=== PATIENT | male | born 1955 | race African-American/Black ===

== ENCOUNTER 2024-05-06 08:10 | Inpatient (IN) | payer OTHER ==
[~2024-05-06] VITALS: Ht 157.5 cm; Wt 94.8 kg
[2024-05-06] VITALS (51 sets, daily range): BP systolic 75–123; BP diastolic 36–69; PULSE 48–111; RESP 10–22; TEMP 93.9–97.8; O2SAT 88–98
[~2024-05-06 08:10] MED LIST: ALLO100T PO; AMIO200T33 PO; ASPI81CH59 PO; ATOR-507 PO; BUME1TAB3 PO; FINA5TAB4 PO; GLIP5TAB21 PO; INSLISPI SC; LATA0.008 EACHEYE; LOSA-533 PO; METF-370 PO; METO2.5T PO; METO25TA93 PO; MIDO5TAB4 PO; PANT40TA2 PO; POTA-180 PO; RIVA15TA PO; TAMS0.4C39 PO; TRAZ-227 PO
--- NOTE | 2024-05-06 08:30 | ED.PDOC ---
HPI Comments HPI: Poor Historian. HPI: 68-year-old male brought in by EMS presents with a chief complaint of hypotension and bradycardia x onset 1900 yesterday evening with associated rectal bleeding. Per EMS, patient is coming from [facility] and staff called EMS after patient was hypotensive and bradycardic. Per EMS, patients initial BP on scene was 80/40 and heart rate was 44. Patient is unaware that he has bright red stool in his diaper, but rectal bleeding was reported by staff per EMS. Patient denies taking of his medications today. Patients BP at bedside evaluation was 89/41. Patient is poor historian and EMS reports that staff at [facility] were also poor historians. Patient denies any family. Past Medical History: CHF, HTN, CVA, A-FIB, DM, HLD, CARDIOMYOPATHY, ANEMIA, GERD, GOUT, STAGE 3 KIDNEY FAILURE, BPH Past Surgical History: Social History: Medications: XARELTO, ASPIRIN, AMIODARONE, PANTOPRAZOLE, LEVAQUIN, HYDROCODONE, METOPROLOL (withheld), Midodrine. Allergies: NKDA REVIEW OF SYSTEMS: CONSTITUTIONAL: Denies acute: fever, diaphoresis, chills, HEAD: Denies acute: headache, photophobia Eyes: Denies acute: Double vision, vision loss, eye pain, eye discharge. EARS: Denies acute: tinnitus, hearing loss, ear discharge, ear pain, THROAT: Denies acute: sore throat, swelling, difficulty swallowing , pain with swallowing, change in voice. NECK: Denies acute: neck pain, neck swelling, stiff neck. HEART: Denies acute : chest pain, palpitations, LUNGS: Denies acute: SOB, wheezing, cough, hemoptysis ABDOMEN: Denies acute: abdominal pain, Nausea, Vomiting, diarrhea, melena , hematemesis, hematochezia SKIN: Denies acute: rash, redness, lesions, itchiness. EXTREMITIES: Denies acute: calf pain, numbness, tingling, weakness, denies pain in extremity. Denies acute: Low back pain. Neuro: Denies acute: focal neurological deficit, motor or sensory focal neurological deficit, tremors, seizure like activity, confusion, dizziness, change in mental status, loss of bowel or bladder function, cauda equina like symptoms. : Denies acute: dysuria, hematuria, flank pain, increase in urinary frequency. PSYCH: Denies acute: hallucination, suicidal ideation, homicidal ideation. PHYSICAL EXAM: General: no acute distress, awake and alert. Head: normocephalic, atraumatic. Neck: supple, trachea is midline, no swelling. Throat: Normal phonation. Eyes:, no erythema, no purulent discharge, no proptosis, no icterus. Heart: regular bradycardia, no significant murmur appreciated. Lungs: no apparent respiratory distress, Able to speak in full sentences. No wheezing, no rhonchi, no crackles. No stridors Clear to auscultation bilaterally. Abdomen: non tender to palpation, non distended, soft, no guarding, no rebound, + bowel sounds. Neuro: Awake, Alert, oriented to name, self, situation, follows commands GCS=15. Speech is normal. Skin: no petechia, no purpura, no cyanosis, non-pale, not jaundice. Lower extremities: --trace bilateral - Pitting edema no deformity, no focal swelling, no calf TTP. Patient is waiting bilateral heel lifts. Makes eye contact. Left upper extremity: 3/4 pitting edema. Patient is neurovascularly intact in the affected extremity. Radial pulses palpable. Motor and sensory are present. Face: no apparent facial droop. History of stroke ED COURSE: Chief Complaint: Low Blood Pressure Time Seen by MD: 08:16 Reviewed Notes: Nurses Notes, Medications, Allergies Allergies: Coded Allergies: Ibuprofen (Verified Allergy, Unknown, 05/06/24) Penicillins (Verified Allergy, Unknown, 05/06/24) Information Source: Patient, Emergency Med Personnel Mode of Arrival: EMS Past Medical History Past Medical History (Other): SEE HPI Surgical History (Other): SEE HPI Family History Family History: Reviewed,noncontributory to illness Social History Smoker: Non-Smoker Alcohol: Denies ETOH Use Drugs: Denies Drug Use Lives In: Senior Living EKG EKG : Pulse Rate (adult): 49 [place]: Normal Cardiac Rhythm: NSR Block: None Hypertrophy: None ST: Old, Lat, Infarct Was a procedure done? Was a procedure done?: No CP Differential Dx Differential Diagnosis: A-fib, A-Flutter, Angina, Anxiety / Panic Attack, Atrial Dysrhythmia, AV Block 1st Degree, AV Block 2nd Degree, AV Block 3rd Degree, Digoxin Toxicity, Electrolyte Disorder, Heart Failure, Hyperthyroidism, Hyperventilation, Hypoxia, MAT, MT, PAC's, Pacemaker Malfunction, PSVT, Pulmonary Embolus, PVC's, Renal Failure, Torsades De Pointes, Ventricular Dysrhythmia, V-Fib, V-Tach, WPW X-Ray, Labs, Meds, VS Vital Signs Date Time Temp Pulse Resp B/P (MAP) Pulse Ox O2 Delivery O2 Flow Rate FiO2 05/06/24 10:36 77/37 05/06/24 10:30 60 12 93/51 (65) 94 05/06/24 10:19 93/51 05/06/24 10:15 18 98 Nasal Cannula* 2 28 05/06/24 09:58 48 19 97 Nasal Cannula* 2 28 05/06/24 08:31 97.9 48 12 85/36 (52) 97 97.9 05/06/24 08:30 49 05/06/24 08:24 97.3 44 18 82/43 (56) 99 05/06/24 08:24 49 Lab Test 05/06/24 10:38 05/06/24 09:47 05/06/24 08:40 Range/Units Lactic Acid Level 4.5 *H 4.2 *H 0.4-2.0 mmol/L Troponin I High Sensitivity 643 *H 635 *H </=54 ng/L White Blood Count 5.4 4.4-10.8 10^3/uL Red Blood Count 2.93 L 4.5-5.90 10^6/uL Hemoglobin 9.6 L 13.5-17.5 g/dL Hematocrit 29.6 L 41.0-53.0 % Mean Corpuscular Volume 101.1 H 80.0-100.0 fL Mean Corpuscular Hemoglobin 32.7 H 28.0-32.0 pg Mean Corpuscular Hemoglobin Concent 32.3 32.0-36.0 g/dL Red Cell Distribution Width 20.5 H 11.8-14.3 % Platelet Count 288 140-450 10^3/uL Mean Platelet Volume 10.0 6.9-10.8 fL Neutrophils (%) (Auto) 87.2 H 37.0-80.0 % Lymphocytes (%) (Auto) 5.2 L 10.0-50.0 % Monocytes (%) (Auto) 6.4 0.0-12.0 % Eosinophils (%) (Auto) 0.2 0.0-7.0 % Basophils (%) (Auto) 1.0 0.0-2.0 % Neutrophils # (Auto) 4.7 1.6-8.6 10 ^3/uL Lymphocytes # (Auto) 0.3 L 0.4-5.4 10 ^3/uL Monocytes # (Auto) 0.3 0-1.3 10 ^3/uL Eosinophils # (Auto) 0 0-0.8 10 ^3/uL Basophils # (Auto) 0.1 0-0.2 10 ^3/uL Nucleated Red Blood Cells 0.2 % Prothrombin Time 24.3 H 9.3-11.8 sec Prothrombin Time INR 2.51 H 0.9-1.15 Activated Partial Thromboplast Time 38.2 H 24.5-34.5 SEC Sodium Level 135 L 136-145 mmol/L Potassium Level 6.2 *H 3.5-5.1 mmol/L Chloride Level 106 98-107 mmol/L Carbon Dioxide Level 14 L 20-31 mmol/L Anion Gap 15 5-15 Blood Urea Nitrogen 123 *H 9-23 mg/dL Creatinine 5.72 H 0.700-1.30 mg/dL Glomerular Filtration Rate Calc 10 >90 mL/min BUN/Creatinine Ratio 21.5 H 10.0-20.0 Serum Glucose 118 H 74-106 mg/dL Hemoglobin A1c 5.7 <5.7 % A1C Calcium Level 8.9 8.7-10.4 mg/dL Magnesium Level 3.0 H 1.6-2.6 mg/dL Total Bilirubin 5.3 H 0.2-1.0 mg/dL Aspartate Amino Transferase (AST) 151 H 13-40 U/L Alanine Aminotransferase (ALT) 38 7-40 U/L Alkaline Phosphatase 767 H 46-116 U/L B-Type Natriuretic Peptide 981.10 0-100 pg/mL Total Protein 7.1 5.7-8.2 g/dL Albumin 3.2 3.2-4.8 g/dL Triglycerides Level 94 < 150 mg/dL Cholesterol Level 88 < 200 mg/dL LDL Cholesterol 46 < 100 mg/dL HDL Cholesterol 13 L 40-59 mg/dL Thyroid Stimulating Hormone (TSH) 8.04 H 0.55-4.78 uIU/mL Current Medications Medications (Trade) Dose Ordered Sig/Eloy Route Start Time Stop Time Status Last Admin Midodrine (Proamatine Tablet) 10 mg ONCE ONCE PO 05/06/24 08:30 05/06/24 08:31 DC 05/06/24 08:40 Pantoprazole Sodium (Protonix) 40 mg ONCE ONCE IV 05/06/24 09:00 05/06/24 09:01 DC 05/06/24 10:16 Dopamine HCl/ Dextrose 250 ml @ 18.75 mls/ hr [id number] ONCE IV 05/06/24 09:30 05/06/24 22:49 05/06/24 10:19 Insulin Human Regular (InsuLIN R) 10 units ONCE ONCE IV 05/06/24 09:45 05/06/24 10:09 DC 05/06/24 11:11 Dextrose 50 ml ONCE ONCE IV 05/06/24 09:45 05/06/24 10:09 DC 05/06/24 11:12 Albuterol (Ventolin Medneb) 20 mg ONCE ONCE NEB 05/06/24 09:45 05/06/24 10:09 DC 05/06/24 10:14 Sodium Bicarbonate 50 ml ONCE ONCE IV 05/06/24 09:45 05/06/24 10:09 DC 05/06/24 11:01 Furosemide (Lasix Injection) 40 mg ONCE ONCE IV 05/06/24 09:45 05/06/24 10:09 DC 05/06/24 11:32 Calcium Gluconate/ Sodium Chloride 50 ml @ 120 mls/hr ONCE ONCE IV 05/06/24 09:45 05/06/24 10:09 DC 05/06/24 10:39 Zirconium Oxide (Lokelma) 10 gm ONCE ONCE PO 05/06/24 09:45 05/06/24 10:09 DC 05/06/24 10:18 Sodium Bicarbonate 100 ml ONCE ONCE IV 05/06/24 10:15 05/06/24 10:24 DC 05/06/24 12:[address] [address] Ph: [phone] DIAGNOSTIC IMAGING Diagnostic Imaging Report : [id number] Signed PATIENT: HERRERA LEON ACCT: [id number] UNIT: [id number] : 1955 LOC: ER ROOM / BED: / AGE / SEX: 68 / M ADM STATUS: REG ER SERVICE 0823 ORDERING PHYSICIAN: ANDRES OLIVEIRA DO PROCEDURE(s): CXRP - CHEST PORTABLE REASON: weak/ ORDER NUMBER(s): [id number], ACCESSION NUMBER(s): [id number] EXAM: XR Chest, 1 View CLINICAL INDICATION: weak/ TECHNIQUE: Frontal view of the chest. COMPARISON: None FINDINGS: LUNGS AND PLEURAL SPACES: See below. HEART: Cardiomegaly with pulmonary congestion and edema. Superimposed pneumonia cannot be excluded. MEDIASTINUM: Unremarkable. Normal mediastinal contour. BONES/JOINTS: Unremarkable. No acute fracture. OTHER FINDINGS: . IMPRESSION: Cardiomegaly with pulmonary congestion and edema. Superimposed pneumonia cannot be excluded. ATED BY: FAHAD REID MD DICTATED DATE/TIME: 05/06/24911 SIGNED BY: FAHAD REID MD SIGNED DATE/TIME: 05/06/24911 CC: [place] [id number] Ph: [phone] DIAGNOSTIC IMAGING Diagnostic Imaging Report : [id number] Signed PATIENT: HERRERA LEON ACCT: [id number] UNIT: [id number] : 1955 LOC: OVERFLOW ROOM / BED: [address] [place] [address] / AGE / SEX: 68 / M ADM STATUS: ADM IN SERVICE ORDERING PHYSICIAN: ANDRES OLIVEIRA DO PROCEDURE(s): ABPL - CT AB PEL WO CON-NO ORAL OR IV REASON: poss rectal bleed ORDER NUMBER(s): [id number], ACCESSION NUMBER(s): [id number] Procedure: CT CT AB PEL WO CON-NO ORAL OR IV 05/06/2024 10:03 AM Indication: poss rectal bleed Comparison Study: None Technique: Axial images were obtained and reformatted in coronal and sagittal planes. All CT scans at this medical facility are performed using dose modulation techniques as appropriate to a performed exam including the following: Automated exposure control was utilized; adjustment of the MA and/or KV according to patient size; and use of iterative reconstruction technique. CT Dose: CTDI volume is 23.99 mGy. Dose-length product is 1150.33 mGy*cm FINDINGS: Lower Chest: Moderate bilateral pleural effusions with adjacent pulmonary opacities. Scattered ground-glass opacities are seen in the right lower lobe. Mild cardiomegaly. No pericardial effusion Hepatobiliary: Liver is unremarkable. No intrahepatic or extrahepatic ductal dilatation. Homogeneous dense material seen in gallbladder lumen may represent vicarious excretion of contrast from prior IV contrast administration. Correlate with history. Mild perihepatic and pericholecystic fluid noted. Mild gallbladder wall edema likely related to CHF. Spleen: Unremarkable. Pancreas: Unremarkable. Adrenal Glands: Unremarkable. tract: The kidneys are normal in size bilaterally without hydronephrosis or nephrolithiasis. Mild diffuse bladder wall thickening could be at least in part due to lack of distention. GI tract: The stomach is grossly normal in appearance. No evidence of small bowel obstruction. Scattered colonic diverticula are noted without evidence of diverticulitis. The appendix is normal. Lymphatics: No mesenteric, retroperitoneal or periportal lymphadenopathy. Vasculature: The abdominal aorta is normal in in caliber. Pelvic Organs: Unremarkable Bones/soft tissues: No acute abnormality. Multilevel degenerative changes of the lumbar spine noted. Moderate body wall edema. Other: None. IMPRESSION: 1. CHF with evidence of volume overload, moderate bilateral pleural effusions trace upper abdominal ascites and body wall edema. 2. Few colonic diverticula with no evidence of diverticulitis. Rectum is grossly unremarkable unenhanced study.Mild 3. Gallbladder wall edema likely related to CHF. Further evaluation with gallbladder ultrasound could be completed there is clinical concern for cholecystitis. ATED BY: JODI RANDALL MD DICTATED DATE/TIME: 05/06/24 1112 SIGNED BY: JODI RANDALL MD SIGNED DATE/TIME: 05/06/24 111 CC: [place] [id number] Ph: [phone] DIAGNOSTIC IMAGING Diagnostic Imaging Report : [id number] Signed PATIENT: HERRERA LEON ACCT: [id number] UNIT: [id number] : 1955 LOC: ER ROOM / BED: / AGE / SEX: 68 / M ADM STATUS: REG ER SERVICE ORDERING PHYSICIAN: ANDRES OLIVEIRA DO PROCEDURE(s): LUDVT - LT Upper DVT REASON: swelling ORDER NUMBER(s): [id number], ACCESSION NUMBER(s): [id number] LEFT Upper Extremity Venous Duplex Clinical History: swelling Comparison: None Technique: Duplex Doppler evaluation of the venous system of the LEFT lower neck and upper extremity including color Doppler and spectral/pulsed waveform analysis was performed. Findings: The internal jugular vein demonstrates appropriate compressibility and waveform variability. The subclavian vein is patent on color Doppler evaluation without intraluminal thrombus and demonstrates waveform variability. The visualized portion of the brachiocephalic vein is patent on color Doppler evaluation without intraluminal thrombus and demonstrates waveform variability. The axillary vein demonstrates appropriate compressibility and waveform variability. The brachial veins demonstrate appropriate compressibility and patency on Doppler evaluation. The basilic vein is not visualized The cephalic vein is not visualized Impression: No venous thrombus identified in the LEFT upper extremity vessels evaluated above. ATED BY: TOMASZ PELLETIER MD DICTATED DATE/TIME: 05/06/24 1010 SIGNED BY: TOMASZ PELLETIER MD SIGNED DATE/TIME: 05/06/24 1010 CC: Time of 1ST Reevaluation: 08:46 Reevaluation 1ST: Unchanged Time of 2ND Reevaluation: 09:47 (Labs just came back. Hyperkalemia protocol initiated. I ordered a PICC line however the PICC line nurse said that the patient must have a nephrology consult 1st. Nephrology was consulted at this time. Still waiting for them to call back. Midline will be started to initiate dopamine temporarily. Cardiology was also consulted at this time. ) Patient Education/Counseling: Diagnosis, Treatment Family Education/Counseling: Other Comments Patient presented with the above HPI.--cardiac----workup was initiated. patient was found with the above mentioned diagnosis. the following medications were ordered: please refer to order lists of meds and tests obtained by myself Dr. Oliveira. Patient ED course and VS have been stabilized. Patient has been reassessed in the ED and remained in a stable condition. Pertinent incidental findings were discussed with the patient and/or family. Patient/family voices understanding and is agreeable with plan. Patient has been observed in the ED adequate length of time to insure improvement/stability. Escalation of care considered: Consideration of escalation to observation or admission Patient was ADMITTED to the medicine team for further evaluation and treatment of their presentation. Dopamine drip was initiated given his bradycardia and hypotension. Hyperkalemia protocol initiated. Protonix given for suspected GI bleed. Broad- spectrum antibiotics given. Cardiology was consulted. Nephrology was consulted. All the reports of any imaging studies that were ordered by myself were reviewed by myself. Departure 1 Departure Time of Disposition: 08:52 Impression: Primary Impression: Hypotension Additional Impressions: Bradycardia Generalized weakness CHF exacerbation Pulmonary edema Acute renal failure Hyperkalemia Elevated troponin Volume overload Disposition: ADMITTED INPATIENT Admit to: [facility] Condition: Guarded Discharged With: Self Critical Care Note Critical Care Time?: Yes (90 min-critical care time only) Heart Score Heart Score: Heart Score Response (Comments) Value History Moderate Suspicious 1 EKG Normal 0 Age >65 2 Risk Factors >3 or Hx ASHD 2 Troponin >3 x's Normal limit 2 Total 7 I personally scribed for ANDRES OLIVEIRA DO ([email or web address]) on 05/06/24 at 08:30. Electronically submitted by Michael Lake ([email or web address]). ANDRES OLIVEIRA DO May 06, 2024 08:30
[2024-05-06] MEDS: MIDODRINE HCL 10 MG TAB PO ONE (08:40)
[2024-05-06 09:05] LABS: Basophils # (auto) 0.1 10 ^3/uL (0-0.2); Eosinophils # (auto) 0 10 ^3/uL (0-0.8); Hemoglobin 9.6 g/dL (13.5-17.5); Neutrophils # (auto) 4.7 10 ^3/uL (1.6-8.6); Neutrophils % (auto) 87.2 % (37.0-80.0); Nucleated Red Blood Cells % 0.2 %; White Blood Cell 5.4 10^3/uL (4.4-10.8)
[2024-05-06 09:06] LABS: Eosinophils % (auto) 0.2 % (0.0-7.0); Hematocrit 29.6 % (41.0-53.0); Lymphocytes # (auto) 0.3 10 ^3/uL (0.4-5.4); Lymphocytes % (auto) 5.2 % (10.0-50.0); Mean Corpuscular Hemoglobin 32.7 pg (28.0-32.0); Mean Corpuscular Hgb Conc. 32.3 g/dL (32.0-36.0); Mean Corpuscular Volume 101.1 fL (80.0-100.0); Monocytes # (auto) 0.3 10 ^3/uL (0-1.3); Monocytes % (auto) 6.4 % (0.0-12.0); Platelet Count (auto) 288 10^3/uL (140-450); Red Blood Cells 2.93 10^6/uL (4.5-5.90); Red Cell Distribution Width 20.5 % (11.8-14.3)
--- NOTE | 2024-05-06 09:14 | DVH ---
EXAM: XR Chest, 1 View CLINICAL INDICATION: weak/ TECHNIQUE: Frontal view of the chest. COMPARISON: None FINDINGS: LUNGS AND PLEURAL SPACES: See below. HEART: Cardiomegaly with pulmonary congestion and edema. Superimposed pneumonia cannot be excluded. MEDIASTINUM: Unremarkable. Normal mediastinal contour. BONES/JOINTS: Unremarkable. No acute fracture. OTHER FINDINGS: . IMPRESSION: Cardiomegaly with pulmonary congestion and edema. Superimposed pneumonia cannot be excluded.
[2024-05-06 09:21] LABS: Alanine Aminotransferase 38 U/L (7-40); Anion Gap 15 (5-15); BUN/Creatinine Ratio 21.5 (10.0-20.0); Calcium 8.9 mg/dL (8.7-10.4); Chloride 106 mmol/L (98-107); Total Protein 7.1 g/dL (5.7-8.2)
[2024-05-06 09:30] LABS: Albumin 3.2 g/dL (3.2-4.8); Alkaline Phosphatase 767 U/L (46-116); Aspartate Aminotransferase 151 U/L (13-40); Bilirubin, Total 5.3 mg/dL (0.2-1.0); Carbon Dioxide 14 mmol/L (20-31); Glucose 118 mg/dL (74-106); Sodium 135 mmol/L (136-145)
[2024-05-06 09:34] LABS: Blood Urea Nitrogen 123 mg/dL (9-23); Lactic Acid w/Reflex 4.2 mmol/L (0.4-2.0); Potassium 6.2 mmol/L (3.5-5.1)
[2024-05-06 09:46] LABS: INR 2.51 (0.9-1.15); Partial Thromboplastin Time 38.2 SEC (24.5-34.5); Prothrombin Time 24.3 sec (9.3-11.8)
[2024-05-06] MEDS: ALBUTEROL SULF 2.5 MG/0.5ML(0.5%) NEB SOLN ONE (10:14)
[2024-05-06] MEDS: ALBUTEROL SULF 2.5 MG/0.5ML(0.5%) NEB SOLN NEB ONE (10:14)
--- NOTE | 2024-05-06 10:15 | DVH ---
LEFT Upper Extremity Venous Duplex Clinical History: swelling Comparison: None Technique: Duplex Doppler evaluation of the venous system of the LEFT lower neck and upper extremity including color Doppler and spectral/pulsed waveform analysis was performed. Findings: The internal jugular vein demonstrates appropriate compressibility and waveform variability. The subclavian vein is patent on color Doppler evaluation without intraluminal thrombus and demonstra lisa waveform variability. The visualized portion of the brachiocephalic vein is patent on color Doppler evaluation without intr aluminal thrombus and demonstrates waveform variability. The axillary vein demonstrates appropriate compressibility and waveform variability. The brachial veins demonstrate appropriate compressibility and patency on Doppler evaluation. The basilic vein is not visualized The cephalic vein is not visualized Impression: No venous thrombus identified in the LEFT upper extremity vessels evaluated above.
[2024-05-06] MEDS: PANTOPRAZOLE 40 MG/10 ML VIAL INJ IV ONE ×2 (10:16→11:08)
[2024-05-06] MEDS: SODIUM ZIRCONIUM CYCL 10 GM PAK PO ONE (10:18)
[2024-05-06] MEDS: DOPamine 1600MCG/ML D5W 250 ML IV ONE (10:19)
[2024-05-06] MEDS: CALCIUM GLUC 1,000mg/50ml-NS 50 ML IV ONE (10:39)
[2024-05-06] MEDS ORDERED: NITROGLYCERIN 0.4 MG SL TAB SL PRN (10:45)
[2024-05-06] MEDS: SODIUM BICARB 8.4% 50Meq/50ml SYR INJ IV ONE (11:01)
--- NOTE | 2024-05-06 11:02 | DVHHP2 ---
History of Present Illness Reason for Visit: Hypotension and bradycardia History of Present Illness 68-year-old male with a history of heart failure, cardiomyopathy, chronic kidney disease, atrial fibrillation, diabetes, hypertension, dyslipidemia, gout, GERD who came from [facility] for low blood pressure and bradycardia and bleeding. The patient has been there since about 2 weeks after what it appears he was discharged from another facility after he had sepsis and respiratory failure and was treated for atrial fibrillation. He is on Xarelto. It is reported that he has a nosebleed and rectal bleeding. The patient says he feels his abdomen is tight. The nurses tried to insert a Brown catheter but it was not possible. 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 Endocrine: Diabetes Review of Systems Constitutional: Yes: Weakness Gastrointestinal: Abdominal Pain Neurological: Weakness Allergies: Coded Allergies: Ibuprofen (Verified Allergy, Unknown, 05/06/24) Penicillins (Verified Allergy, Unknown, 05/06/24) Medications Current Medications Medications Dose Ordered Sig/Eloy Route Start Time Stop Time Status Last Admin Dose Admin Nitroglycerin 0.4 mg Q5MINP PRN SL 05/06/24 10:45 UNV Morphine Sulfate 2 mg Q30M PRN IV 05/06/24 10:45 UNV Exam Vital Signs Vital Signs Date Time Temp Pulse Resp B/P (MAP) Pulse Ox O2 Delivery O2 Flow Rate FiO2 05/06/24 10:19 93/51 05/06/24 10:15 18 98 Nasal Cannula* 2 28 05/06/24 08:31 97.9 48 97.9 General Appearance: Alert, Oriented X3, Cooperative Respiratory: Other (Bilateral rhonchi) Cardiovascular: Other (Bradycardic heart rate is 50) Abdominal: Normal bowel sounds Extremities: Other (+edema in the upper and lower extremities and 3+ edema in the left arm) Labs/Xrays Labs Test 05/06/24 10:38 05/06/24 09:47 05/06/24 08:40 Range/Units Troponin I High Sensitivity 643 *H </=54 ng/L White Blood Count 5.4 4.4-10.8 10^3/uL Red Blood Count 2.93 L 4.5-5.90 10^6/uL Hemoglobin 9.6 L 13.5-17.5 g/dL Hematocrit 29.6 L 41.0-53.0 % Mean Corpuscular Volume 101.1 H 80.0-100.0 fL Mean Corpuscular Hemoglobin 32.7 H 28.0-32.0 pg Mean Corpuscular Hemoglobin Concent 32.3 32.0-36.0 g/dL Red Cell Distribution Width 20.5 H 11.8-14.3 % Platelet Count 288 140-450 10^3/uL Mean Platelet Volume 10.0 6.9-10.8 fL Neutrophils (%) (Auto) 87.2 H 37.0-80.0 % Lymphocytes (%) (Auto) 5.2 L 10.0-50.0 % Monocytes (%) (Auto) 6.4 0.0-12.0 % Eosinophils (%) (Auto) 0.2 0.0-7.0 % Basophils (%) (Auto) 1.0 0.0-2.0 % Neutrophils # (Auto) 4.7 1.6-8.6 10 ^3/uL Lymphocytes # (Auto) 0.3 L 0.4-5.4 10 ^3/uL Monocytes # (Auto) 0.3 0-1.3 10 ^3/uL Eosinophils # (Auto) 0 0-0.8 10 ^3/uL Basophils # (Auto) 0.1 0-0.2 10 ^3/uL Nucleated Red Blood Cells 0.2 % Prothrombin Time 24.3 H 9.3-11.8 sec Prothrombin Time INR 2.51 H 0.9-1.15 Activated Partial Thromboplast Time 38.2 H 24.5-34.5 SEC Sodium Level 135 L 136-145 mmol/L Potassium Level 6.2 *H 3.5-5.1 mmol/L Chloride Level 106 98-107 mmol/L Carbon Dioxide Level 14 L 20-31 mmol/L Anion Gap 15 5-15 Blood Urea Nitrogen 123 *H 9-23 mg/dL Creatinine 5.72 H 0.700-1.30 mg/dL Glomerular Filtration Rate Calc 10 >90 mL/min BUN/Creatinine Ratio 21.5 H 10.0-20.0 Serum Glucose 118 H 74-106 mg/dL Calcium Level 8.9 8.7-10.4 mg/dL Magnesium Level 3.0 H 1.6-2.6 mg/dL Total Bilirubin 5.3 H 0.2-1.0 mg/dL Aspartate Amino Transferase (AST) 151 H 13-40 U/L Alanine Aminotransferase (ALT) 38 7-40 U/L Alkaline Phosphatase 767 H 46-116 U/L B-Type Natriuretic Peptide 981.10 0-100 pg/mL Total Protein 7.1 5.7-8.2 g/dL Albumin 3.2 3.2-4.8 g/dL Assessment/Plan Assessment/Plan Severe sepsis with septic shock Bradycardia Possible GI bleed Acute on chronic kidney disease Acute heart failure, possibly systolic Pulmonary edema Hyperkalemia Anemia, macrocytic History of chronic kidney disease stage 3 Elevated liver function tests with a total bilirubin of 5.3 Lactic acidosis NSTEMI Urinary retention History of heart failure and cardiomyopathy History of CVA Atrial fibrillation on Xarelto Mixed hyperlipidemia Type 2 diabetes BPH Recent sepsis and respiratory failure History of gout GERD Plan Admit to ICU Dopamine drip Oxygen as needed Calcium gluconate Lokelma Keep NPO now Neurology consult Cardiology consult Echocardiogram Urology consult because a Brown catheter could not be inserted Possible urinary retention Broad-spectrum antibiotics meropenem and Zyvox Plan discussed with: Patient My Orders Orders - RONALD SUÁREZ MD Procedure Category Date Status Time Admit ADMIT 05/06/24 Transmitted 10:41 Nitroglycerin [facility] 05/06/24 Logged Sublingual (Ntrostat 10:45 Morphine Sulfate PHA 05/06/24 Logged Injection 10:45 Stat Ekg For Chest CAT 05/06/24 In Process Pain 10:41 Notify Of Changes CAT 05/06/24 In Process From Base 10:41 Warp Coiler For CAT 05/06/24 In Process 24 Hours 10:41 Emergency Dysrhythmia CAT 05/06/24 In Process Protocol 10:41 Rhythm Strips Once [facility] 05/06/24 In Process Every Shift 10:41 Oxygen By Nasal RT 05/06/24 Transmitted Cannula 10:41 Npo (Nothing By DIET 05/06/24 Transmitted Mouth) Diet Lunch *Dr. [facility] CONS 05/06/24 Transmitted -[place] 10:41 * Urology Consult CONS 05/06/24 Transmitted 10:41 Complete Blood Count LAB 05/07/24 Verified 04:00 Comprehensive LAB 05/07/24 Verified Metabolic Panel 04:00 PTPTT LAB 05/07/24 Verified 04:00 Magnesium LAB 05/07/24 Verified 04:00 Urinalysis LAB 05/06/24 Verified 10:44 Date of Service: May 06, 2024 Billing Provider: RONALD SUÁREZ MD Common Visit Codes: NOT BILLABLE RONALD SUÁREZ MD May 06, 2024 11:02
[2024-05-06] MEDS: InsuLIN REG 1unit/0.01ml Soln (100units/ml) IV ONE (11:11)
[2024-05-06] MEDS: DEXTROSE (50%) 50ML SYRG IV ONE (11:12)
[2024-05-06] MEDS: MEROPENEM 500MG IVPB 50 ML IV ONE (11:15)
[2024-05-06] MEDS ORDERED: DEXTROSE (50%) 50ML SYRG IV PRN (11:15)
--- NOTE | 2024-05-06 11:15 | DVH ---
Procedure: CT CT AB PEL WO CON-NO ORAL OR IV 05/06/2024 10:03 AM Indication: poss rectal bleed Comparison Study: None Technique: Axial images were obtained and reformatted in coronal and sagittal planes. All CT scans at this medical facility are performed using dose modulation techniques as appropriate to a performed e xam including the following: Automated exposure control was utilized; adjustment of the MA and/or KV according to patient size; and use of iterative reconstruction technique. CT Dose: CTDI volume is 23. 99 mGy. Dose-length product is 1150.33 mGy*cm FINDINGS: Lower Chest: Moderate bilateral pleural effusions with adjacent pulmonary opacities. Scattered groun d-glass opacities are seen in the right lower lobe. Mild cardiomegaly. No pericardial effusion Hepatobiliary: Liver is unremarkable. No intrahepatic or extrahepatic ductal dilatation. Homogeneous dense material seen in gallbladder lumen may represent vicarious excretion of contrast from prior IV contrast administration. Correlate with history. Mild perihepatic and pericholecystic fluid noted. Mild gallbladder wall edema likely related to CHF. Spleen: Unremarkable. Pancreas: Unremarkable. Adrenal Glands: Unremarkable. tract: The kidneys are normal in size bilaterally without hydronephrosis or nephrolithiasis. Mild diffuse bladder wall thickening could be at least in part due to lack of distention. GI tract: The stomach is grossly normal in appearance. No evidence of small bowel obstruction. Scatte red colonic diverticula are noted without evidence of diverticulitis. The appendix is normal. Lymphatics: No mesenteric, retroperitoneal or periportal lymphadenopathy. Vasculature: The abdominal aorta is normal in in caliber. Pelvic Organs: Unremarkable Bones/soft tissues: No acute abnormality. Multilevel degenerative changes of the lumbar spine noted. Moderate body wall edema. Other: None. IMPRESSION: 1. CHF with evidence of volume overload, moderate bilateral pleural effusions trace upper abdominal a scites and body wall edema. 2. Few colonic diverticula with no evidence of diverticulitis. Rectum is grossly unremarkable unenhan misha study.Mild 3. Gallbladder wall edema likely related to CHF. Further evaluation with gallbladder ultrasound could be completed there is clinical concern for cholecystitis.
--- NOTE | 2024-05-06 11:17 | DVH ---
EXAM: US Retroperitoneal Limited, Renal CLINICAL INDICATION: lucy TECHNIQUE: Real-time limited ultrasound of the retroperitoneum with image documentation. COMPARISON: None FINDINGS: RIGHT KIDNEY: Increased renal echogenicity, bilaterally could represent renal parenchymal disease. No stones. No hydronephrosis. Right kidney measures 9.3 cm. LEFT KIDNEY: Left kidney measures 8.4 cm. BLADDER: Urinary bladder is not fully distended. FREE FLUID: Ascites in the right lower abdominal quadrant and left lower abdominal quadrant. PLEURAL SPACE: Right pleural effusion. OTHER FINDINGS: . IMPRESSION: Increased renal echogenicity, bilaterally could represent renal parenchymal disease.
[2024-05-06] MEDS: FUROSEMIDE 40 MG/4 ML VIAL IV ONE (11:32)
[2024-05-06] MEDS: ACCU-CHEK COMFORT CURVE STRIP VI SCH (12:00)
[2024-05-06] MEDS: InsuLIN REG 1unit/0.01ml Soln (100units/ml) SC SCH (12:00)
[2024-05-06 12:22] LABS: Base Excess -13.4 mmol/L (-2.0-3.0)
[2024-05-06] MEDS ORDERED: LINEZOLID 600MG/300ML 300 ML IV SCH (12:30)
[2024-05-06] MEDS: SODIUM BICARB 8.4% 50Meq/50ml SYR Vial IV ONE ×2 (12:33→15:17)
[2024-05-06] MEDS: BUMETANIDE 2.5mg/10ml (0.25 mg/ml) INJ IV ONE (12:33)
[2024-05-06] MEDS: NOREPINEPHRINE BITARTRATE 32 MG in SODIUM CHL 0.9% 218 ML IV SCH (13:00)
[2024-05-06] MEDS ORDERED: AZTREONAM 1GM INJ 0.5 GM in D5W 5% 50 ML IV SCH (14:00)
[2024-05-06 15:05] LABS: Chloride 103 mmol/L (98-107); Sodium 137 mmol/L (136-145)
[2024-05-06 15:06] LABS: Anion Gap 20 (5-15)
[2024-05-06 15:11] LABS: BUN/Creatinine Ratio 21.4 (10.0-20.0)
--- NOTE | 2024-05-06 15:17 | DVHSR ---
APPROVED REPORT EXAM: Two-dimensional and M-mode echocardiogram with Doppler and color Doppler. Blood Pressure: 99/38 mmHg INDICATION CHF RISK FACTORS Height: 6'0", Weight: 220 DIMENSIONS LVDd4.2 (3.8-5.7cm)LA (2D)4.5 (1.9-4.0cm)Aortic Root4.1 (2.0-3.7cm) LVDs3.4 (2.5-4.0cm)LA (MM) (1.9-4.0cm)Aortic Cusp Exc1.8 (1.5-2.0cm) EF (%) 40.0 (55-70%)Rt. Atrium4.5 (1.9-4.0cm)Asc. Aorta cm IVSd2.0 (0.7-1.1cm)RV (D)4.6 (1.8-2.4cm) PWd2.0 (0.7-1.1cm) Mitral Valve MitralMitral Stenosis E wave0.80m/sMV Mean GR.mmHg E/A ratio0.02D MVAcm2 Aortic Valve Aortic ValveAortic Stenosis V10.90m/Edwina Mean GR.2mmHg V21.10m/Edwina Peak GR.5mmHg LVOT Diameter1.8 (1.8-2.4cm)Doppler AVA2.08cm2 Pulmonic Valve V20.63m/s Tricuspid Valve TR Velocity2.70m/s [id number] Other Information Technically limited study due to body habitus and patient position. Conclusion lvef 25-30% severe concentric LVH, RV failure noted biatrial enlargement significant L pleural effusion noted mild to moderate tricuspid regurg moderate pulmonic regurg mild mitrla regurg
[2024-05-06 15:18] LABS: Carbon Dioxide 14 mmol/L (20-31); Glucose 125 mg/dL (74-106)
[2024-05-06 15:19] LABS: Blood Urea Nitrogen 124 mg/dL (9-23); Potassium 5.6 mmol/L (3.5-5.1)
[2024-05-06] MEDS: ONDANSETRON HCL 4 MG/2 ML VIAL IV PRN (15:41)
[2024-05-06] MEDS: LIDOCAINE 2% TOPICAL JELLY 5 ML URJT TOP STA ×2 (16:30→16:41)
--- NOTE | 2024-05-06 16:37 | DVHINCON2 ---
CARRIE POOL [facility] 05/06/24 1637: Date Seen: May 06, 2024 Referring Physician MD Larry Reason for Consultation Elevated troponin History of Present Illness This is a 68-year-old male patient who presents to the emergency room with chief complaint of rectal bleed, bloody nose, bradycardia, hypotension, and shortness of breath. The patient comes from [facility]. According to records, the nurses noted blood in the patient's diaper and EMS was called at that time. When EMS arrived, the patient was noticed to be hypotensive as well as bradycardic. He was brought to the emergency room for further evaluation. Initial twelve lead electrocardiogram is indeterminate rhythm with a wide QRS complex (reviewed with ). At the time of assessment, a repeat twelve lead electrocardiogram was requested and obtained and reveals low voltage with atrial fibrillation and prolonged QTc interval. Initial troponin level of 635ng/L with flat trend thereafter. Initial BNP level of 981.10pg/mL. Significant past medical history includes congestive heart failure, atrial fibrillation (on Xarelto and amiodarone), hypertension, dyslipidemia, history of left lower extremity DVT, anemia, benign prostatic hyperplasia, chronic kidney disease, GERD. The patient reports following up with busgirl in the outpatient setting. Past Medical History Past medical history reviewed. No other significant than mentioned above. Past Surgical History Denies Family History: Patient reports no known family medical history. Family History Family history reviewed. Social History Denies the use of tobacco, alcohol or illicit drugs. Allergies: Coded Allergies: Ibuprofen (Verified Allergy, Unknown, 05/06/24) Penicillins (Verified Allergy, Unknown, 05/06/24) Home Meds Home medications reviewed. Current Medications Current Medications Medications (Trade) Dose Ordered Sig/Eloy Route PRN Reason Start Time Stop Time Status Last Admin Nitroglycerin (Ntrostat Sublingual) 0.4 mg Q5MINP PRN SL FOR CHEST PAIN 05/06/24 10:45 Morphine Sulfate 2 mg Q30M PRN IV FOR CHEST PAIN 05/06/24 10:45 Pantoprazole Sodium (Protonix) 40 mg BID IV 05/06/24 22:00 Ondansetron HCl (Zofran) 4 mg Q4HPRN PRN IV NAUSEA / VOMITING 05/06/24 11:00 05/06/24 15:41 Aztreonam 0.5 gm/ Dextrose 50 ml @ 100 mls/hr Q8HR IV 05/06/24 14:00 05/06/24 11:01 DC Linezolid 300 ml @ 300 mls/hr Q12HR IV 05/06/24 12:30 05/06/24 13:58 DC Meropenem 50 ml @ 17 mls/hr Q12HR IV 05/06/24 22:00 Diagnostic Test (Pha) (Accu-Chek Comfort Curve T) 1 strip Q6HR 05/06/24 12:00 05/06/24 12:00 Insulin Human Regular (InsuLIN R) Q6HR SC 05/06/24 12:00 Dextrose 50 ml UD PRN IV Blood Sugar LESS THAN 60 05/06/24 11:15 Norepinephrine Bitartrate 32 mg/ Sodium Chloride 250 ml @ 0.938 mls/ hr Q24H IV 05/06/24 13:00 Linezolid 300 ml @ 300 mls/hr Q12H IV 05/06/24 17:00 Methylprednisolone Sodium Succinate (Solu Medrol) 40 mg BID IV 05/06/24 22:00 Review of Systems Constitutional: No symptom reported Ears, Nose, & Throat: No symptom reported Eyes: No symptom reported Neurological: No symptoms reported Pulmonary/Respiratory: Shortness of breath Cardiovascular: No symptom reported Gastrointestinal: Rectal bleed Genitourinary: No symptom reported Musculoskeletal: No symptom reported Skin: No symptom reported Psychiatric: No symptom reported Endocrine: No symptom reported Hematologic/Lymphatic: No symptom reported Vital Signs Vital Signs Date Time Temp Pulse Resp B/P (MAP) Pulse Ox O2 Delivery O2 Flow Rate FiO2 05/06/24 14:31 89 18 93 50.0 55 05/06/24 12:57 Simple Mask* 05/06/24 12:57 93.9 89/42 (58) 93.9 Physical Exam General Appearance: Cooperative. Well-developed. Well-nourished. No acute distress. Pulmonary/Respiratory: Clear, bilateral breaths sounds. Cardiovascular/Chest: Irregular rate and rhythm. Peripheral Pulses: 2+ Radial (R). 2+ Radial (L). 2+ Pedal (R). 2+ Pedal (L) Abdominal Exam: Normal bowel sounds. Ankle Exam: Negative ankle edema Lower extremities: Negative lower extremity edema Neuro/Mental Status: A/OX3, coherent. Thoughts/Psych: Normal thought pattern. Appropriate mood and affect. Good judgment and insight. Appearance: No acute distress. Skin Exam: Normal inspection. Normal color. Warm and dry. Labs/Diagnostic Data Labs Test 05/06/24 14:10 05/06/24 13:36 05/06/24 13:07 05/06/24 12:08 Range/Units Sodium Level 137 136-145 mmol/L Potassium Level 5.6 *H 3.5-5.1 mmol/L Chloride Level 103 98-107 mmol/L Carbon Dioxide Level 14 L 20-31 mmol/L Anion Gap 20 H 5-15 Blood Urea Nitrogen 124 *H 9-23 mg/dL Creatinine 5.79 H 0.700-1.30 mg/dL Glomerular Filtration Rate Calc 10 >90 mL/min BUN/Creatinine Ratio 21.4 H 10.0-20.0 Serum Glucose 125 H 74-106 mg/dL Calcium Level 9.0 8.7-10.4 mg/dL Troponin I High Sensitivity 744 *H </=54 ng/L Blood Gas Specimen Type Arterial Blood Gas Sample Site Left radial Blood Gas Patient Temperature 37.0 Arterial Blood Date Drawn [id number] Arterial Blood pH 7.347 L 7.350-7.450 Arterial Blood Partial Pressure CO2 24.5 L 35.0-48.0 mmHg Arterial Blood Partial Pressure O2 62.1 L 83.0-108.0 mmHg Arterial Blood HCO3 13.1 L 21.0-28.0 mmol/L Arterial Blood Oxygen Saturation 86.7 L 94.0-98.0 % Arterial Blood Base Excess -11.0 L -2.0-3.0 mmol/L Arterial Blood Oxyhemoglobin 85.7 L 94.0-98.0 % Arterial Blood Carboxyhemoglobin 0.8 0.5-1.5 % Arterial Blood Methemoglobin 0.3 0.0-1.5 % Manuel Test Yes Blood Gas Total Hemoglobin 9.90 L 13.5-17.5 g/dL Blood Gas Liter Flow 50.00 Blood Gas Modality High flow FiO2 % 50.0 POC Glucose 131 H 70-106 mg/dl Blood Gas Critical Value Read Back Yes Blood Gas Notified Whom Dr. orellana Blood Gas Notified Time [id number] Blood Gas Notified By Kobi phan registered representative Test 05/06/24 10:38 05/06/24 08:40 Range/Units Lactic Acid Level 4.5 *H 0.4-2.0 mmol/L White Blood Count 5.4 4.4-10.8 10^3/uL Red Blood Count 2.93 L 4.5-5.90 10^6/uL Hemoglobin 9.6 L 13.5-17.5 g/dL Hematocrit 29.6 L 41.0-53.0 % Mean Corpuscular Volume 101.1 H 80.0-100.0 fL Mean Corpuscular Hemoglobin 32.7 H 28.0-32.0 pg Mean Corpuscular Hemoglobin Concent 32.3 32.0-36.0 g/dL Red Cell Distribution Width 20.5 H 11.8-14.3 % Platelet Count 288 140-450 10^3/uL Mean Platelet Volume 10.0 6.9-10.8 fL Neutrophils (%) (Auto) 87.2 H 37.0-80.0 % Lymphocytes (%) (Auto) 5.2 L 10.0-50.0 % Monocytes (%) (Auto) 6.4 0.0-12.0 % Eosinophils (%) (Auto) 0.2 0.0-7.0 % Basophils (%) (Auto) 1.0 0.0-2.0 % Neutrophils # (Auto) 4.7 1.6-8.6 10 ^3/uL Lymphocytes # (Auto) 0.3 L 0.4-5.4 10 ^3/uL Monocytes # (Auto) 0.3 0-1.3 10 ^3/uL Eosinophils # (Auto) 0 0-0.8 10 ^3/uL Basophils # (Auto) 0.1 0-0.2 10 ^3/uL Nucleated Red Blood Cells 0.2 % Prothrombin Time 24.3 H 9.3-11.8 sec Prothrombin Time INR 2.51 H 0.9-1.15 Activated Partial Thromboplast Time 38.2 H 24.5-34.5 SEC Magnesium Level 3.0 H 1.6-2.6 mg/dL Total Bilirubin 5.3 H 0.2-1.0 mg/dL Aspartate Amino Transferase (AST) 151 H 13-40 U/L Alanine Aminotransferase (ALT) 38 7-40 U/L Alkaline Phosphatase 767 H 46-116 U/L B-Type Natriuretic Peptide 981.10 0-100 pg/mL Total Protein 7.1 5.7-8.2 g/dL Albumin 3.2 3.2-4.8 g/dL Assessment Septic shock Acute respiratory failure Acute on chronic decompensated HFrEF, NYHA class III NSTEMI, likely type 2 secondary to above [id number] tricuspid regurgitation Moderate pulmonic regurgitation Paroxysmal atrial fibrillation, Stage 3A (on Xarelto and amiodarone) Hypertension Dyslipidemia History of left lower extremity DVT Hypothermia Hyperkalemia Chronic kidney disease Transaminitis BPH Plan/Recommendation We will continue following plan/recommendations (Dr. Ceron): * Transthoracic echocardiogram reveals EF 25-30% with RV failure noted * Unable to initiate guideline directed medical therapy for CHF since patient is on vasopressors and has poor renal function * Strict intake and output, daily weights, maintain fluid restriction * [id number] VASc score: 5 points, HAS-BLED: 4 points * Hold anticoagulation at this time given anemia/elevated INR * Hold beta-albertina given bradycardia * Hold antiarrhythmic agent given bradycardia, transaminitis, and prolonged QTc interval * Initiate SCDs * Close Cardiac surveillance * Avoid medications that prolong QTc interval as this could potentially put the patient into torsades de pointes * Nephrology consult and recommendations Patient seen and examined at bedside with . The patient presents with multiple issues including rectal bleed and nosebleeds, bradycardia, and hypotension. Patient noted to be hyperkalemic, hypothermic, and hypoxic which can be contributing to the bradycardia. We will recommend to treat reversible causes of bradycardia. Elevated troponin level suspected to be NSTEMI type 2 at this time probably due to demand ischemia. We will trend troponin level and repeat twelve lead electrocardiogram. Continue with close cardiac surveillance. Notify cardiology team immediately for any ECG changes. Thank you for all owing us to care for this patient. Please call with any questions or concerns. Critical care time spent: 43 minutes This medical document was created using an electronic medical record system with voice recognition software and computerized dictation system. Although this document has been carefully reviewed, there might still be some phonetic and typographical errors. Occasional wrong-word or ``sound-alike substitutions may have occurred due to the inherent limitations of voice recognition software. These areas are purely typographical due to imperfections of the software programs and do not reflect any compromise in the patient's medical care. Please read the chart carefully and recognize, using context, where these substitutions have occurred. Plan discussed with: Patient, Other (Bedside RN) NYHA Physical activity limitations: Class3(Marked) ordinary (activity causes symtoms) Date of Service: May 06, 2024 Billing Provider: CARRIE POOL Cardiology Common Codes: 78643-ESTQBAL INP/OBS CARE (High) Cardiology Consultation Codes: [id number] CONSULT <45MIN BEATRIZ CERON MD 05/08/24 0825: Family History: Patient reports no known family medical history. Allergies: Coded Allergies: Ibuprofen (Verified Allergy, Unknown, 05/06/24) Penicillins (Verified Allergy, Unknown, 05/06/24) Plan/Recommendation PATIENT SEEN WITH ORDER BUILDER LOADER TREAT K POOJA JOVEL ,SEE IF RENAL FUNCTION BETTER NO DOAC 2/2 TO BLEEDING HIGHER CVA RISK CARRIE POOL May 06, 2024 16:37 BEATRIZ CERON MD May 08, 2024 08:25
[2024-05-06] MEDS: LIDOCAINE 2% JELLY 11ml (GLYDO) UR ONE (16:45)
[2024-05-06 16:49] LABS: LDL Cholesterol 46 mg/dL (< 100); Triglycerides 94 mg/dL (< 150)
[2024-05-06 16:51] LABS: Cholesterol 88 mg/dL (< 200)
[2024-05-06 17:00] LABS: HDL Cholesterol 13 mg/dL (40-59)
--- NOTE | 2024-05-06 17:06 | POSTOP ---
Post-Operative Note Post-Operative Note Preop Diagnosis URINARY RETENTION,COMPLEX CATH Postop Diagnosis: same Operation performed complex cath Specimen no Anesthesia: Local Anesthesiologist: no Surgeon Yanna Allen [facility] cath 16 Date 05/06/24 Time 17:03 YANNA ALLEN MD May 06, 2024 17:06
[2024-05-06 17:24] LABS: Base Excess -8.1 mmol/L (-2.0-3.0)
[2024-05-06] MEDS: LINEZOLID 600MG/300ML 300 ML IV SCH (17:32)
--- NOTE | 2024-05-06 18:23 | ECG ---
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
--- NOTE | 2024-05-06 18:24 | ECG ---
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
[2024-05-06] MEDS: SODIUM BICARB 50mEq/50ml Vial 150 ML in D5W 5% 1,000 ML IV ONE (20:05)
[2024-05-06] MEDS: BUMETANIDE INJECTION 25 MG in GIVE UN-DILUTED 0 ML IV SCH (20:06)
[2024-05-06] MEDS: MEROPENEM 500MG IVPB 50 ML IV SCH (22:00)
--- NOTE | 2024-05-06 22:17 | DVHINCON2 ---
Date of service: May 06, 2024 Referring Physician Anya Camarena MD Reason for Consultation Acute hypoxic respiratory failure and COPD exacerbation History of Present Illness A 68-year-old man with past medical history including CHF, cardiomyopathy, CKD, atrial fibrillation, CVA, diabetes, hypertension and BPH who presents to ED today from [facility] for low blood pressure, bradycardia and bleeding. The patient has been there since about 2 weeks. apparently after discharge from another facility after he had sepsis and respiratory failure and was treated for atrial fibrillation. He is on Xarelto. It is reported that he has a nosebleed and rectal bleeding. Patient was hypotensive in ED and dopamine drip was started. Patient c/o abdominal tightness, has peripheral edema in his legs and arms, more pronounced on the left arm Patient was admitted for further care and pulmonary consultation is requested for evaluation and management of acute hypoxic respiratory failure and COPD exacerbation. Review of Systems: 14-point review of systems negative unless otherwise noted above. Past Medical History: Atrial fibrillation, CHF, cardiomyopathy, hypertension, hyperlipidemia, diabetes, CVA, GERD, gout, chronic renal insufficiency, benign prostatic enlargement. Past Surgical History: None Medications: Reviewed. Allergies: Ibuprofen Penicillins Family History: No family history of premature CAD. No family history of lung disorders. Social History: Nonsmoker. No alcohol or illicit drug use. Family History: Patient reports no known family medical history. Allergies: Coded Allergies: Ibuprofen (Verified Allergy, Unknown, 05/06/24) Penicillins (Verified Allergy, Unknown, 05/06/24) Current Medications Current Medications Medications (Trade) Dose Ordered Sig/Eloy Route PRN Reason Start Time Stop Time Status Last Admin Nitroglycerin (Ntrostat Sublingual) 0.4 mg Q5MINP PRN SL FOR CHEST PAIN 05/06/24 10:45 Morphine Sulfate 2 mg Q30M PRN IV FOR CHEST PAIN 05/06/24 10:45 Pantoprazole Sodium (Protonix) 40 mg BID IV 05/06/24 22:00 Ondansetron HCl (Zofran) 4 mg Q4HPRN PRN IV NAUSEA / VOMITING 05/06/24 11:00 05/06/24 15:41 Aztreonam 0.5 gm/ Dextrose 50 ml @ 100 mls/hr Q8HR IV 05/06/24 14:00 05/06/24 11:01 DC Linezolid 300 ml @ 300 mls/hr Q12HR IV 05/06/24 12:30 05/06/24 13:58 DC Meropenem 50 ml @ 17 mls/hr Q12HR IV 05/06/24 22:00 Diagnostic Test (Pha) (Accu-Chek Comfort Curve T) 1 strip Q6HR 05/06/24 12:00 05/06/24 17:35 Insulin Human Regular (InsuLIN R) Q6HR SC 05/06/24 12:00 Dextrose 50 ml UD PRN IV Blood Sugar LESS THAN 60 05/06/24 11:15 Norepinephrine Bitartrate 32 mg/ Sodium Chloride 250 ml @ 0.938 mls/ hr Q24H IV 05/06/24 13:00 Linezolid 300 ml @ 300 mls/hr Q12H IV 05/06/24 17:00 05/06/24 17:32 Methylprednisolone Sodium Succinate (Solu Medrol) 40 mg BID IV 05/06/24 22:00 Lidocaine HCl (Lidocaine HCl Jelly) 5 ml ONCE STAT TOP 05/06/24 16:30 05/06/24 16:34 DC Lidocaine HCl (Lidocaine HCl Jelly) 5 ml ONCE STAT TOP 05/06/24 16:41 05/06/24 16:49 DC Bumetanide 25 mg/ Miscellaneous 100 ml @ 4 mls/hr Q24H IV 05/06/24 17:15 05/06/24 20:06 Vital Signs Vital Signs Date Time Temp Pulse Resp B/P (MAP) Pulse Ox O2 Delivery O2 Flow Rate FiO2 05/06/24 20:06 113/65 05/06/24 18:31 88 12 96 50.0 55 05/06/24 18:00 Hi-Flow Heated NC+ 05/06/24 17:45 97.5 97.5 Physical Exam Gen.: Patient lying in bed in no apparent distress. On supplemental oxygen. Head: Normocephalic, atraumatic. Eyes: EOMI/PERRLA. Ears: Normal hearing. Normal anatomy. Neck/trachea: Trachea midline, supple. Nose: Normal external anatomy. Mouth: Moist mucous membranes. Chest: Decreased air entry bilaterally. No wheezing or rhonchi. Cardiovascular: Positive S1, positive S2. Regular rate and rhythm. Abdomen: Positive bowel sounds in all 4 quadrants. Soft, non-tender, non- distended. : Deferred. Rectal: Deferred. Skin: Warm, dry. Intact. Extremities: 2+ radial pulses bilaterally. No lower extremity edema. Neuro: Awake, alert, oriented x3. No gross motor or sensory deficits. Cranial nerves II through XII intact. Gait not assessed. Labs/Diagnostic Data Labs Test 05/06/24 19:34 05/06/24 17:22 05/06/24 17:07 05/06/24 14:10 Range/Units Troponin I High Sensitivity 671 *H </=54 ng/L POC Glucose 131 H 70-106 mg/dl Blood Gas Specimen Type Arterial Blood Gas Sample Site Left radial Blood Gas Patient Temperature 37.0 Arterial Blood Date Drawn [id number] Arterial Blood pH 7.374 7.350-7.450 Arterial Blood Partial Pressure CO2 28.0 L 35.0-48.0 mmHg Arterial Blood Partial Pressure O2 68.1 L 83.0-108.0 mmHg Arterial Blood HCO3 16.0 L 21.0-28.0 mmol/L Arterial Blood Oxygen Saturation 90.0 L 94.0-98.0 % Arterial Blood Base Excess -8.1 L -2.0-3.0 mmol/L Arterial Blood Oxyhemoglobin 89.2 L 94.0-98.0 % Arterial Blood Carboxyhemoglobin 0.6 0.5-1.5 % Arterial Blood Methemoglobin 0.3 0.0-1.5 % Manuel Test Modified Blood Gas Total Hemoglobin 9.60 L 13.5-17.5 g/dL Blood Gas Liter Flow 50.00 Blood Gas Modality High flow FiO2 % 55.0 Sodium Level 137 136-145 mmol/L Potassium Level 5.6 *H 3.5-5.1 mmol/L Chloride Level 103 98-107 mmol/L Carbon Dioxide Level 14 L 20-31 mmol/L Anion Gap 20 H 5-15 Blood Urea Nitrogen 124 *H 9-23 mg/dL Creatinine 5.79 H 0.700-1.30 mg/dL Glomerular Filtration Rate Calc 10 >90 mL/min BUN/Creatinine Ratio 21.4 H 10.0-20.0 Serum Glucose 125 H 74-106 mg/dL Calcium Level 9.0 8.7-10.4 mg/dL Test 05/06/24 12:08 05/06/24 10:38 05/06/24 08:40 Range/Units Blood Gas Critical Value Read Back Yes Blood Gas Notified Whom Dr. camarena Blood Gas Notified Time [id number] Blood Gas Notified By Kobi phan rrt Lactic Acid Level 4.5 *H 0.4-2.0 mmol/L White Blood Count 5.4 4.4-10.8 10^3/uL Red Blood Count 2.93 L 4.5-5.90 10^6/uL Hemoglobin 9.6 L 13.5-17.5 g/dL Hematocrit 29.6 L 41.0-53.0 % Mean Corpuscular Volume 101.1 H 80.0-100.0 fL Mean Corpuscular Hemoglobin 32.7 H 28.0-32.0 pg Mean Corpuscular Hemoglobin Concent 32.3 32.0-36.0 g/dL Red Cell Distribution Width 20.5 H 11.8-14.3 % Platelet Count 288 140-450 10^3/uL Mean Platelet Volume 10.0 6.9-10.8 fL Neutrophils (%) (Auto) 87.2 H 37.0-80.0 % Lymphocytes (%) (Auto) 5.2 L 10.0-50.0 % Monocytes (%) (Auto) 6.4 0.0-12.0 % Eosinophils (%) (Auto) 0.2 0.0-7.0 % Basophils (%) (Auto) 1.0 0.0-2.0 % Neutrophils # (Auto) 4.7 1.6-8.6 10 ^3/uL Lymphocytes # (Auto) 0.3 L 0.4-5.4 10 ^3/uL Monocytes # (Auto) 0.3 0-1.3 10 ^3/uL Eosinophils # (Auto) 0 0-0.8 10 ^3/uL Basophils # (Auto) 0.1 0-0.2 10 ^3/uL Nucleated Red Blood Cells 0.2 % Prothrombin Time 24.3 H 9.3-11.8 sec Prothrombin Time INR 2.51 H 0.9-1.15 Activated Partial Thromboplast Time 38.2 H 24.5-34.5 SEC Hemoglobin A1c 5.7 <5.7 % A1C Magnesium Level 3.0 H 1.6-2.6 mg/dL Total Bilirubin 5.3 H 0.2-1.0 mg/dL Aspartate Amino Transferase (AST) 151 H 13-40 U/L Alanine Aminotransferase (ALT) 38 7-40 U/L Alkaline Phosphatase 767 H 46-116 U/L B-Type Natriuretic Peptide 981.10 0-100 pg/mL Total Protein 7.1 5.7-8.2 g/dL Albumin 3.2 3.2-4.8 g/dL Triglycerides Level 94 < 150 mg/dL Cholesterol Level 88 < 200 mg/dL LDL Cholesterol 46 < 100 mg/dL HDL Cholesterol 13 L 40-59 mg/dL Thyroid Stimulating Hormone (TSH) 8.04 H 0.55-4.78 uIU/mL Assessment Impression: Acute hypoxic respiratory failure Dependence on supplemental oxygen Acute COPD exacerbation CHF exacerbation Metabolic acidosis Obesity BMI 39.4 Plan: On high flow supplemental oxygen at 50 LPM, FiO2 55% Titrate to keep O2 sats above 92%. Taper O2 as tolerated. ABG reviewed, notable for acidemia c/w metabolic acidosis Chest x-ray reviewed, notable for cardiomegaly with pulmonary congestion and edema. Superimposed pneumonia cannot be excluded. On pressors for hemodynamic support Dopamine 5 mcg/min Titrate to keep MAP above 65 mmHg/SBP above 90 mmHg. Continue bronchodilators/Pulmicort Continue antibiotics Continue steroids - Solu-Medrol IV 40 mg q.12 hours Incentive spirometry Diurese as tolerated w/ Bumex Monitor renal function. Monitor electrolytes. Supplement as necessary. Monitor ins and outs. Nephrology recs appreciated. DVT prophylaxis. Prognosis: Poor given patient's multiple co-morbidities. Condition: Critical Rest of plan per hospitalist and other consultants. A total of 35 minutes of critical care time was spent reviewing the patient record, examining the patient, making a diagnostic and therapeutic plan, discussing this plan with the medical personnel, following up on diagnostic studies and following the patient for clinical stability excluding any and all procedures. At least 50% of this time was spent in direct, [id number] contact. Thank you, Dr. Camarena, for allowing me to participate in this patient's care. Further recommendations will depend on the patient's clinical course. Please do not hesitate to contact me if you have any questions or concerns. This medical document was created using an electronic medical record system with [employer] dictation system. Although these documentations are being carefully reviewed, there may still be some phonetic and typographical changes. The errors are purely typographical, due to imperfection on the software program, and do not reflect any compromise in the patient's medical care. Plan discussed with: Patient, Other (KIM Winchester/Dr. Camarena) WENCESLAO ESCOBAR MD May 06, 2024 22:17
[2024-05-06] MEDS: PANTOPRAZOLE 40 MG/10 ML VIAL INJ IV SCH (22:40)
[2024-05-06] MEDS: methylPREDNISolone SOD SUCC 40 MG/ML VL IV SCH (22:40)
[2024-05-06] MEDS: MEROPENEM 1GM IVPB 50 ML IV ONE (22:46)
[2024-05-07] VITALS (99 sets, daily range): BP systolic 92–129; BP diastolic 8–71; PULSE 76–115; RESP 9–18; TEMP 96.3–97.6; O2SAT 90–100
[2024-05-07 05:24] LABS: Urine Bacteria None Seen /hpf (None Seen)
[2024-05-07 05:34] LABS: Urine Blood 3+ /uL (Negative); Urine Clarity Ex.Turbid (Clear); Urine Protein, UAD 3+ (Negative); Urine Specific Gravity 1.018 (1.001-1.035); Urine Squamous Epithelial Cell None Seen /hpf (<5); Urine Urobilinogen Normal (Negative); Urine WBC 197 /HPF (0-3); Urine pH 6.5 (5.0-9.0)
[2024-05-07 05:36] LABS: Urine Color RED (Yellow)
[2024-05-07 05:41] LABS: Basophils # (auto) 0 10 ^3/uL (0-0.2); Eosinophils # (auto) 0 10 ^3/uL (0-0.8); Hematocrit 27.4 % (41.0-53.0); Hemoglobin 9.1 g/dL (13.5-17.5); Lymphocytes # (auto) 0.1 10 ^3/uL (0.4-5.4); Lymphocytes % (auto) 1.8 % (10.0-50.0); Mean Corpuscular Hemoglobin 32.2 pg (28.0-32.0); Mean Corpuscular Hgb Conc. 33.1 g/dL (32.0-36.0); Mean Corpuscular Volume 97.3 fL (80.0-100.0); Monocytes # (auto) 0.2 10 ^3/uL (0-1.3); Monocytes % (auto) 3.7 % (0.0-12.0); Neutrophils # (auto) 6.3 10 ^3/uL (1.6-8.6); Neutrophils % (auto) 94.5 % (37.0-80.0); Nucleated Red Blood Cells % 0.2 %; Platelet Count (auto) 284 10^3/uL (140-450); Red Blood Cells 2.81 10^6/uL (4.5-5.90); Red Cell Distribution Width 19.5 % (11.8-14.3); White Blood Cell 6.6 10^3/uL (4.4-10.8)
[2024-05-07 06:20] LABS: Alanine Aminotransferase 37 U/L (7-40); Anion Gap 18 (5-15); BUN/Creatinine Ratio 22.4 (10.0-20.0); Calcium 8.8 mg/dL (8.7-10.4); Chloride 101 mmol/L (98-107); Sodium 138 mmol/L (136-145); Total Protein 6.8 g/dL (5.7-8.2)
[2024-05-07 06:26] LABS: INR 2.53 (0.9-1.15); Partial Thromboplastin Time 34.5 SEC (24.5-34.5); Prothrombin Time 24.5 sec (9.3-11.8)
[2024-05-07 06:44] LABS: Alkaline Phosphatase 648 U/L (46-116); Aspartate Aminotransferase 169 U/L (13-40); Bilirubin, Total 5.6 mg/dL (0.2-1.0); Blood Urea Nitrogen 133 mg/dL (9-23); Carbon Dioxide 19 mmol/L (20-31); Glucose 193 mg/dL (74-106); Potassium 5.9 mmol/L (3.5-5.1)
[2024-05-07] MEDS ORDERED: SODIUM BICARB 50mEq/50ml Vial 150 ML in D5W 5% 1,000 ML IV ONE (09:00)
[2024-05-07] MEDS: SODIUM BICARB 8.4% 50Meq/50ml SYR INJ IV ONE (09:00)
[2024-05-07] MEDS: SODIUM ZIRCONIUM CYCL 10 GM PAK PO ONE (09:00)
[2024-05-07] MEDS: ALBUTEROL SULF 2.5 MG/0.5ML(0.5%) NEB SOLN NEB ONE (09:20)
--- NOTE | 2024-05-07 09:29 | DVHPN2 ---
Progress Note Date Seen: May 07, 2024 Medical Necessity Reason Pt with a Central, PICC or Fol: No Subjective Patient reports: Feels better Other Systems: starkey placed poor uop Objective vital signs Vital Sign Date Time Temp Pulse Resp B/P (MAP) Pulse Ox O2 Delivery O2 Flow Rate FiO2 05/07/24 09:00 88 12 105/68 (80) 96 05/07/24 08:00 96.4 96.4 05/07/24 06:25 30.0 45 05/06/24 20:00 Hi-Flow Heated NC+ Total Intake and Output 05/06/24 05/06/24 05/07/24 15:00 23:00 07:00 Intake Total 102.5 ml 703.25 ml 995.063 ml Output Total 100 ml 150 ml Balance 102.5 ml 603.25 ml 845.063 ml medications Current Medications Medications Dose Ordered Sig/Eloy Route Start Time Stop Time Status Last Admin Dose Admin Nitroglycerin 0.4 mg Q5MINP PRN SL 05/06/24 10:45 Morphine Sulfate 2 mg Q30M PRN IV 05/06/24 10:45 Pantoprazole Sodium 40 mg BID IV 05/06/24 22:00 05/06/24 22:40 40 MG Ondansetron HCl 4 mg Q4HPRN PRN IV 05/06/24 11:00 05/06/24 15:41 4 MG Meropenem 50 ml @ 17 mls/hr Q12HR IV 05/06/24 22:00 05/06/24 22:00 17 MLS/HR Diagnostic Test (Pha) 1 strip Q6HR 05/06/24 12:00 05/07/24 05:54 1 STRIP Insulin Human Regular Q6HR SC 05/06/24 12:00 05/07/24 05:54 3 UNITS Dextrose 50 ml UD PRN IV 05/06/24 11:15 Norepinephrine Bitartrate 32 mg/ Sodium Chloride 250 ml @ 0.938 mls/ hr Q24H IV 05/06/24 13:00 05/06/24 23:08 0.938 MLS/HR Linezolid 300 ml @ 300 mls/hr Q12H IV 05/06/24 17:00 05/07/24 05:13 300 MLS/HR Methylprednisolone Sodium Succinate 40 mg BID IV 05/06/24 22:00 05/06/24 22:40 40 MG Bumetanide 25 mg/ Miscellaneous 100 ml @ 4 mls/hr Q24H IV 05/06/24 17:15 05/06/24 20:06 4 MLS/HR Zirconium Oxide 10 gm TID PO 05/07/24 14:00 05/09/24 06:01 Examination: GENERAL:Abnormal, HEENT:Abnormal, LUNGS:Abnormal, CVS:Abnormal, ABDOMEN:Abnormal laboratory and microbiology Laboratory Tests 05/07/24 05:20 Test 05/07/24 05:20 Range/Units Serum Glucose 193 H 74-106 mg/dL Problem List/Assessment/Plan Problem List/Assessment/Plan afib hypotension obesity AMS ALCIDES on ckd hematuria hold doac for now HR well controlled 90s, off dopamine cont levophed pt needs HD< coagulopathy, give IV vitamin k for possible line elevated cva risk Plan discussed with: Patient Date of Service: May 07, 2024 Billing Provider: BEATRIZ CERON MD Common Visit Codes: NOT BILLABLE BEATRIZ CERON MD May 07, 2024 09:29
[2024-05-07] MEDS: phytonadione 5 MG in SODIUM CHL 0.9% 50 ML IV ONE (09:30)
[2024-05-07] MEDS: InsuLIN REG 1unit/0.01ml Soln (100units/ml) IV ONE (09:51)
[2024-05-07] MEDS: DEXTROSE (50%) 50ML SYRG IV ONE (09:52)
[2024-05-07] MEDS: CALCIUM GLUC 1,000mg/50ml-NS 50 ML IV ONE (09:52)
[2024-05-07] MEDS: SODIUM BICARB 8.4% 50Meq/50ml SYR Vial IV ONE ×2 (09:52→11:15)
--- NOTE | 2024-05-07 11:20 | DVHPN2 ---
Subjective Alert K+ is 5.9 Low urine output Cr is worse Changes from previous H/P or p: Changes Gastrointestinal: Abdominal Pain Objective Vitals Vital Signs Date Time Temp Pulse Resp B/P (MAP) Pulse Ox O2 Delivery O2 Flow Rate FiO2 05/07/24 09:30 94 18 99 05/07/24 09:20 Oxymizer 5.0 05/07/24 09:20 N/A 05/07/24 09:00 105/68 (80) 05/07/24 08:00 96.4 96.4 Intake/Output Intake and Output 05/07/24 07:00 Intake Total 1800.813 ml Output Total 250 ml Balance 1550.813 ml Intake Oral 0 ml IV Total 1800.813 ml Output Urine Total 250 ml General Appearance: Alert Lungs: Other (B Rhonchi) Extremities: Other (2+ edema diffuse) Medications Current Medications Medications Dose Ordered Sig/Eloy Route Start Time Stop Time Status Last Admin Dose Admin Nitroglycerin 0.4 mg Q5MINP PRN SL 05/06/24 10:45 Morphine Sulfate 2 mg Q30M PRN IV 05/06/24 10:45 Pantoprazole Sodium 40 mg BID IV 05/06/24 22:00 05/07/24 10:13 40 MG Ondansetron HCl 4 mg Q4HPRN PRN IV 05/06/24 11:00 05/06/24 15:41 4 MG Meropenem 50 ml @ 17 mls/hr Q12HR IV 05/06/24 22:00 05/06/24 22:00 17 MLS/HR Diagnostic Test (Pha) 1 strip Q6HR 05/06/24 12:00 05/07/24 05:54 1 STRIP Insulin Human Regular Q6HR SC 05/06/24 12:00 05/07/24 05:54 3 UNITS Dextrose 50 ml UD PRN IV 05/06/24 11:15 Norepinephrine Bitartrate 32 mg/ Sodium Chloride 250 ml @ 0.938 mls/ hr Q24H IV 05/06/24 13:00 05/06/24 23:08 0.938 MLS/HR Linezolid 300 ml @ 300 mls/hr Q12H IV 05/06/24 17:00 05/07/24 05:13 300 MLS/HR Methylprednisolone Sodium Succinate 40 mg BID IV 05/06/24 22:00 05/07/24 10:13 40 MG Bumetanide 25 mg/ Miscellaneous 100 ml @ 4 mls/hr Q24H IV 05/06/24 17:15 05/06/24 20:06 4 MLS/HR Zirconium Oxide 10 gm TID PO 05/07/24 14:00 05/09/24 06:01 Laboratory Results Laboratory Tests 05/07/24 05:20 Chemistry Test 05/06/24 14:10 05/07/24 05:20 Calcium Level 9.0 mg/dL (8.7-10.4) 8.8 mg/dL (8.7-10.4) Albumin 3.0 g/dL (3.2-4.8) L Magnesium Level 3.0 mg/dL (1.6-2.6) H Total Protein 6.8 g/dL (5.7-8.2) Coagulation Test 05/07/24 05:20 Prothrombin Time 24.5 sec (9.3-11.8) H Prothrombin Time INR 2.53 (0.9-1.15) H Activated Partial Thromboplast Time 34.5 SEC (24.5-34.5) LFT Test 05/07/24 05:20 Alanine Aminotransferase (ALT) 37 U/L (7-40) Alkaline Phosphatase 648 U/L (46-116) H Aspartate Amino Transferase (AST) 169 U/L (13-40) H Total Bilirubin 5.6 mg/dL (0.2-1.0) H Urinalysis Test 05/07/24 00:00 Urine Color Red (Yellow) Urine Clarity Ex.turbid (Clear) Urine pH 6.5 (5.0-9.0) Urine Specific [place] 1.018 (1.001-1.035) Urine Protein 3+ (Negative) H Urine Ketones Negative (Negative) Urine Blood 3+ /uL (Negative) H Urine Nitrite Negative (Negative) Urine Bilirubin 1+ (Negative) Urine Urobilinogen Normal mg/dL (Negative) Urine Leukocyte Esterase Trace /uL (Negative) Urine RBC 4356 /hpf (0 - 3) Urine Microscopic WBC 197 /HPF (0-3) H Urine Squamous Epithelial Cells None seen /hpf (<5) Urine Bacteria None seen /hpf (None Seen) Urine Glucose Trace mg/dL (Normal) Blood Gas Results Test 05/06/24 12:08 05/06/24 13:36 05/06/24 17:07 Arterial Blood pH 7.295 (7.350-7.450) 7.347 (7.350-7.450) 7.374 (7.350-7.450) FiO2 % 60.0 50.0 55.0 Assessment/Plan Assessment/Plan Severe sepsis with septic shock Bradycardia Possible GI bleed Acute on chronic kidney disease Acute heart failure, possibly systolic Pulmonary edema Hyperkalemia Anemia, macrocytic History of chronic kidney disease stage 3 Elevated liver function tests with a total bilirubin of 5.3 Lactic acidosis NSTEMI Urinary retention History of heart failure and cardiomyopathy History of CVA Atrial fibrillation on Xarelto Mixed hyperlipidemia Type 2 diabetes BPH Recent sepsis and respiratory failure History of gout GERD Plan Admit to ICU Dopamine drip Oxygen as needed Calcium gluconate Lokelma Keep NPO now Nephrology consult Cardiology consult Echocardiogram Urology consult because a Brown catheter could not be inserted Possible urinary retention Broad-spectrum antibiotics meropenem and Zyvox 05/07/24: Hyperkalemia: Protocol Worsening CKD: HD per nephrology Dialysis catheter planned Transfuse FFP Vit K IV antibiotics: Meropenem & Zyvox IV steroids Vasopressors prn EF 25-30% Hematuria Urinary retention Coagulopathy due to sepsis? Plan discussed with: Patient My Orders Orders - RONALD SUÁREZ MD Procedure Category Date Status Time Abg W/ Co-Ox RT 05/06/24 Logged 12:02 Mrsa Screen NICHOLAS 05/06/24 In Process 12:18 Sodium Chl 0.9% PHA 05/06/24 In Process (Ns... 13:00 *Consult CONS 05/06/24 Transmitted / 13:00 Oxygen By High-Flow RT 05/06/24 Transmitted 13:00 Abg W/ Co-Ox RT 05/06/24 Logged 13:30 Linezolid 600mg/300ml PHA 05/06/24 In Process (Zyvox) 17:00 Electrocardigram EKG 05/06/24 Logged 15:26 Urine Bacterial NICHOLAS 05/07/24 In Process Culture 01:50 Date of Service: May 07, 2024 Billing Provider: RONALD SUÁREZ MD Common Visit Codes: NOT BILLABLE RONALD SUÁREZ MD May 07, 2024 11:20
--- NOTE | 2024-05-07 11:25 | ECG ---
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
[2024-05-07 13:49] LABS: Hemoglobin 8.7 g/dL (13.5-17.5)
[2024-05-07 13:58] LABS: Chloride 103 mmol/L (98-107)
[2024-05-07 13:59] LABS: Anion Gap 16 (5-15); Carbon Dioxide 21 mmol/L (20-31); Sodium 140 mmol/L (136-145)
[2024-05-07 14:00] LABS: Calcium 8.2 mg/dL (8.7-10.4); Potassium 5.4 mmol/L (3.5-5.1)
[2024-05-07 14:13] LABS: BUN/Creatinine Ratio 23.1 (10.0-20.0)
[2024-05-07 14:17] LABS: Glucose 202 mg/dL (74-106)
[2024-05-07 14:18] LABS: Blood Urea Nitrogen 144 mg/dL (9-23)
[2024-05-07] MEDS: SODIUM ZIRCONIUM CYCL 10 GM PAK PO SCH (14:28)
--- NOTE | 2024-05-07 14:42 | DVHINCON2 ---
Date of service: May 07, 2024 Referring Physician Reason for Consultation lucy History of Present Illness 68 years old male with past medical history of congestive heart failure, cardiomyopathy, Chronic kidney disease, diabetes, AFib, hypertension, prostatomegaly, gout, presented with a chief complaints from no blood pressure, bradycardia and rectal bleeding apparently patient taking anticoagulants for AFib nephrology consulted for Acute kidney injury and hyperkalemia on admission patient found to have difficulty in placing Brown catheter and urologist has placed it Patient seen and examined he is poor historian however answers to some questions Past Medical History As per HPI Past Surgical History Unknown exactly Allergies: Coded Allergies: Ibuprofen (Verified Allergy, Unknown, 05/06/24) Penicillins (Verified Allergy, Unknown, 05/06/24) Current Medications Current Medications Medications (Trade) Dose Ordered Sig/Eloy Route PRN Reason Start Time Stop Time Status Last Admin Pantoprazole Sodium (Protonix) 40 mg BID IV 05/06/24 22:00 05/07/24 10:13 Meropenem 50 ml @ 17 mls/hr Q12HR IV 05/06/24 22:00 05/07/24 10:00 Linezolid 300 ml @ 300 mls/hr Q12H IV 05/06/24 17:00 05/07/24 05:13 Methylprednisolone Sodium Succinate (Solu Medrol) 40 mg BID IV 05/06/24 22:00 05/07/24 10:13 Lidocaine HCl (Lidocaine HCl Jelly) 5 ml ONCE STAT TOP 05/06/24 16:30 05/06/24 16:34 DC Lidocaine HCl (Lidocaine HCl Jelly) 5 ml ONCE STAT TOP 05/06/24 16:41 05/06/24 16:49 DC Bumetanide 25 mg/ Miscellaneous 100 ml @ 4 mls/hr Q24H IV 05/06/24 17:15 05/06/24 20:06 Zirconium Oxide (Lokelma) 10 gm TID PO 05/07/24 14:00 05/09/24 06:01 05/07/24 14:28 Family History: Patient reports no known family medical history. Social History Unknown exactly Review of Systems Unknown 12 point ROS patient poor historian H&P Exam Vital Signs/I&O Vital Sign Date Time Temp Pulse Resp B/P (MAP) Pulse Ox O2 Delivery O2 Flow Rate FiO2 05/07/24 14:30 78 12 100/56 (71) 96 05/07/24 13:30 97.0 97.0 05/07/24 10:00 Oxymizer 6.0 05/07/24 09:20 N/A Intake and Output 05/06/24 05/07/24 19:00 07:00 Intake Total 421.25 ml 1379.563 ml Output Total 100 ml 150 ml Balance 321.25 ml 1229.563 ml Intake Oral 0 ml IV Total 421.25 ml 1379.563 ml Output Urine Total 100 ml 150 ml Physical Exam General-appears lethargic HEENT-normocephalic, positive pallor Respiratory-fair air entry bilateral, rales Bzhjxfnxmpvzry-V6-V4 heard, Abdominal- nontender, nondistended Musculoskeletal-4+ pedal edema, Genitourinary-deferred Neuro-awake alert Psychiatric-not agitated, cooperative, Labs/Diagnostic Data Labs/Diagnostic Data Laboratory Tests Test 05/07/24 13:30 05/07/24 11:43 05/07/24 05:28 05/07/24 05:20 Range/Units Hemoglobin 8.7 L 9.1 L 13.5-17.5 g/dL Hematocrit 27.0 L 27.4 L 41.0-53.0 % Sodium Level 140 138 136-145 mmol/L Potassium Level 5.4 H 5.9 *H 3.5-5.1 mmol/L Chloride Level 103 101 98-107 mmol/L Carbon Dioxide Level 21 19 L 20-31 mmol/L Anion Gap 16 H 18 H 5-15 Blood Urea Nitrogen 144 #*H 133 *H 9-23 mg/dL Creatinine 6.23 H 5.94 H 0.700-1.30 mg/dL Glomerular Filtration Rate Calc 9 10 >90 mL/min BUN/Creatinine Ratio 23.1 H 22.4 H 10.0-20.0 Serum Glucose 202 H 193 H 74-106 mg/dL Calcium Level 8.2 L 8.8 8.7-10.4 mg/dL POC Glucose 214 H 180 H 70-106 mg/dl White Blood Count 6.6 4.4-10.8 10^3/uL Red Blood Count 2.81 L 4.5-5.90 10^6/uL Mean Corpuscular Volume 97.3 80.0-100.0 fL Mean Corpuscular Hemoglobin 32.2 H 28.0-32.0 pg Mean Corpuscular Hemoglobin Concent 33.1 32.0-36.0 g/dL Red Cell Distribution Width 19.5 H 11.8-14.3 % Platelet Count 284 140-450 10^3/uL Mean Platelet Volume 9.4 6.9-10.8 fL Neutrophils (%) (Auto) 94.5 H 37.0-80.0 % Lymphocytes (%) (Auto) 1.8 L 10.0-50.0 % Monocytes (%) (Auto) 3.7 0.0-12.0 % Eosinophils (%) (Auto) 0.0 0.0-7.0 % Basophils (%) (Auto) 0.0 0.0-2.0 % Neutrophils # (Auto) 6.3 1.6-8.6 10 ^3/uL Lymphocytes # (Auto) 0.1 L 0.4-5.4 10 ^3/uL Monocytes # (Auto) 0.2 0-1.3 10 ^3/uL Eosinophils # (Auto) 0 0-0.8 10 ^3/uL Basophils # (Auto) 0 0-0.2 10 ^3/uL Nucleated Red Blood Cells 0.2 % Prothrombin Time 24.5 H 9.3-11.8 sec Prothrombin Time INR 2.53 H 0.9-1.15 Activated Partial Thromboplast Time 34.5 24.5-34.5 SEC Magnesium Level 3.0 H 1.6-2.6 mg/dL Total Bilirubin 5.6 H 0.2-1.0 mg/dL Aspartate Amino Transferase (AST) 169 H 13-40 U/L Alanine Aminotransferase (ALT) 37 7-40 U/L Alkaline Phosphatase 648 H 46-116 U/L Total Protein 6.8 5.7-8.2 g/dL Albumin 3.0 L 3.2-4.8 g/dL Test 05/07/24 00:38 05/07/24 00:00 05/06/24 19:34 05/06/24 18:27 Range/Units POC Glucose 160 H 70-106 mg/dl Urine Color Red Yellow Urine Clarity Ex.turbid Clear Urine pH 6.5 5.0-9.0 Urine Specific [place] 1.018 1.001-1.035 Urine Protein 3+ H Negative Urine Ketones Negative Negative Urine Blood 3+ H Negative /uL Urine Nitrite Negative Negative Urine Bilirubin 1+ Negative Urine Urobilinogen Normal Negative mg/dL Urine Leukocyte Esterase Trace Negative /uL Urine RBC 4356 0 - 3 /hpf Urine Microscopic WBC 197 H 0-3 /HPF Urine Squamous Epithelial Cells None seen <5 /hpf Urine Bacteria None seen None Seen /hpf Urine Glucose Trace Normal mg/dL Troponin I High Sensitivity 671 *H 647 *H </=54 ng/L Test 05/06/24 17:22 05/06/24 17:17 05/06/24 17:07 05/06/24 14:10 Range/Units POC Glucose 131 H 70-106 mg/dl Troponin I High Sensitivity 688 *H 744 *H </=54 ng/L Blood Gas Specimen Type Arterial Blood Gas Sample Site Left radial Blood Gas Patient Temperature 37.0 Arterial Blood Date Drawn [id number] Arterial Blood pH 7.374 7.350-7.450 Arterial Blood Partial Pressure CO2 28.0 L 35.0-48.0 mmHg Arterial Blood Partial Pressure O2 68.1 L 83.0-108.0 mmHg Arterial Blood HCO3 16.0 L 21.0-28.0 mmol/L Arterial Blood Oxygen Saturation 90.0 L 94.0-98.0 % Arterial Blood Base Excess -8.1 L -2.0-3.0 mmol/L Arterial Blood Oxyhemoglobin 89.2 L 94.0-98.0 % Arterial Blood Carboxyhemoglobin 0.6 0.5-1.5 % Arterial Blood Methemoglobin 0.3 0.0-1.5 % Manuel Test Modified Blood Gas Total Hemoglobin 9.60 L 13.5-17.5 g/dL Blood Gas Liter Flow 50.00 Blood Gas Modality High flow FiO2 % 55.0 Sodium Level 137 136-145 mmol/L Potassium Level 5.6 *H 3.5-5.1 mmol/L Chloride Level 103 98-107 mmol/L Carbon Dioxide Level 14 L 20-31 mmol/L Anion Gap 20 H 5-15 Blood Urea Nitrogen 124 *H 9-23 mg/dL Creatinine 5.79 H 0.700-1.30 mg/dL Glomerular Filtration Rate Calc 10 >90 mL/min BUN/Creatinine Ratio 21.4 H 10.0-20.0 Serum Glucose 125 H 74-106 mg/dL Calcium Level 9.0 8.7-10.4 mg/dL Test 05/06/24 13:36 05/06/24 13:07 05/06/24 12:08 05/06/24 10:56 Range/Units Blood Gas Specimen Type Arterial Arterial Blood Gas Sample Site Left radial Left radial Blood Gas Patient Temperature 37.0 37.0 Arterial Blood Date Drawn [id number] Arterial Blood pH 7.347 L 7.295 L 7.350-7.450 Arterial Blood Partial Pressure CO2 24.5 L 24.2 L 35.0-48.0 mmHg Arterial Blood Partial Pressure O2 62.1 L 61.1 L 83.0-108.0 mmHg Arterial Blood HCO3 13.1 L 11.5 L 21.0-28.0 mmol/L Arterial Blood Oxygen Saturation 86.7 L 84.4 *L 94.0-98.0 % Arterial Blood Base Excess -11.0 L -13.4 L -2.0-3.0 mmol/L Arterial Blood Oxyhemoglobin 85.7 L 83.5 L 94.0-98.0 % Arterial Blood Carboxyhemoglobin 0.8 1.0 0.5-1.5 % Arterial Blood Methemoglobin 0.3 0.1 0.0-1.5 % Manuel Test Yes Modified Blood Gas Total Hemoglobin 9.90 L 10.00 L 13.5-17.5 g/dL Blood Gas Liter Flow 50.00 10.00 Blood Gas Modality High flow Mask - simple FiO2 % 50.0 60.0 POC Glucose 131 H 119 H 70-106 mg/dl Blood Gas Critical Value Read Back Yes Blood Gas Notified Whom Dr. orellana Blood Gas Notified Time [id number] Blood Gas Notified By Kobi phan commercial housekeeper Test 05/06/24 10:38 05/06/24 09:47 05/06/24 08:40 Range/Units Lactic Acid Level 4.5 *H 4.2 *H 0.4-2.0 mmol/L Troponin I High Sensitivity 643 *H 635 *H </=54 ng/L White Blood Count 5.4 4.4-10.8 10^3/uL Red Blood Count 2.93 L 4.5-5.90 10^6/uL Hemoglobin 9.6 L 13.5-17.5 g/dL Hematocrit 29.6 L 41.0-53.0 % Mean Corpuscular Volume 101.1 H 80.0-100.0 fL Mean Corpuscular Hemoglobin 32.7 H 28.0-32.0 pg Mean Corpuscular Hemoglobin Concent 32.3 32.0-36.0 g/dL Red Cell Distribution Width 20.5 H 11.8-14.3 % Platelet Count 288 140-450 10^3/uL Mean Platelet Volume 10.0 6.9-10.8 fL Neutrophils (%) (Auto) 87.2 H 37.0-80.0 % Lymphocytes (%) (Auto) 5.2 L 10.0-50.0 % Monocytes (%) (Auto) 6.4 0.0-12.0 % Eosinophils (%) (Auto) 0.2 0.0-7.0 % Basophils (%) (Auto) 1.0 0.0-2.0 % Neutrophils # (Auto) 4.7 1.6-8.6 10 ^3/uL Lymphocytes # (Auto) 0.3 L 0.4-5.4 10 ^3/uL Monocytes # (Auto) 0.3 0-1.3 10 ^3/uL Eosinophils # (Auto) 0 0-0.8 10 ^3/uL Basophils # (Auto) 0.1 0-0.2 10 ^3/uL Nucleated Red Blood Cells 0.2 % Prothrombin Time 24.3 H 9.3-11.8 sec Prothrombin Time INR 2.51 H 0.9-1.15 Activated Partial Thromboplast Time 38.2 H 24.5-34.5 SEC Sodium Level 135 L 136-145 mmol/L Potassium Level 6.2 *H 3.5-5.1 mmol/L Chloride Level 106 98-107 mmol/L Carbon Dioxide Level 14 L 20-31 mmol/L Anion Gap 15 5-15 Blood Urea Nitrogen 123 *H 9-23 mg/dL Creatinine 5.72 H 0.700-1.30 mg/dL Glomerular Filtration Rate Calc 10 >90 mL/min BUN/Creatinine Ratio 21.5 H 10.0-20.0 Serum Glucose 118 H 74-106 mg/dL Hemoglobin A1c 5.7 <5.7 % A1C Calcium Level 8.9 8.7-10.4 mg/dL Magnesium Level 3.0 H 1.6-2.6 mg/dL Total Bilirubin 5.3 H 0.2-1.0 mg/dL Aspartate Amino Transferase (AST) 151 H 13-40 U/L Alanine Aminotransferase (ALT) 38 7-40 U/L Alkaline Phosphatase 767 H 46-116 U/L B-Type Natriuretic Peptide 981.10 0-100 pg/mL Total Protein 7.1 5.7-8.2 g/dL Albumin 3.2 3.2-4.8 g/dL Triglycerides Level 94 < 150 mg/dL Cholesterol Level 88 < 200 mg/dL LDL Cholesterol 46 < 100 mg/dL HDL Cholesterol 13 L 40-59 mg/dL Thyroid Stimulating Hormone (TSH) 8.04 H 0.55-4.78 uIU/mL Microbiology Date/Time Source Procedure Growth Status 05/06/24 12:03 Nose MRSA Screen - Final Methicillin Resistant S.aureus Complete Assessment Acute kidney injury possibly ischemic ATN in the setting of hypotension Unknown exact baseline kidney function Hyperkalemia Metabolic acidosis Anasarca significant volume overload state Proteinuria Gross hematuria after Brown Anemia Recommendations Bumex drip IV as ordered no significant response To Bumex drip Recommend renal replacement therapy pending Richi catheter placement given high INR patient is getting vitamin K and FFP Tentatively plan for dialysis on Wednesday I have informed patient about risks and benefits of dialysis--patient's sister is ANGELIQUE and consented for dialysis Medical management of hyperkalemia as ordered Check YARA panel, myeloma panel C3-C4 hepatitis HIV panels, Hb A1c Strict Is&Os Discussed with hospitalist and animal surgeon ultrasound no hydronephrosis Reviewed vital signs, lab work, imaging studies, medications, microbiology, other physician recommendations Total time spent 80 minutes More than 50% of the time spent providing direct [id number] care . Thank you for allowing me to participate in the care of your patient. Plan discussed with: Patient, Other LUISA JOHNSON MD May 07, 2024 14:42
[2024-05-07] MEDS: HEPARIN 1,000 UNITS/ml 1ML VIAL IV ONE ×2 (15:30→16:00)
[2024-05-07] MEDS ORDERED: HEPARIN SODIUM (PORCINE) 5000 UNITS/ML 1ML VIAL IV ONE (16:00)
--- NOTE | 2024-05-07 16:46 | DVHNC2 ---
Procedure - Femoral large-bore Central Line Procedure Note INDICATION: Renal failure, requiring hemodialysis PROCEDURE R[employer]EWABLE [employer] PROJECT MANAGER: Dr. Carrillo Time out: 1520 pm Date: 05/07/2024 Ultrasound Used: Y CONSENT: Consent was obtained from patient's healthcare proxy prior to the procedure. Indications, risks, and benefits were explained at length. PROCEDURE SUMMARY: A time out was performed. My hands were washed immediately prior to the procedure. I wore a surgical cap, mask with protective eyewear, sterile gown and sterile gloves throughout the procedure. The RIGHT inguinal region was prepped using chlorhexidine scrub and draped in sterile fashion using a full drape and sterile probe cover and sterile gel employed. The femoral pulse was identified. Anesthesia was achieved using 1% lidocaine. Under ultrasound guidance and palpating the femoral pulse throughout the procedure, the introducer needle was inserted medial to the femoral artery, inferior to the inguinal crease and into the femoral vein. Venous blood was withdrawn. The syringe was removed and a guidewire was advanced into the introducer needle. A small incision was made at the skin surface with a scalpel and the introducer needle was exchanged for a dilator over the guidewire. After appropriate dilation was obtained, the dilator was exchanged over the wire for a double lumen large bore central venous catheter. The wire was removed and the catheter was sutured in place at 20 cm. A sterile Biopatch was placed over the catheter at the insertion site. The patient tolerated the procedure without any hemodynamic compromise. At time of procedure completion, all ports aspirated and flushed properly. Ultrasound image documenting the guidewire within the right femoral are placed in the patient's chart. Estimated blood loss is 5mL. 71390 (ultrasound guidance) 78284 (insertion of non-tunneled centrally inserted central venous catheter) WENCESLAO CARRILLO MD May 07, 2024 16:46
--- NOTE | 2024-05-07 16:47 | DVHNC2 ---
Procedure - ULTRASOUND-GUIDED RIGHT Femoral Vein CENTRAL VENOUS CANNULATION CPT Codes: 49151 (ultrasound guidance) 68487 (insertion of non-tunneled centrally inserted central venous catheter) DATE: 05/07/2024 Time out: 1640 pm PHYSICIAN: Wenceslao Carrillo PREOPERATIVE DIAGNOSIS: Severe sepsis with poor venous access POSTOPERATIVE DIAGNOSIS: Severe sepsis with poor venous access PROCEDURE PERFORMED: Limited Ultrasound-guided Right femoral central line placement. ANESTHESIA: 2 mL of 1% lidocaine plain. ESTIMATED BLOOD LOSS: less than 5 mL. SPECIMENS: None. COMPLICATIONS: None. INDICATIONS FOR PROCEDURE: The patient is in need of large bore IV access for administration of fluids, including blood products and vasoactive drugs, and possibly CVP monitoring for hemodynamic instability. DESCRIPTION OF PROCEDURE IN DETAIL: The patient was lying in the reverse Trendelenburg position. The skin was thoroughly sponged with chlorhexidine and allowed to dry. All persons involved were shielded with hair nets, face masks and sterile gowns. With sterile-gloved hands the right neck area was draped with the large disposable sterile field provided in the pre-manufactured kit. The skin and subcutaneous tissues superficial to the RIGHT femoral vein were anesthetized with 2 mL of 1% lidocaine. The RIGHT femoral vein was identified on ultrasound using the linear ultrasound probe in the transverse orientation. The femoral artery was identified and avoided utilizing color-flow. The femoral vein was then placed in the center of the ultrasound field and compressed for patency. A movement artifact was identified as the needle was advanced through the skin and advanced toward the vessel. A real time hyperechoic signal revealed visualization of vascular needle entry into the lumen as blood was noted to flashback in the syringe. The needle was then held in place while the guide wire was advanced. The needle was then removed. Direct visualization of guide wire location within the vein was noted on ultrasound indicating proper placement and was document in the electronic medical record chart. A skin dilator was advanced over the guidewire and removed, and the triple-lumen catheter was then advanced over the guide wire into proper position. The guide wire was removed and discarded. The ports were aspirated which showed good blood return and then carefully flushed with normal saline. The catheter was stabilized and sutured to the skin with 2-0 silk at 2 anchor points. A sterile bio-patch and dressing was placed over the catheter, including the insertion site. The patient tolerated the procedure well. An image recording of the procedure accompanies the chart. WENCESLAO CARRILLO MD May 07, 2024 16:47
[2024-05-07] MEDS: SODIUM CHLORIDE LOCK 10 ML ONE (21:11)
--- NOTE | 2024-05-07 21:34 | DVHINCON2 ---
Date of service: May 07, [address] Camarena Reason for Consultation Rectal bleeding History of Present Illness 68-year-old male who came from [facility] for low blood pressure and bradycardia and bleeding. The patient has been there since about 2 weeks after what it appears he was discharged from another facility after he had sepsis and respiratory failure and was treated for atrial fibrillation. He is on Xarelto. It is reported that he has a nosebleed and rectal bleeding.The patient says he feels his abdomen is tight. Patient required urology to insert a complex catheter due to prostatic enlargement. Currently patient was seen in [facility]. Patient was on a dopamine drip and he was given treatment for hyperkalemia. Dr. Allen inserted a complex catheter because of urinary retention. Patient is having bleeding from the rectum on presentation but none today. Patient however is bleeding from an ear lobe prick and also from his nose and mouth and appears to have generalized coagulopathy. Patient is a poor historian but he does recall having had a colonoscopy a few years back which he states was negative. Past Medical History Cardiovascular: AFIB, CHF, HTN, hyperipidemia; cardiomyopathy [employer]: CVA Rheumatologic: Gout Renal/: Chronic renal insuff, Benign prostatic enlarg. Endocrine: Diabetes Past Surgical History Unknown Family History: Patient reports no known family medical history. Allergies: Coded Allergies: Ibuprofen (Verified Allergy, Unknown, 05/06/24) Penicillins (Verified Allergy, Unknown, 05/06/24) Current Medications Current Medications Medications (Trade) Dose Ordered Sig/Eloy Route PRN Reason Start Time Stop Time Status Last Admin Pantoprazole Sodium (Protonix) 40 mg BID IV 05/06/24 22:00 05/07/24 10:13 Meropenem 50 ml @ 17 mls/hr Q12HR IV 05/06/24 22:00 05/07/24 10:00 Methylprednisolone Sodium Succinate (Solu Medrol) 40 mg BID IV 05/06/24 22:00 05/07/24 10:13 Zirconium Oxide (Lokelma) 10 gm TID PO 05/07/24 14:00 05/09/24 06:01 05/07/24 14:28 Vital Signs Vital Signs Date Time Temp Pulse Resp B/P (MAP) Pulse Ox O2 Delivery O2 Flow Rate FiO2 05/07/24 19:30 79 14 124/68 (86) 97 05/07/24 19:03 Oxymizer 5.0 05/07/24 19:03 N/A 05/07/24 19:00 97.0 97.0 Physical Exam General Appearance: Alert, Oriented X2, awake and arousable Patient is bleeding from the site of his face near the earlobe Respiratory: Decreased breath sounds at the bases, occasional rhonchi Cardiovascular: Other (Bradycardic heart rate is 50) Abdominal: Normal bowel sounds;soft NT Extremities: 2+ pedal edema Labs/Diagnostic Data Labs Test 05/07/24 17:27 05/07/24 13:30 05/07/24 05:20 05/07/24 00:00 Range/Units POC Glucose 208 H 70-106 mg/dl Hemoglobin 8.7 L 13.5-17.5 g/dL Hematocrit 27.0 L 41.0-53.0 % Sodium Level 140 136-145 mmol/L Potassium Level 5.4 H 3.5-5.1 mmol/L Chloride Level 103 98-107 mmol/L Carbon Dioxide Level 21 20-31 mmol/L Anion Gap 16 H 5-15 Blood Urea Nitrogen 144 #*H 9-23 mg/dL Creatinine 6.23 H 0.700-1.30 mg/dL Glomerular Filtration Rate Calc 9 >90 mL/min BUN/Creatinine Ratio 23.1 H 10.0-20.0 Serum Glucose 202 H 74-106 mg/dL Calcium Level 8.2 L 8.7-10.4 mg/dL White Blood Count 6.6 4.4-10.8 10^3/uL Red Blood Count 2.81 L 4.5-5.90 10^6/uL Mean Corpuscular Volume 97.3 80.0-100.0 fL Mean Corpuscular Hemoglobin 32.2 H 28.0-32.0 pg Mean Corpuscular Hemoglobin Concent 33.1 32.0-36.0 g/dL Red Cell Distribution Width 19.5 H 11.8-14.3 % Platelet Count 284 140-450 10^3/uL Mean Platelet Volume 9.4 6.9-10.8 fL Neutrophils (%) (Auto) 94.5 H 37.0-80.0 % Lymphocytes (%) (Auto) 1.8 L 10.0-50.0 % Monocytes (%) (Auto) 3.7 0.0-12.0 % Eosinophils (%) (Auto) 0.0 0.0-7.0 % Basophils (%) (Auto) 0.0 0.0-2.0 % Neutrophils # (Auto) 6.3 1.6-8.6 10 ^3/uL Lymphocytes # (Auto) 0.1 L 0.4-5.4 10 ^3/uL Monocytes # (Auto) 0.2 0-1.3 10 ^3/uL Eosinophils # (Auto) 0 0-0.8 10 ^3/uL Basophils # (Auto) 0 0-0.2 10 ^3/uL Nucleated Red Blood Cells 0.2 % Prothrombin Time 24.5 H 9.3-11.8 sec Prothrombin Time INR 2.53 H 0.9-1.15 Activated Partial Thromboplast Time 34.5 24.5-34.5 SEC Magnesium Level 3.0 H 1.6-2.6 mg/dL Total Bilirubin 5.6 H 0.2-1.0 mg/dL Aspartate Amino Transferase (AST) 169 H 13-40 U/L Alanine Aminotransferase (ALT) 37 7-40 U/L Alkaline Phosphatase 648 H 46-116 U/L Total Protein 6.8 5.7-8.2 g/dL Albumin 3.0 L 3.2-4.8 g/dL Urine Color Red Yellow Urine Clarity Ex.turbid Clear Urine pH 6.5 5.0-9.0 Urine Specific [place] 1.018 1.001-1.035 Urine Protein 3+ H Negative Urine Ketones Negative Negative Urine Blood 3+ H Negative /uL Urine Nitrite Negative Negative Urine Bilirubin 1+ Negative Urine Urobilinogen Normal Negative mg/dL Urine Leukocyte Esterase Trace Negative /uL Urine RBC 4356 0 - 3 /hpf Urine Microscopic WBC 197 H 0-3 /HPF Urine Squamous Epithelial Cells None seen <5 /hpf Urine Bacteria None seen None Seen /hpf Urine Glucose Trace Normal mg/dL Test 05/06/24 19:34 05/06/24 17:07 05/06/24 12:08 05/06/24 10:38 Range/Units Troponin I High Sensitivity 671 *H </=54 ng/L Blood Gas Specimen Type Arterial Blood Gas Sample Site Left radial Blood Gas Patient Temperature 37.0 Arterial Blood Date Drawn [id number] Arterial Blood pH 7.374 7.350-7.450 Arterial Blood Partial Pressure CO2 28.0 L 35.0-48.0 mmHg Arterial Blood Partial Pressure O2 68.1 L 83.0-108.0 mmHg Arterial Blood HCO3 16.0 L 21.0-28.0 mmol/L Arterial Blood Oxygen Saturation 90.0 L 94.0-98.0 % Arterial Blood Base Excess -8.1 L -2.0-3.0 mmol/L Arterial Blood Oxyhemoglobin 89.2 L 94.0-98.0 % Arterial Blood Carboxyhemoglobin 0.6 0.5-1.5 % Arterial Blood Methemoglobin 0.3 0.0-1.5 % Manuel Test Modified Blood Gas Total Hemoglobin 9.60 L 13.5-17.5 g/dL Blood Gas Liter Flow 50.00 Blood Gas Modality High flow FiO2 % 55.0 Blood Gas Critical Value Read Back Yes Blood Gas Notified Whom Dr. camarena Blood Gas Notified Time [id number] Blood Gas Notified By Kobi phan rrt Lactic Acid Level 4.5 *H 0.4-2.0 mmol/L Test 05/06/24 08:40 Range/Units Hemoglobin A1c 5.7 <5.7 % A1C B-Type Natriuretic Peptide 981.10 0-100 pg/mL Triglycerides Level 94 < 150 mg/dL Cholesterol Level 88 < 200 mg/dL LDL Cholesterol 46 < 100 mg/dL HDL Cholesterol 13 L 40-59 mg/dL Thyroid Stimulating Hormone (TSH) 8.04 H 0.55-4.78 uIU/mL Microbiology Date/Time Source Procedure Growth Status 05/06/24 14:10 Blood Blood Culture - Preliminary NO GROWTH AFTER 24 HOURS OF INCUBATION. Resulted 05/06/24 12:03 Nose MRSA Screen - Final Methicillin Resistant S.aureus Complete CT SCAN ABD PELVIS IMPRESSION: 1. CHF with evidence of volume overload, moderate bilateral pleural effusions trace upper abdominal ascites and body wall edema. 2. Few colonic diverticula with no evidence of diverticulitis. Rectum is grossly unremarkable unenhanced study.Mild 3. Gallbladder wall edema likely related to CHF. Further evaluation with gallbladder ultrasound could be completed there is clinical concern for cholecystitis. Problems(with codes): (1) GI bleed (2) Volume overload (3) CHF exacerbation (4) Elevated troponin (5) Hypotension (6) Pulmonary edema (7) Bradycardia (8) Generalized weakness (9) Acute renal failure (10) Hyperkalemia (11) Lactic acidosis (12) Elevated liver enzymes Plan/Recommendation Plan I believe the patient has developed coagulopathy related to Xarelto and aspirin use Continue to monitor labs, patient is going to be transfused 1 unit FFP If hemoglobin drops below seven we will transfuse 2 units PRBC Continue to monitor labs and supportive care Protonix 40 mg IV q.12 hours Elevated liver enzymes likely related to liver congestion due to cardiac issues and fluid overload Check hepatitis panel, right upper quadrant ultrasound Supportive care Patient is currently not stable for an endoscopy and I will continue to monitor labs Ice chips clear liquid diet advance as tolerated Plan discussed with: Patient, Other ([facility] Nurse) LUIS BARBA MD May 07, 2024 21:34
--- NOTE | 2024-05-07 23:37 | DVHPN2 ---
Progress Note - Dictate Date Seen: May 07, 2024 Medical Necessity Reason Pt with a Central, PICC or Fol: Yes The following are medically ne: Central Line, Starkey Catheter Reason for starkey catheter: Strict I&O Subjective Patient seen and examined at bedside. Remains on supplemental oxygen Overnight events reviewed. vital signs Vital Sign Date Time Temp Pulse Resp B/P (MAP) Pulse Ox O2 Delivery O2 Flow Rate FiO2 05/07/24 23:00 82 16 107/63 (78) 05/07/24 21:00 99 05/07/24 20:00 Oxymizer 5 N/A 05/07/24 20:00 97.3 97.3 Total Intake and Output 05/06/24 05/06/24 05/07/24 15:00 23:00 07:00 Intake Total 102.5 ml 703.25 ml 995.063 ml Output Total 100 ml 150 ml Balance 102.5 ml 603.25 ml 845.063 ml medications Current Medications Medications Dose Ordered Sig/Eloy Route Start Time Stop Time Status Last Admin Dose Admin Nitroglycerin 0.4 mg Q5MINP PRN SL 05/06/24 10:45 Morphine Sulfate 2 mg Q30M PRN IV 05/06/24 10:45 Pantoprazole Sodium 40 mg BID IV 05/06/24 22:00 05/07/24 22:43 40 MG Ondansetron HCl 4 mg Q4HPRN PRN IV 05/06/24 11:00 05/06/24 15:41 4 MG Meropenem 50 ml @ 17 mls/hr Q12HR IV 05/06/24 22:00 05/07/24 22:45 17 MLS/HR Diagnostic Test (Pha) 1 strip Q6HR 05/06/24 12:00 05/07/24 17:38 1 STRIP Insulin Human Regular Q6HR SC 05/06/24 12:00 05/07/24 17:38 4 UNITS Dextrose 50 ml UD PRN IV 05/06/24 11:15 Norepinephrine Bitartrate 32 mg/ Sodium Chloride 250 ml @ 0.938 mls/ hr Q24H IV 05/06/24 13:00 05/06/24 23:08 0.938 MLS/HR Linezolid 300 ml @ 300 mls/hr Q12H IV 05/06/24 17:00 05/07/24 17:24 300 MLS/HR Methylprednisolone Sodium Succinate 40 mg BID IV 05/06/24 22:00 05/07/24 22:43 40 MG Bumetanide 25 mg/ Miscellaneous 100 ml @ 4 mls/hr Q24H IV 05/06/24 17:15 05/07/24 17:24 4 MLS/HR Zirconium Oxide 10 gm TID PO 05/07/24 14:00 05/09/24 06:01 05/07/24 22:43 10 GM objective Gen.: Patient lying in bed in no apparent distress. On supplemental oxygen. Head: Normocephalic, atraumatic. Eyes: EOMI/PERRLA. Ears: Normal hearing. Normal anatomy. Neck/trachea: Trachea midline, supple. Nose: Normal external anatomy. Mouth: Moist mucous membranes. Chest: Decreased air entry bilaterally. No wheezing or rhonchi. Cardiovascular: Positive S1, positive S2. Regular rate and rhythm. Abdomen: Positive bowel sounds in all 4 quadrants. Soft, non-tender, non- distended. : Deferred. Rectal: Deferred. Skin: Warm, dry. Intact. Extremities: 2+ radial pulses bilaterally. No lower extremity edema. Neuro: Awake, alert, oriented x3. No gross motor or sensory deficits. Cranial nerves II through XII intact. Gait not assessed. laboratory and microbiology Laboratory Tests 05/07/24 13:30 05/07/24 05:20 Test 05/07/24 13:30 Range/Units Serum Glucose 202 H 74-106 mg/dL Assessment/Plan Impression: Acute hypoxic respiratory failure Dependence on supplemental oxygen Acute COPD exacerbation CHF exacerbation Metabolic acidosis Obesity BMI 39.4 Events: Remains on supplemental oxygen, 5 LPM NC Taper O2 as tolerated Improved O2 requirements On pressors for hemodynamic support Levophed 12 mcg/min Titrate to keep MAP above 65 mmHg/SBP above 90 mmHg. Continue bronchodilators Continue steroids Continue antibiotics Incentive spirometry Bumex drip for diuresis Monitor renal function - poor urine output Monitor electrolytes. Supplement as necessary. Monitor ins and outs. Plan for Richi cath placement for HD. Nephrology recs appreciated. FFP transfusion Monitor hemoglobin Elevated INR. S/p right femoral Richi cath for HD + central line for administration of pressors Labs and imaging reviewed. Rest of plan as noted below. Plan: Continue supplemental oxygen Titrate to keep O2 sats above 92%. ABG reviewed, notable for acidemia c/w metabolic acidosis Chest x-ray reviewed, notable for cardiomegaly with pulmonary congestion and edema. Superimposed pneumonia cannot be excluded. On pressors for hemodynamic support Titrate to keep MAP above 65 mmHg/SBP above 90 mmHg. Continue bronchodilators Continue antibiotics Continue steroids - Solu-Medrol IV 40 mg q.12 hours Incentive spirometry Diurese as tolerated w/ Bumex Monitor renal function. Monitor electrolytes. Supplement as necessary. Monitor ins and outs. Nephrology recs appreciated. DVT prophylaxis. Prognosis: Poor given patient's multiple co-morbidities. Condition: Critical Rest of plan per hospitalist and other consultants. A total of 35 minutes of critical care time was spent reviewing the patient record, examining the patient, making a diagnostic and therapeutic plan, discussing this plan with the medical personnel, following up on diagnostic studies and following the patient for clinical stability excluding any and all procedures. At least 50% of this time was spent in direct, [id number] contact. Thank you, Dr. Camarena, for allowing me to participate in this patient's care. Further recommendations will depend on the patient's clinical course. Please do not hesitate to contact me if you have any questions or concerns. This medical document was created using an electronic medical record system with [employer] dictation system. Although these documentations are being carefully reviewed, there may still be some phonetic and typographical changes. The errors are purely typographical, due to imperfection on the software program, and do not reflect any compromise in the patient's medical care. Plan discussed with: Other (KIM Winchester) Critical Care Time(min): 35 WENCESLAO ESCOBAR MD May 07, 2024 23:37
[2024-05-08] VITALS (130 sets, daily range): BP systolic 76–122; BP diastolic 46–74; PULSE 75–105; RESP 7–20; TEMP 96.4–99; O2SAT 85–100
[2024-05-08 05:52] LABS: Basophils # (auto) 0 10 ^3/uL (0-0.2); Eosinophils # (auto) 0 10 ^3/uL (0-0.8); Hemoglobin 8.2 g/dL (13.5-17.5); Lymphocytes # (auto) 0.1 10 ^3/uL (0.4-5.4); Neutrophils # (auto) 8.1 10 ^3/uL (1.6-8.6); Nucleated Red Blood Cells % 0.3 %; White Blood Cell 8.5 10^3/uL (4.4-10.8)
[2024-05-08 05:53] LABS: Basophils % (auto) 0.1 % (0.0-2.0); Hematocrit 24.7 % (41.0-53.0); Lymphocytes % (auto) 1.7 % (10.0-50.0); Mean Corpuscular Hemoglobin 31.9 pg (28.0-32.0); Mean Corpuscular Hgb Conc. 33.1 g/dL (32.0-36.0); Mean Corpuscular Volume 96.4 fL (80.0-100.0); Monocytes # (auto) 0.2 10 ^3/uL (0-1.3); Monocytes % (auto) 2.9 % (0.0-12.0); Neutrophils % (auto) 95.3 % (37.0-80.0); Platelet Count (auto) 249 10^3/uL (140-450); Red Blood Cells 2.57 10^6/uL (4.5-5.90); Red Cell Distribution Width 19.5 % (11.8-14.3)
[2024-05-08 06:11] LABS: % Iron Saturation 14.4 % (20-55)
[2024-05-08 06:12] LABS: Alanine Aminotransferase 42 U/L (7-40); Alkaline Phosphatase 600 U/L (46-116); Anion Gap 16 (5-15); Aspartate Aminotransferase 211 U/L (13-40); BUN/Creatinine Ratio 22.9 (10.0-20.0); Bilirubin, Total 6.1 mg/dL (0.2-1.0); Blood Urea Nitrogen 148 mg/dL (9-23); Calcium 8.5 mg/dL (8.7-10.4); Carbon Dioxide 22 mmol/L (20-31); Chloride 101 mmol/L (98-107); Glucose 195 mg/dL (74-106); Sodium 139 mmol/L (136-145); Total Protein 6.7 g/dL (5.7-8.2)
[2024-05-08 06:14] LABS: Potassium 5.7 mmol/L (3.5-5.1)
[2024-05-08 06:17] LABS: INR 1.77 (0.9-1.15); Partial Thromboplastin Time 30.2 SEC (24.5-34.5); Prothrombin Time 17.7 sec (9.3-11.8)
[2024-05-08] MEDS: SODIUM CHL 0.9% 1000 ML BAG XX ONE (07:00)
[2024-05-08 07:01] LABS: Magnesium 3.1 mg/dL (1.6-2.6)
--- NOTE | 2024-05-08 09:33 | DVHPN2 ---
Subjective Complaints of abdominal pain and leg pain On Levophed drip Creatinine is up to 6.4 Potassium is 5.7 INR is 1.7 Hemoglobin 8.2 Changes from previous H/P or p: Changes Gastrointestinal: Abdominal Pain Objective Vitals Vital Signs Date Time Temp Pulse Resp B/P (MAP) Pulse Ox O2 Delivery O2 Flow Rate FiO2 05/08/24 08:00 82 05/08/24 07:00 16 105/61 (76) 05/08/24 05:45 93 Oxymizer 4 41 41 05/08/24 04:00 97.7 97.7 Intake/Output Intake and Output 05/08/24 07:00 Intake Total 2040.190 ml Output Total 775 ml Balance 1265.190 ml Intake Oral 560 ml IV Total 580.190 ml Blood Product 900 ml Output Urine Total 775 ml General Appearance: Alert Lungs: Other (B Rhonchi) Extremities: Other (2+ edema diffuse) Medications Current Medications Medications Dose Ordered Sig/Eloy Route Start Time Stop Time Status Last Admin Dose Admin Nitroglycerin 0.4 mg Q5MINP PRN SL 05/06/24 10:45 Morphine Sulfate 2 mg Q30M PRN IV 05/06/24 10:45 Pantoprazole Sodium 40 mg BID IV 05/06/24 22:00 05/07/24 22:43 40 MG Ondansetron HCl 4 mg Q4HPRN PRN IV 05/06/24 11:00 05/06/24 15:41 4 MG Meropenem 50 ml @ 17 mls/hr Q12HR IV 05/06/24 22:00 05/07/24 22:45 17 MLS/HR Diagnostic Test (Pha) 1 strip Q6HR 05/06/24 12:00 05/08/24 06:00 1 STRIP Insulin Human Regular Q6HR SC 05/06/24 12:00 05/08/24 06:13 3 UNITS Dextrose 50 ml UD PRN IV 05/06/24 11:15 Norepinephrine Bitartrate 32 mg/ Sodium Chloride 250 ml @ 0.938 mls/ hr Q24H IV 05/06/24 13:00 05/06/24 23:08 0.938 MLS/HR Linezolid 300 ml @ 300 mls/hr Q12H IV 05/06/24 17:00 05/08/24 05:29 300 MLS/HR Methylprednisolone Sodium Succinate 40 mg BID IV 05/06/24 22:00 05/07/24 22:43 40 MG Bumetanide 25 mg/ Miscellaneous 100 ml @ 4 mls/hr Q24H IV 05/06/24 17:15 05/07/24 17:24 4 MLS/HR Zirconium Oxide 10 gm TID PO 05/07/24 14:00 05/09/24 06:01 05/08/24 06:12 10 GM Laboratory Results Laboratory Tests 05/08/24 05:18 Chemistry Test 05/07/24 13:30 05/08/24 05:18 Calcium Level 8.2 mg/dL (8.7-10.4) L 8.5 mg/dL (8.7-10.4) L Albumin Pending Albumin/Globulin Ratio Pending Magnesium Level 3.1 mg/dL (1.6-2.6) H Total Protein Pending Coagulation Test 05/08/24 05:18 Prothrombin Time 17.7 sec (9.3-11.8) H Prothrombin Time INR 1.77 (0.9-1.15) H Activated Partial Thromboplast Time 30.2 SEC (24.5-34.5) LFT Test 05/08/24 05:18 Alanine Aminotransferase (ALT) 42 U/L (7-40) H Alkaline Phosphatase 600 U/L (46-116) H Aspartate Amino Transferase (AST) 211 U/L (13-40) H Total Bilirubin 6.1 mg/dL (0.2-1.0) H Urinalysis Test 05/07/24 00:00 Urine Color Red (Yellow) Urine Clarity Ex.turbid (Clear) Urine pH 6.5 (5.0-9.0) Urine Specific [place] 1.018 (1.001-1.035) Urine Protein 3+ (Negative) H Urine Ketones Negative (Negative) Urine Blood 3+ /uL (Negative) H Urine Nitrite Negative (Negative) Urine Bilirubin 1+ (Negative) Urine Urobilinogen Normal mg/dL (Negative) Urine Leukocyte Esterase Trace /uL (Negative) Urine RBC 4356 /hpf (0 - 3) Urine Microscopic WBC 197 /HPF (0-3) H Urine Squamous Epithelial Cells None seen /hpf (<5) Urine Bacteria None seen /hpf (None Seen) Urine Glucose Trace mg/dL (Normal) Microbiology Microbiology Date/Time Source Procedure Growth Status 05/06/24 14:10 Blood Blood Culture - Preliminary NO GROWTH AFTER 24 HOURS OF INCUBATION. Resulted 05/06/24 12:03 Nose MRSA Screen - Final Methicillin Resistant S.aureus Complete Assessment/Plan Assessment/Plan Severe sepsis with septic shock Bradycardia Possible GI bleed Acute on chronic kidney disease Acute heart failure, possibly systolic Pulmonary edema Hyperkalemia Anemia, macrocytic History of chronic kidney disease stage 3 Elevated liver function tests with a total bilirubin of 5.3 Lactic acidosis NSTEMI Urinary retention History of heart failure and cardiomyopathy History of CVA Atrial fibrillation on Xarelto Mixed hyperlipidemia Type 2 diabetes BPH Recent sepsis and respiratory failure History of gout GERD Plan Admit to ICU Dopamine drip Oxygen as needed Calcium gluconate Lokelma Keep NPO now Nephrology consult Cardiology consult Echocardiogram Urology consult because a Brown catheter could not be inserted Possible urinary retention Broad-spectrum antibiotics meropenem and Zyvox 05/07/24: Hyperkalemia: Protocol Worsening CKD: HD per nephrology Dialysis catheter planned Transfuse FFP Vit K IV antibiotics: Meropenem & Zyvox IV steroids Vasopressors prn EF 25-30% Hematuria Urinary retention Coagulopathy due to sepsis? 05/08/2024: Give morphine p.r.n. for the pain Vitamin K 5 mg IV x1 Hemodialysis scheduled for today Levophed drip as needed Bumex drip IV antibiotics with meropenem and linezolid Infectious Disease consultation Nephrology is on case and following Anemia: Monitor hemoglobin and transfuse as needed Plan discussed with: Patient Date of Service: May 08, 2024 Billing Provider: RONALD SUÁREZ MD Common Visit Codes: NOT BILLABLE RONALD SUÁREZ MD May 08, 2024 09:33
--- NOTE | 2024-05-08 10:00 | DVHINCON2 ---
Date of service: May 08, [address] Camarena Reason for Consultation Septic shock History of Present Illness Patient is a 68-year-old male who was recently transferred from [facility]. The caregiver has observed a decline in his condition over the past few days. Initially, rectal bleeding was noted in his diaper, which has now stopped. His blood pressure has been low, with systolic readings in the 80s. The patient was discharged from [facility] after being treated for sepsis, though the exact dates of this event are not provided. He is alert and oriented to person, place, and time. Patient is undergoing hemodialysis and had a Richi catheter placed yesterday, marking the beginning of his dialysis treatment. He is currently receiving 5 liters of oxygen via an Oximizer. His medical history includes bladder outlet obstruction, for which a Brown catheter was inserted by Dr. Aleln. Patient has experienced bleeding, potentially due to an elevated INR, which was over 2 earlier today but has since decreased to 1.77. There has been bleeding at the site of the Richi catheter, which has been managed with a pressure bandage. His hemoglobin level is 8.2, and his pH is 7.3. He presents with symptoms of fluid overload and edema and has been eating minimally, mostly consuming ice chips. An MRSA screen returned positive results, while blood cultures were negative. He appears to have generalized weakness and is experiencing hematuria. Past Medical History Patient's past medical history is significant for AFIB, CHF, Hypertension, hyperlipidemia, CVA, Gout, Chronic renal insuff, Benign prostatic enlargement and Diabetes mellitus. Family History: Patient reports no known family medical history. Allergies: Coded Allergies: Ibuprofen (Verified Allergy, Unknown, 05/06/24) Penicillins (Verified Allergy, Unknown, 05/06/24) Home Meds Reported Medications Losartan Potassium (Losartan Potassium) 25 Mg Tab, 1 TAB PO DAILY for 100 Days, #100 05/08/24 Aspirin (Aspirin Low Dose) 81 Mg Chw, 1 TAB PO DAILY for 90 Days, #90 05/08/24 Metformin Hydrochloride (Metformin Hcl) 500 Mg Tab, 1 TAB PO BID for 100 Days, #200 05/08/24 Metolazone (Metolazone) 2.5 Mg Tab, 1 TAB PO DAILY for 90 Days, #90 05/08/24 Potassium Chloride (Potassium Chloride ER) 20 Meq Tab, 1 TAB PO DAILY for 90 Days, #90 05/08/24 Glipizide (Glipizide) 5 Mg Tab, 1 TAB PO BID for 90 Days, #180 05/08/24 Latanoprost (LATANOPROST) 0.005 % Maame, 1 DROP EACHEYE QPM for 25 Days, #2.5 05/08/24 Rivaroxaban (XARELTO) 15 Mg Tab, 1 TAB PO DAILY for 14 Days, #14 05/08/24 Allopurinol (Allopurinol) 100 Mg Tab, 1 TAB PO DAILY for 31 Days, #31 05/08/24 Trazodone Hcl (Trazodone Hcl) 50 Mg Tab, 1 TAB PO DAILY for 31 Days, #31 05/08/24 Tamsulosin Hcl (Tamsulosin Hcl) 0.4 Mg Cap, 1 CAP PO DAILY for 31 Days, #31 05/08/24 Finasteride (Finasteride) 5 Mg Tab, 1 TAB PO DAILY for 31 Days, #31 05/08/24 Pantoprazole Sodium Sesquihydr (Protonix) 40 Mg Tab, 1 TAB PO DAILY for 31 Days, #31 05/08/24 Atorvastatin Calcium (Lipitor) 40 Mg Tab, 1 TAB PO DAILY for 31 Days, #31 05/08/24 Midodrine Hcl (Midodrine Hcl) 5 Mg Tab, 1 TAB PO TID for 31 Days, #93 05/08/24 Bumetanide (Bumetanide) 1 Mg Tab, 1 TAB PO BID for 90 Days, #180 05/08/24 Amiodarone Hcl (Amiodarone Hcl) 200 Mg Tab, 1 TAB PO DAILY for 31 Days, #31 05/08/24 Metoprolol Succinate (Metoprolol Succinate Er) 25 Mg Tab, 1 TAB PO DAILY for 31 Days, #31 05/08/24 Insulin Lispro (Human) (Humalog) 100 Unit/Ml Inj, UNIT SC UD for 28 Days, #10 Per sliding scale. 05/08/24 Current Medications Current Medications Medications (Trade) Dose Ordered Sig/Eloy Route PRN Reason Start Time Stop Time Status Last Admin Zirconium Oxide (Lokelma) 10 gm TID PO 05/07/24 14:00 05/09/24 06:01 05/08/24 06:12 Morphine Sulfate 2 mg Q4HPRN PRN IV SEVERE PAIN (7-10 PAIN SCALE) 05/08/24 09:30 UNV Review of Systems General: No Fever, chills, night sweats or weight loss. Minimal eating, primarily consuming ice chips HEENT: No Sinus pain, headache, vision changes or sore throat Respiratory: No Cough, dyspnea, sputum production Cardiovascular: No Chest pain, palpitations or leg edema Gastrointestinal: Positive for abdominal pain. No Nausea, vomiting, diarrhea, abdominal pain Genitourinary: Positive for hematuria. No Dysuria, urinary frequency, pelvic pain Skin: No Rashes, ulcers, abscesses, redness or swelling Musculoskeletal: No Joint pain, muscle pain or swelling Neurologic: Positive for weakness. No Altered mental status, headaches or focal neurological deficits Psychiatric: No Anxiety, depression or confusion Vital Signs Vital Signs Date Time Temp Pulse Resp B/P (MAP) Pulse Ox O2 Delivery O2 Flow Rate FiO2 05/08/24 08:00 82 05/08/24 07:00 16 105/61 (76) 05/08/24 05:45 93 Oxymizer 4 41 41 05/08/24 04:00 97.7 97.7 Physical Exam General: Patient is alert, opened his eyes, however did not communicate much, seems like has generalized weakness. HEENT: Normocephalic, atraumatic, Sclera anicteric, conjunctiva clear, No nasal discharge or congestion. Mucous membranes moist, no tonsillar erythema or exudates. Neck: No cervical lymphadenopathy or masses. No neck stiffness. Respiratory: Other (Bilateral rhonchi) Cardiovascular: Other (Bradycardic heart rate is 50) Abdomen: Soft, non-tender, non-distended. Bowel sounds present in all quadrants. No hepatosplenomegaly or masses. Skin: No rash, petechiae, or ecchymosis. Genitourinary: Patient has a folic catheter with bleeding. He has a Richi catheter in place, also has some bleeding with the pressure bandage on. Extremities: Other (+edema in the upper and lower extremities and 3+ edema in the left arm) Neurologic: Patient is alert. Unable to assess. Labs/Diagnostic Data Labs Test 05/08/24 05:19 05/08/24 05:18 05/07/24 00:00 05/06/24 19:34 Range/Units POC Glucose 168 H 70-106 mg/dl White Blood Count 8.5 # 4.4-10.8 10^3/uL Red Blood Count 2.57 L 4.5-5.90 10^6/uL Hemoglobin 8.2 L 13.5-17.5 g/dL Hematocrit 24.7 L 41.0-53.0 % Mean Corpuscular Volume 96.4 80.0-100.0 fL Mean Corpuscular Hemoglobin 31.9 28.0-32.0 pg Mean Corpuscular Hemoglobin Concent 33.1 32.0-36.0 g/dL Red Cell Distribution Width 19.5 H 11.8-14.3 % Platelet Count 249 140-450 10^3/uL Mean Platelet Volume 9.7 6.9-10.8 fL Neutrophils (%) (Auto) 95.3 H 37.0-80.0 % Lymphocytes (%) (Auto) 1.7 L 10.0-50.0 % Monocytes (%) (Auto) 2.9 0.0-12.0 % Eosinophils (%) (Auto) 0.0 0.0-7.0 % Basophils (%) (Auto) 0.1 0.0-2.0 % Neutrophils # (Auto) 8.1 1.6-8.6 10 ^3/uL Lymphocytes # (Auto) 0.1 L 0.4-5.4 10 ^3/uL Monocytes # (Auto) 0.2 0-1.3 10 ^3/uL Eosinophils # (Auto) 0 0-0.8 10 ^3/uL Basophils # (Auto) 0 0-0.2 10 ^3/uL Nucleated Red Blood Cells 0.3 % Prothrombin Time 17.7 H 9.3-11.8 sec Prothrombin Time INR 1.77 H 0.9-1.15 Activated Partial Thromboplast Time 30.2 24.5-34.5 SEC Sodium Level 139 136-145 mmol/L Potassium Level 5.7 *H 3.5-5.1 mmol/L Chloride Level 101 98-107 mmol/L Carbon Dioxide Level 22 20-31 mmol/L Anion Gap 16 H 5-15 Blood Urea Nitrogen 148 *H 9-23 mg/dL Creatinine 6.46 H 0.700-1.30 mg/dL Glomerular Filtration Rate Calc 9 >90 mL/min BUN/Creatinine Ratio 22.9 H 10.0-20.0 Serum Glucose 195 H 74-106 mg/dL Calcium Level 8.5 L 8.7-10.4 mg/dL Magnesium Level 3.1 H 1.6-2.6 mg/dL Iron Level 34 L 65-175 ug/dL Total Iron Binding Capacity 236 L 250-425 ug/dL Percent Iron Saturation 14.4 L 20-55 % Total Bilirubin 6.1 H 0.2-1.0 mg/dL Aspartate Amino Transferase (AST) 211 H 13-40 U/L Alanine Aminotransferase (ALT) 42 H 7-40 U/L Alkaline Phosphatase 600 H 46-116 U/L Urine Color Red Yellow Urine Clarity Ex.turbid Clear Urine pH 6.5 5.0-9.0 Urine Specific [place] 1.018 1.001-1.035 Urine Protein 3+ H Negative Urine Ketones Negative Negative Urine Blood 3+ H Negative /uL Urine Nitrite Negative Negative Urine Bilirubin 1+ Negative Urine Urobilinogen Normal Negative mg/dL Urine Leukocyte Esterase Trace Negative /uL Urine RBC 4356 0 - 3 /hpf Urine Microscopic WBC 197 H 0-3 /HPF Urine Squamous Epithelial Cells None seen <5 /hpf Urine Bacteria None seen None Seen /hpf Urine Glucose Trace Normal mg/dL Troponin I High Sensitivity 671 *H </=54 ng/L Test 05/06/24 17:07 05/06/24 12:08 05/06/24 10:38 05/06/24 08:40 Range/Units Blood Gas Specimen Type Arterial Blood Gas Sample Site Left radial Blood Gas Patient Temperature 37.0 Arterial Blood Date Drawn [id number] Arterial Blood pH 7.374 7.350-7.450 Arterial Blood Partial Pressure CO2 28.0 L 35.0-48.0 mmHg Arterial Blood Partial Pressure O2 68.1 L 83.0-108.0 mmHg Arterial Blood HCO3 16.0 L 21.0-28.0 mmol/L Arterial Blood Oxygen Saturation 90.0 L 94.0-98.0 % Arterial Blood Base Excess -8.1 L -2.0-3.0 mmol/L Arterial Blood Oxyhemoglobin 89.2 L 94.0-98.0 % Arterial Blood Carboxyhemoglobin 0.6 0.5-1.5 % Arterial Blood Methemoglobin 0.3 0.0-1.5 % Manuel Test Modified Blood Gas Total Hemoglobin 9.60 L 13.5-17.5 g/dL Blood Gas Liter Flow 50.00 Blood Gas Modality High flow FiO2 % 55.0 Blood Gas Critical Value Read Back Yes Blood Gas Notified Whom Dr. camarena Blood Gas Notified Time [id number] Blood Gas Notified By Kobi phan rrt Lactic Acid Level 4.5 *H 0.4-2.0 mmol/L Hemoglobin A1c 5.7 <5.7 % A1C B-Type Natriuretic Peptide 981.10 0-100 pg/mL Triglycerides Level 94 < 150 mg/dL Cholesterol Level 88 < 200 mg/dL LDL Cholesterol 46 < 100 mg/dL HDL Cholesterol 13 L 40-59 mg/dL Thyroid Stimulating Hormone (TSH) 8.04 H 0.55-4.78 uIU/mL Microbiology Date/Time Source Procedure Growth Status 05/06/24 14:10 Blood Blood Culture - Preliminary NO GROWTH AFTER 24 HOURS OF INCUBATION. Resulted 05/06/24 12:03 Nose MRSA Screen - Final Methicillin Resistant S.aureus Complete Assessment Patient is a 68-year-old male presents to the hospital with: Shock possibly secondary to septic Metabolic acidosis Severe acute kidney injury Hematuria Bladder outlet obstruction, S/P Brown catheter Elevated INR Pulmonary edema, MSRA Recommendations: Patient has newly started on dialysis, plan to repeat dialysis tomorrow. Monitor fluid balance. Patient is currently on broad-spectrum antibiotics, Meropenem IV, Norepinephrine, continue for now. Chest x-ray shows Pulmonary congestion, pneumonia cannot be ruled out. Personally reviewed. Consider adding Vancomycin Urology is on board GI consulted for GI bleed Antibiotic status: Meropenem IV [Started on 05/06 - Ongoing] 05/06, Blood cultures showed no growth 05/06, MRSA came back positive Nephrology is on board. 05/07, Urine culture showed 10,000 CFU/mL Yeast Identification to follow. Prognosis guarded Poor critical time spent 45 minutes soon, then counter-plan discussed with the nurse. Thank you for consult. Plan discussed with: SOLEDAD Rich MD May 08, 2024 10:00
--- NOTE | 2024-05-08 10:11 | DVHPN2 ---
Progress Note Date Seen: May 08, 2024 Medical Necessity Reason Pt with a Central, PICC or Fol: Yes The following are medically ne: Central Line, Starkey Catheter Reason for starkey catheter: Strict I&O Subjective Other Systems: Patient seen and examined by myself today in follow-up Patient examined hemodialysis, blood pressure stable Objective vital signs Vital Sign Date Time Temp Pulse Resp B/P (MAP) Pulse Ox O2 Delivery O2 Flow Rate FiO2 05/08/24 08:00 82 05/08/24 07:00 16 105/61 (76) 05/08/24 05:45 93 Oxymizer 4 41 41 05/08/24 04:00 97.7 97.7 Total Intake and Output 05/07/24 05/07/24 05/08/24 15:00 23:00 07:00 Intake Total 417.688 ml 726.688 ml 895.814 ml Output Total 500 ml 275 ml Balance 417.688 ml 226.688 ml 620.814 ml medications Current Medications Medications Dose Ordered Sig/Eloy Route Start Time Stop Time Status Last Admin Dose Admin Nitroglycerin 0.4 mg Q5MINP PRN SL 05/06/24 10:45 Morphine Sulfate 2 mg Q30M PRN IV 05/06/24 10:45 Pantoprazole Sodium 40 mg BID IV 05/06/24 22:00 05/08/24 09:36 40 MG Ondansetron HCl 4 mg Q4HPRN PRN IV 05/06/24 11:00 05/06/24 15:41 4 MG Meropenem 50 ml @ 17 mls/hr Q12HR IV 05/06/24 22:00 05/08/24 09:36 17 MLS/HR Diagnostic Test (Pha) 1 strip Q6HR 05/06/24 12:00 05/08/24 06:00 1 STRIP Insulin Human Regular Q6HR SC 05/06/24 12:00 05/08/24 06:13 3 UNITS Dextrose 50 ml UD PRN IV 05/06/24 11:15 Norepinephrine Bitartrate 32 mg/ Sodium Chloride 250 ml @ 0.938 mls/ hr Q24H IV 05/06/24 13:00 05/06/24 23:08 0.938 MLS/HR Linezolid 300 ml @ 300 mls/hr Q12H IV 05/06/24 17:00 05/08/24 05:29 300 MLS/HR Methylprednisolone Sodium Succinate 40 mg BID IV 05/06/24 22:00 05/08/24 09:37 40 MG Bumetanide 25 mg/ Miscellaneous 100 ml @ 4 mls/hr Q24H IV 05/06/24 17:15 05/07/24 17:24 4 MLS/HR Zirconium Oxide 10 gm TID PO 05/07/24 14:00 05/09/24 06:01 05/08/24 06:12 10 GM Morphine Sulfate 2 mg Q4HPRN PRN IV 05/08/24 09:30 UNV Examination: LUNGS:Normal, CVS:Normal, MSK:Normal laboratory and microbiology Laboratory Tests 05/08/24 05:18 Test 05/08/24 05:18 Range/Units Serum Glucose 195 H 74-106 mg/dL Microbiology Date/Time Source Procedure Growth Status 05/06/24 14:10 Blood Blood Culture - Preliminary NO GROWTH AFTER 24 HOURS OF INCUBATION. Resulted 05/06/24 12:03 Nose MRSA Screen - Final Methicillin Resistant S.aureus Complete Problem List/Assessment/Plan Problem List/Assessment/Plan Acute kidney injury superimposed Chronic Kidney Disease requiring hemodialysis Hyperkalemia Diabetes mellitus type 2 Metabolic acidosis Congestive heart failure, ejection fraction 20% Anasarca Proteinuria Gross hematuria after Starkey Anemia of chronic kidney disease Recommendation Continue with UF 1-2 L as tolerated, use low K bath Epogen 53723 subQ with hemodialysis Discontinue diuresis Fluid restrictions Renal diet Cardiology consult We will continue to follow up Plan discussed with: Patient My Orders My Orders Orders - KERMIT HARKINS MD Procedure Category Date Status Time Hemodialysis Orders ORDERS 05/08/24 Transmitted 10:05 Dietary Evaluation Review Comments: 1) Ensure clear 8floz TID 2) Advance diet as medically feasible 3) Consider [id number] + renal standard diet as goal diet 4) Continue current plan of care Expected Outcomes/Goals: Pt will meet 75% estimated needs Fu 2-3 days KERMIT HARKINS MD May 08, 2024 10:11
[2024-05-08 10:34] LABS: Hepatitis A Ab IgM Negative; Hepatitis B Core IgM Negative (Negative); Hepatitis B Surface Antigen Negative (Negative); Hepatitis C Antibody Negative (Negative)
--- NOTE | 2024-05-08 11:46 | DVHPN2 ---
Progress Note Date Seen: May 08, 2024 Resident Creating Document: BEL LANCE RESIDENT Medical Necessity Reason Pt with a Central, PICC or Fol: Yes The following are medically ne: Central Line, Starkey Catheter Reason for starkey catheter: Strict I&O Subjective Review of Systems 68-year-old male who came from [facility] for low blood pressure and bradycardia and bleeding. The patient has been there since about 2 weeks after what it appears he was discharged from another facility after he had sepsis and respiratory failure and was treated for atrial fibrillation. He is on Xarelto. It is reported that he has a nosebleed and rectal bleeding.The patient says he feels his abdomen is tight. Patient required urology to insert a complex catheter due to prostatic enlargement. Currently patient was seen in [facility]. Patient was on a dopamine drip and he was given treatment for hyperkalemia. Dr. Allen inserted a complex catheter because of urinary retention. Patient is having bleeding from the rectum on presentation but none today. Patient however is bleeding from an ear lobe prick and also from his nose and mouth and appears to have generalized coagulopathy. Patient is a poor historian but he does recall having had a colonoscopy a few years back which he states was negative. Seen examined at bedside, complaining of abdominal pain. Objective vital signs Vital Sign Date Time Temp Pulse Resp B/P (MAP) Pulse Ox O2 Delivery O2 Flow Rate FiO2 05/08/24 08:00 82 16 97 Oxymizer 5 N/A 05/08/24 07:00 105/61 (76) 05/08/24 04:00 97.7 97.7 Total Intake and Output 05/07/24 05/07/24 05/08/24 15:00 23:00 07:00 Intake Total 417.688 ml 726.688 ml 895.814 ml Output Total 500 ml 275 ml Balance 417.688 ml 226.688 ml 620.814 ml medications Current Medications Medications Dose Ordered Sig/Eloy Route Start Time Stop Time Status Last Admin Dose Admin Nitroglycerin 0.4 mg Q5MINP PRN SL 05/06/24 10:45 Morphine Sulfate 2 mg Q30M PRN IV 05/06/24 10:45 Pantoprazole Sodium 40 mg BID IV 05/06/24 22:00 05/08/24 09:36 40 MG Ondansetron HCl 4 mg Q4HPRN PRN IV 05/06/24 11:00 05/06/24 15:41 4 MG Meropenem 50 ml @ 17 mls/hr Q12HR IV 05/06/24 22:00 05/08/24 09:36 17 MLS/HR Diagnostic Test (Pha) 1 strip Q6HR 05/06/24 12:00 05/08/24 06:00 1 STRIP Insulin Human Regular Q6HR SC 05/06/24 12:00 05/08/24 06:13 3 UNITS Dextrose 50 ml UD PRN IV 05/06/24 11:15 Norepinephrine Bitartrate 32 mg/ Sodium Chloride 250 ml @ 0.938 mls/ hr Q24H IV 05/06/24 13:00 05/06/24 23:08 0.938 MLS/HR Linezolid 300 ml @ 300 mls/hr Q12H IV 05/06/24 17:00 05/08/24 05:29 300 MLS/HR Methylprednisolone Sodium Succinate 40 mg BID IV 05/06/24 22:00 05/08/24 09:37 40 MG Zirconium Oxide 10 gm TID PO 05/07/24 14:00 05/09/24 06:01 05/08/24 06:12 10 GM Morphine Sulfate 2 mg Q4HPRN PRN IV 05/08/24 09:30 Examination General Appearance: Alert, Oriented X2, awake and arousable Patient is bleeding from the site of his face near the earlobe Respiratory: Decreased breath sounds at the bases, occasional rhonchi Cardiovascular: Other (Bradycardic heart rate is 50) Abdominal: Normal bowel sounds;soft NT Extremities: 2+ pedal edema, 1+ UE edema laboratory and microbiology Laboratory Tests 05/08/24 05:18 Test 05/08/24 05:18 Range/Units Serum Glucose 195 H 74-106 mg/dL Microbiology Date/Time Source Procedure Growth Status 05/07/24 00:00 Voided Urine Urine Culture - Preliminary Resulted 05/06/24 14:10 Blood Blood Culture - Preliminary NO GROWTH AFTER 24 HOURS OF INCUBATION. Resulted 05/06/24 12:03 Nose MRSA Screen - Final Methicillin Resistant S.aureus Complete Problem List/Assessment/Plan Problem List/Assessment/Plan (1) GI bleed (2) Volume overload (3) CHF exacerbation (4) Elevated troponin (5) Hypotension (6) Pulmonary edema (7) Bradycardia (8) Generalized weakness (9) Acute renal failure (10) Hyperkalemia (11) Lactic acidosis (12) Elevated liver enzymes Patient has developed coagulopathy related to Xarelto and aspirin use Continue to monitor labs, had transfused 1 unit FFP If hemoglobin drops below seven we will transfuse PRBC, Today Hb is 8.2 Continue to monitor labs and supportive care Protonix 40 mg IV q.12 hours Elevated liver enzymes likely related to liver congestion due to cardiac issues and fluid overload Hepatitis panel is Negative, right upper quadrant ultrasound Supportive care Patient is currently not stable for an endoscopy and we will continue to monitor labs Ice chips clear liquid diet advance as tolerated Thank you so much for the opportunity to consult on your patient. GI team will follow the patient. In case of any questions or concerns please feel free to reach out. Case discussed with Dr. Consuelo Duran. The patient and caregiver team agreed to the plan. Plan discussed with: Patient Dietary Evaluation Review Comments: 1) Ensure clear 8floz TID 2) Advance diet as medically feasible 3) Consider [id number] + renal standard diet as goal diet 4) Continue current plan of care Expected Outcomes/Goals: Pt will meet 75% estimated needs Fu 2-3 days BEL LANCE RESIDENT May 08, 2024 11:46
--- NOTE | 2024-05-08 11:56 | DVHINCON2 ---
Date of service: May 08, [address] Allen Reason for Consultation bladder outlet obstruction History of Present Illness History Source: RN Notes, MD Notes, Old Records Exam Limitations: No limitations HPI 68 yo male on dialysis thrice weekly. Dr. Allen was endodontics dentist for the weekend and placed a mohegan tip starkey catheter when staff was unable to. patient was not in retention however strict I&Os were needed. Past Medical History Patient Family History: Patient reports no known family medical history. H&P Exam Vital Signs Vital Signs Date Time Temp Pulse Resp B/P (MAP) Pulse Ox O2 Delivery O2 Flow Rate FiO2 05/08/24 08:00 82 16 97 Oxymizer 5 N/A 05/08/24 07:00 105/61 (76) 05/08/24 04:00 97.7 97.7 Labs/Xrays [place] [address] Ph: [phone] DIAGNOSTIC IMAGING Diagnostic Imaging Report : [id number] Signed PATIENT: HERRERA LEON ACCT: [id number] UNIT: [id number] : 1955 LOC: OVERFLOW ROOM / BED: [facility] [place]note 3[facility] / A AGE / SEX: 68 / M ADM STATUS: ADM IN SERVICE ORDERING PHYSICIAN: ANDRES OLIVEIRA DO PROCEDURE(s): ABPL - CT AB PEL WO CON-NO ORAL OR IV REASON: poss rectal bleed ORDER NUMBER(s): [id number], ACCESSION NUMBER(s): [id number] Procedure: CT CT AB PEL WO CON-NO ORAL OR IV 05/06/2024 10:03 AM Indication: poss rectal bleed Comparison Study: None Technique: Axial images were obtained and reformatted in coronal and sagittal planes. All CT scans at this medical facility are performed using dose modulation techniques as appropriate to a performed exam including the following: Automated exposure control was utilized; adjustment of the MA and/or KV according to patient size; and use of iterative reconstruction technique. CT Dose: CTDI volume is 23.99 mGy. Dose-length product is 1150.33 mGy*cm FINDINGS: Lower Chest: Moderate bilateral pleural effusions with adjacent pulmonary opacities. Scattered ground-glass opacities are seen in the right lower lobe. Mild cardiomegaly. No pericardial effusion Hepatobiliary: Liver is unremarkable. No intrahepatic or extrahepatic ductal dilatation. Homogeneous dense material seen in gallbladder lumen may represent vicarious excretion of contrast from prior IV contrast administration. Correlate with history. Mild perihepatic and pericholecystic fluid noted. Mild gallbladder wall edema likely related to CHF. Spleen: Unremarkable. Pancreas: Unremarkable. Adrenal Glands: Unremarkable. tract: The kidneys are normal in size bilaterally without hydronephrosis or nephrolithiasis. Mild diffuse bladder wall thickening could be at least in part due to lack of distention. GI tract: The stomach is grossly normal in appearance. No evidence of small bowel obstruction. Scattered colonic diverticula are noted without evidence of diverticulitis. The appendix is normal. Lymphatics: No mesenteric, retroperitoneal or periportal lymphadenopathy. Vasculature: The abdominal aorta is normal in in caliber. Pelvic Organs: Unremarkable Bones/soft tissues: No acute abnormality. Multilevel degenerative changes of the lumbar spine noted. Moderate body wall edema. Other: None. IMPRESSION: 1. CHF with evidence of volume overload, moderate bilateral pleural effusions trace upper abdominal ascites and body wall edema. 2. Few colonic diverticula with no evidence of diverticulitis. Rectum is grossly unremarkable unenhanced study.Mild 3. Gallbladder wall edema likely related to CHF. Further evaluation with gallbladder ultrasound could be completed there is clinical concern for cholecystitis. ATED BY: JODI RANDALL MD DICTATED DATE/TIME: 05/06/24 1112 SIGNED BY: JODI RANDALL MD SIGNED DATE/TIME: 05/06/24 1112 CC: [place] [address] Ph: [phone] DIAGNOSTIC IMAGING Diagnostic Imaging Report : [id number] Signed PATIENT: HERRERA LEON ACCT: [id number] UNIT: [id number] : 1955 LOC: OVERFLOW ROOM / BED: [address] [place] [address] / A AGE / SEX: 68 / M ADM STATUS: ADM IN SERVICE 1010 ORDERING PHYSICIAN: LUISA JOHNSON MD PROCEDURE(s): KIDUS - KIDNEY REASON: lucy ORDER NUMBER(s): [id number], ACCESSION NUMBER(s): [id number] EXAM: US Retroperitoneal Limited, Renal CLINICAL INDICATION: lucy TECHNIQUE: Real-time limited ultrasound of the retroperitoneum with image documentation. COMPARISON: None FINDINGS: RIGHT KIDNEY: Increased renal echogenicity, bilaterally could represent renal parenchymal disease. No stones. No hydronephrosis. Right kidney measures 9.3 cm. LEFT KIDNEY: Left kidney measures 8.4 cm. BLADDER: Urinary bladder is not fully distended. FREE FLUID: Ascites in the right lower abdominal quadrant and left lower abdominal quadrant. PLEURAL SPACE: Right pleural effusion. OTHER FINDINGS: . IMPRESSION: Increased renal echogenicity, bilaterally could represent renal parenchymal disease. ATED BY: FAHAD REID MD DICTATED DATE/TIME: 05/06/24 111 SIGNED BY: FAHAD REID MD SIGNED DATE/TIME: 05/06/241114 CC: Labs Test 05/08/24 05:19 05/08/24 05:18 05/07/24 00:00 05/06/24 19:34 Range/Units POC Glucose 168 H 70-106 mg/dl White Blood Count 8.5 # 4.4-10.8 10^3/uL Red Blood Count 2.57 L 4.5-5.90 10^6/uL Hemoglobin 8.2 L 13.5-17.5 g/dL Hematocrit 24.7 L 41.0-53.0 % Mean Corpuscular Volume 96.4 80.0-100.0 fL Mean Corpuscular Hemoglobin 31.9 28.0-32.0 pg Mean Corpuscular Hemoglobin Concent 33.1 32.0-36.0 g/dL Red Cell Distribution Width 19.5 H 11.8-14.3 % Platelet Count 249 140-450 10^3/uL Mean Platelet Volume 9.7 6.9-10.8 fL Neutrophils (%) (Auto) 95.3 H 37.0-80.0 % Lymphocytes (%) (Auto) 1.7 L 10.0-50.0 % Monocytes (%) (Auto) 2.9 0.0-12.0 % Eosinophils (%) (Auto) 0.0 0.0-7.0 % Basophils (%) (Auto) 0.1 0.0-2.0 % Neutrophils # (Auto) 8.1 1.6-8.6 10 ^3/uL Lymphocytes # (Auto) 0.1 L 0.4-5.4 10 ^3/uL Monocytes # (Auto) 0.2 0-1.3 10 ^3/uL Eosinophils # (Auto) 0 0-0.8 10 ^3/uL Basophils # (Auto) 0 0-0.2 10 ^3/uL Nucleated Red Blood Cells 0.3 % Prothrombin Time 17.7 H 9.3-11.8 sec Prothrombin Time INR 1.77 H 0.9-1.15 Activated Partial Thromboplast Time 30.2 24.5-34.5 SEC Sodium Level 139 136-145 mmol/L Potassium Level 5.7 *H 3.5-5.1 mmol/L Chloride Level 101 98-107 mmol/L Carbon Dioxide Level 22 20-31 mmol/L Anion Gap 16 H 5-15 Blood Urea Nitrogen 148 *H 9-23 mg/dL Creatinine 6.46 H 0.700-1.30 mg/dL Glomerular Filtration Rate Calc 9 >90 mL/min BUN/Creatinine Ratio 22.9 H 10.0-20.0 Serum Glucose 195 H 74-106 mg/dL Calcium Level 8.5 L 8.7-10.4 mg/dL Phosphorus Level 10.8 H 2.4-5.1 mg/dL Magnesium Level 3.1 H 1.6-2.6 mg/dL Iron Level 34 L 65-175 ug/dL Total Iron Binding Capacity 236 L 250-425 ug/dL Percent Iron Saturation 14.4 L 20-55 % Total Bilirubin 6.1 H 0.2-1.0 mg/dL Aspartate Amino Transferase (AST) 211 H 13-40 U/L Alanine Aminotransferase (ALT) 42 H 7-40 U/L Alkaline Phosphatase 600 H 46-116 U/L Parathyroid Hormone (Intact) 801.6 H 18.4-80.1 pg/mL Hepatitis A IgM Antibody Negative Hepatitis B Surface Antigen Negative Negative Hepatitis B Core IgM Antibody Negative Negative Hepatitis C Antibody Negative Negative Urine Color Red Yellow Urine Clarity Ex.turbid Clear Urine pH 6.5 5.0-9.0 Urine Specific [place] 1.018 1.001-1.035 Urine Protein 3+ H Negative Urine Ketones Negative Negative Urine Blood 3+ H Negative /uL Urine Nitrite Negative Negative Urine Bilirubin 1+ Negative Urine Urobilinogen Normal Negative mg/dL Urine Leukocyte Esterase Trace Negative /uL Urine RBC 4356 0 - 3 /hpf Urine Microscopic WBC 197 H 0-3 /HPF Urine Squamous Epithelial Cells None seen <5 /hpf Urine Bacteria None seen None Seen /hpf Urine Glucose Trace Normal mg/dL Troponin I High Sensitivity 671 *H </=54 ng/L Test 05/06/24 17:07 05/06/24 12:08 05/06/24 10:38 05/06/24 08:40 Range/Units Blood Gas Specimen Type Arterial Blood Gas Sample Site Left radial Blood Gas Patient Temperature 37.0 Arterial Blood Date Drawn [id number] Arterial Blood pH 7.374 7.350-7.450 Arterial Blood Partial Pressure CO2 28.0 L 35.0-48.0 mmHg Arterial Blood Partial Pressure O2 68.1 L 83.0-108.0 mmHg Arterial Blood HCO3 16.0 L 21.0-28.0 mmol/L Arterial Blood Oxygen Saturation 90.0 L 94.0-98.0 % Arterial Blood Base Excess -8.1 L -2.0-3.0 mmol/L Arterial Blood Oxyhemoglobin 89.2 L 94.0-98.0 % Arterial Blood Carboxyhemoglobin 0.6 0.5-1.5 % Arterial Blood Methemoglobin 0.3 0.0-1.5 % Manuel Test Modified Blood Gas Total Hemoglobin 9.60 L 13.5-17.5 g/dL Blood Gas Liter Flow 50.00 Blood Gas Modality High flow FiO2 % 55.0 Blood Gas Critical Value Read Back Yes Blood Gas Notified Whom Dr. orellana Blood Gas Notified Time [id number] Blood Gas Notified By Kobi phan rrt Lactic Acid Level 4.5 *H 0.4-2.0 mmol/L Hemoglobin A1c 5.7 <5.7 % A1C B-Type Natriuretic Peptide 981.10 0-100 pg/mL Triglycerides Level 94 < 150 mg/dL Cholesterol Level 88 < 200 mg/dL LDL Cholesterol 46 < 100 mg/dL HDL Cholesterol 13 L 40-59 mg/dL Thyroid Stimulating Hormone (TSH) 8.04 H 0.55-4.78 uIU/mL Microbiology Date/Time Source Procedure Growth Status 05/07/24 00:00 Voided Urine Urine Culture - Preliminary Resulted 05/06/24 14:10 Blood Blood Culture - Preliminary NO GROWTH AFTER 24 HOURS OF INCUBATION. Resulted 05/06/24 12:03 Nose MRSA Screen - Final Methicillin Resistant S.aureus Complete Assessment/Plan Problem List: (1) Bladder outlet obstruction (2) Difficult Starkey catheter placement Plan keep starkey for now dialysis per nephro outpt cystoscopy TBA Plan discussed with: PEYTON Skaggs NP May 08, 2024 11:56
[2024-05-08] MEDS: phytonadione 5 MG in SODIUM CHL 0.9% 50 ML IV ONE (12:06)
[2024-05-08] MEDS: MORPHINE SULFATE INJ 2 MG/ml SYRG IV PRN (13:16)
--- NOTE | 2024-05-08 15:02 | MEDREC ---
[facility] Intervention Section I [facility] Intervention: Review courses of therapy (MRSA SCREEN POSITIVE CONSIDER ADDING MUPIROCIN 2% OINTMENT 1 APPLICATION IN EACH NOSTRIL BID FOR 5 DAYS ) LAURA CASTILLO PHARMACIST May 08, 2024 15:02
[2024-05-08] MEDS: EPOETIN ALFA-EPBX 10,000 UNIT/1ML VIAL SC ONE (22:13)
--- NOTE | 2024-05-08 22:40 | DVHPN2 ---
Progress Note - Dictate Date Seen: May 08, 2024 Medical Necessity Reason Pt with a Central, PICC or Fol: Yes The following are medically ne: Central Line, Starkey Catheter Reason for starkey catheter: Strict I&O Subjective Patient seen and examined at bedside. Remains on supplemental oxygen Overnight events reviewed. vital signs Vital Sign Date Time Temp Pulse Resp B/P (MAP) Pulse Ox O2 Delivery O2 Flow Rate FiO2 05/08/24 22:13 85 16 105/69 05/08/24 18:30 92 05/08/24 18:27 Oxymizer 4.0 05/08/24 18:27 N/A 05/08/24 16:00 96.4 96.4 Total Intake and Output 05/07/24 05/07/24 05/08/24 15:00 23:00 07:00 Intake Total 417.688 ml 726.688 ml 900.752 ml Output Total 500 ml 275 ml Balance 417.688 ml 226.688 ml 625.752 ml medications Current Medications Medications Dose Ordered Sig/Eloy Route Start Time Stop Time Status Last Admin Dose Admin Nitroglycerin 0.4 mg Q5MINP PRN SL 05/06/24 10:45 Morphine Sulfate 2 mg Q30M PRN IV 05/06/24 10:45 Pantoprazole Sodium 40 mg BID IV 05/06/24 22:00 05/08/24 21:38 40 MG Ondansetron HCl 4 mg Q4HPRN PRN IV 05/06/24 11:00 05/06/24 15:41 4 MG Meropenem 50 ml @ 17 mls/hr Q12HR IV 05/06/24 22:00 05/08/24 21:38 17 MLS/HR Diagnostic Test (Pha) 1 strip Q6HR 05/06/24 12:00 05/08/24 18:39 1 STRIP Insulin Human Regular Q6HR SC 05/06/24 12:00 05/08/24 18:38 4 UNITS Dextrose 50 ml UD PRN IV 05/06/24 11:15 Norepinephrine Bitartrate 32 mg/ Sodium Chloride 250 ml @ 0.938 mls/ hr Q24H IV 05/06/24 13:00 05/06/24 23:08 0.938 MLS/HR Linezolid 300 ml @ 300 mls/hr Q12H IV 05/06/24 17:00 05/08/24 16:30 300 MLS/HR Methylprednisolone Sodium Succinate 40 mg BID IV 05/06/24 22:00 05/08/24 21:38 40 MG Zirconium Oxide 10 gm TID PO 05/07/24 14:00 05/09/24 06:01 05/08/24 21:39 10 GM Morphine Sulfate 2 mg Q4HPRN PRN IV 05/08/24 09:30 05/08/24 22:13 2 MG objective Gen.: Patient lying in bed in no apparent distress. On supplemental oxygen. Head: Normocephalic, atraumatic. Eyes: EOMI/PERRLA. Ears: Normal hearing. Normal anatomy. Neck/trachea: Trachea midline, supple. Nose: Normal external anatomy. Mouth: Moist mucous membranes. Chest: Decreased air entry bilaterally. No wheezing or rhonchi. Cardiovascular: Positive S1, positive S2. Regular rate and rhythm. Abdomen: Positive bowel sounds in all 4 quadrants. Soft, non-tender, non- distended. : Deferred. Rectal: Deferred. Skin: Warm, dry. Intact. Extremities: 2+ radial pulses bilaterally. No lower extremity edema. Neuro: Awake, alert, oriented x3. No gross motor or sensory deficits. Cranial nerves II through XII intact. Gait not assessed. laboratory and microbiology Laboratory Tests 05/08/24 05:18 Test 05/08/24 05:18 Range/Units Serum Glucose 195 H 74-106 mg/dL Assessment/Plan Impression: Acute hypoxic respiratory failure Dependence on supplemental oxygen Acute COPD exacerbation CHF exacerbation Metabolic acidosis Obesity BMI 39.4 Events: Remains on supplemental oxygen, 4 LPM Oxymizer Taper O2 as tolerated Monitor dressing as hemorrhage from femoral Richi/central line sites. On pressors for hemodynamic support Levophed 2 mcg/min Titrate to keep MAP above 65 mmHg/SBP above 90 mmHg. Improved pressor requirements Continue steroids Continue antibiotics Incentive spirometry Discontinue Bumex Monitor renal function Monitor electrolytes. Supplement as necessary. Monitor ins and outs. HD per Nephrology Nephrology recs appreciated. Monitor hemoglobin closely - 8.2 g/dL FFP transfusion yesterday Monitor PT/INR. Labs and imaging reviewed. Rest of plan as noted below. Plan: Continue supplemental oxygen Titrate to keep O2 sats above 92%. S/p right femoral Richi cath for HD + central line for administration of pressors On pressors for hemodynamic support Titrate to keep MAP above 65 mmHg/SBP above 90 mmHg. Continue antibiotics Continue steroids - Solu-Medrol IV 40 mg q.12 hours Incentive spirometry Monitor renal function. Monitor electrolytes. Supplement as necessary. Monitor ins and outs. Nephrology recs appreciated. DVT prophylaxis. Prognosis: Poor given patient's multiple co-morbidities. Condition: Critical Rest of plan per hospitalist and other consultants. A total of 35 minutes of critical care time was spent reviewing the patient record, examining the patient, making a diagnostic and therapeutic plan, discussing this plan with the medical personnel, following up on diagnostic studies and following the patient for clinical stability excluding any and all procedures. At least 50% of this time was spent in direct, [id number] contact. Thank you, Dr. Camarena, for allowing me to participate in this patient's care. Further recommendations will depend on the patient's clinical course. Please do not hesitate to contact me if you have any questions or concerns. This medical document was created using an electronic medical record system with [employer] dictation system. Although these documentations are being carefully reviewed, there may still be some phonetic and typographical changes. The errors are purely typographical, due to imperfection on the software program, and do not reflect any compromise in the patient's medical care. Dietary Evaluation Review Comments: 1) Ensure clear 8floz TID 2) Advance diet as medically feasible 3) Consider [id number] + renal standard diet as goal diet 4) Continue current plan of care Expected Outcomes/Goals: Pt will meet 75% estimated needs Fu 2-3 days Plan discussed with: Other (KIM Ferrara/Ruth) Critical Care Time(min): 35 WENCESLAO ESCOBAR MD May 08, 2024 22:40
[2024-05-09] VITALS (101 sets, daily range): BP systolic 86–119; BP diastolic 47–73; PULSE 66–128; RESP 5–22; TEMP 96.8–98.8; O2SAT 87–100
[2024-05-09] MEDS: MORPHINE SULFATE INJ 2 MG/ml SYRG IV PRN (03:25)
[2024-05-09 05:26] LABS: Basophils # (auto) 0 10 ^3/uL (0-0.2); Eosinophils # (auto) 0 10 ^3/uL (0-0.8); Monocytes # (auto) 0.5 10 ^3/uL (0-1.3); Nucleated Red Blood Cells % 0.2 %
[2024-05-09 05:30] LABS: Hematocrit 24.4 % (41.0-53.0); Lymphocytes # (auto) 0.1 10 ^3/uL (0.4-5.4); Mean Corpuscular Hemoglobin 31.6 pg (28.0-32.0); Mean Corpuscular Hgb Conc. 32.7 g/dL (32.0-36.0); Mean Corpuscular Volume 96.6 fL (80.0-100.0); Platelet Count (auto) 215 10^3/uL (140-450); Red Blood Cells 2.53 10^6/uL (4.5-5.90); Red Cell Distribution Width 19.5 % (11.8-14.3); White Blood Cell 12.7 10^3/uL (4.4-10.8)
[2024-05-09 05:35] LABS: Anion Gap 17 (5-15); Carbon Dioxide 25 mmol/L (20-31); Chloride 99 mmol/L (98-107); Potassium 5.1 mmol/L (3.5-5.1); Sodium 141 mmol/L (136-145); Total Protein 6.5 g/dL (5.7-8.2)
[2024-05-09 05:38] LABS: INR 1.54 (0.9-1.15); Prothrombin Time 15.6 sec (9.3-11.8)
[2024-05-09 05:59] LABS: Alanine Aminotransferase 47 U/L (7-40); Albumin 2.9 g/dL (3.2-4.8); Alkaline Phosphatase 547 U/L (46-116); Aspartate Aminotransferase 283 U/L (13-40); Bilirubin, Total 6.5 mg/dL (0.2-1.0); Blood Urea Nitrogen 119 mg/dL (9-23); Calcium 8.5 mg/dL (8.7-10.4); Glucose 140 mg/dL (74-106); Magnesium 2.8 mg/dL (1.6-2.6)
[2024-05-09 08:07] LABS: Complement C3 78 mg/dL (82-167); Immunoglobulin A 728 mg/dL (61-437); Immunoglobulin G, Serum 1730 mg/dL (603-1613); Immunoglobulin M 161 mg/dL (20-172)
--- NOTE | 2024-05-09 11:05 | DVHPN2 ---
Progress Note Date Seen: May 09, 2024 Medical Necessity Reason Pt with a Central, PICC or Fol: Yes The following are medically ne: Central Line, Starkey Catheter Reason for starkey catheter: Strict I&O Subjective Other Systems: Patient seen and examined by myself today in follow-up Patient examined hemodialysis, blood pressure stable Objective vital signs Vital Sign Date Time Temp Pulse Resp B/P (MAP) Pulse Ox O2 Delivery O2 Flow Rate FiO2 05/09/24 09:00 97.2 80 7 99/57 (71) 97 207.0 05/09/24 08:00 Oxymizer 4 N/A Total Intake and Output 05/08/24 05/08/24 05/09/24 15:00 23:00 07:00 Intake Total 117.004 ml 493.690 ml 443.813 ml Output Total 250 ml 25 ml Balance 117.004 ml 243.690 ml 418.813 ml medications Current Medications Medications Dose Ordered Sig/Eloy Route Start Time Stop Time Status Last Admin Dose Admin Nitroglycerin 0.4 mg Q5MINP PRN SL 05/06/24 10:45 Morphine Sulfate 2 mg Q30M PRN IV 05/06/24 10:45 05/09/24 03:25 2 MG Pantoprazole Sodium 40 mg BID IV 05/06/24 22:00 05/09/24 10:58 40 MG Ondansetron HCl 4 mg Q4HPRN PRN IV 05/06/24 11:00 05/06/24 15:41 4 MG Meropenem 50 ml @ 17 mls/hr Q12HR IV 05/06/24 22:00 05/09/24 10:58 17 MLS/HR Diagnostic Test (Pha) 1 strip Q6HR 05/06/24 12:00 05/09/24 05:41 1 STRIP Insulin Human Regular Q6HR SC 05/06/24 12:00 05/09/24 05:50 2 UNITS Dextrose 50 ml UD PRN IV 05/06/24 11:15 Norepinephrine Bitartrate 32 mg/ Sodium Chloride 250 ml @ 0.938 mls/ hr Q24H IV 05/06/24 13:00 05/06/24 23:08 0.938 MLS/HR Linezolid 300 ml @ 300 mls/hr Q12H IV 05/06/24 17:00 05/09/24 04:32 300 MLS/HR Methylprednisolone Sodium Succinate 40 mg BID IV 05/06/24 22:00 05/09/24 10:58 40 MG Morphine Sulfate 2 mg Q4HPRN PRN IV 05/08/24 09:30 05/08/24 22:13 2 MG Examination: LUNGS:Normal, CVS:Normal, MSK:Abnormal laboratory and microbiology Laboratory Tests 05/09/24 04:51 Test 05/09/24 04:51 Range/Units Serum Glucose 140 H 74-106 mg/dL Microbiology Date/Time Source Procedure Growth Status 05/07/24 00:00 Voided Urine Urine Culture - Preliminary Resulted 05/06/24 14:10 Blood Blood Culture - Preliminary NO GROWTH AFTER 48 HOURS OF INCUBATION. 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 hemodialysis IV Levophed for blood pressure support Discontinue diuresis Fluid restrictions Renal diet GI consult Cardiology consult We will continue to follow up Plan discussed with: Patient Dietary Evaluation Review Comments: 1) Ensure clear 8floz TID 2) Advance diet as medically feasible 3) Consider [id number] + renal standard diet as goal diet 4) Continue current plan of care Expected Outcomes/Goals: Pt will meet 75% estimated needs Fu 2-3 days KERMIT HARKINS MD May 09, 2024 11:05
[2024-05-09] MEDS: SODIUM CHL 0.9% 1000 ML BAG XX ONE (11:15)
--- NOTE | 2024-05-09 12:09 | DVHPN2 ---
Subjective He is still on Levophed drip Still edematous Status post 1st hemodialysis session yesterday and scheduled for 2nd session today Still bleeding from the right groin Richi catheter and still has hematuria INR 1.5 Changes from previous H/P or p: Changes Gastrointestinal: Abdominal Pain Objective Vitals Vital Signs Date Time Temp Pulse Resp B/P (MAP) Pulse Ox O2 Delivery O2 Flow Rate FiO2 05/09/24 10:00 10 95 Oxymizer 4 N/A 05/09/24 09:00 97.2 80 99/57 (71) 207.0 Intake/Output Intake and Output 05/09/24 07:00 Intake Total 1054.507 ml Output Total 275 ml Balance 779.507 ml Intake Oral 250 ml IV Total 804.507 ml Output Urine Total 275 ml General Appearance: Alert Lungs: Other (B Rhonchi) Extremities: Other (2+ edema diffuse) Medications Current Medications Medications Dose Ordered Sig/Eloy Route Start Time Stop Time Status Last Admin Dose Admin Nitroglycerin 0.4 mg Q5MINP PRN SL 05/06/24 10:45 Morphine Sulfate 2 mg Q30M PRN IV 05/06/24 10:45 05/09/24 03:25 2 MG Pantoprazole Sodium 40 mg BID IV 05/06/24 22:00 05/09/24 10:58 40 MG Ondansetron HCl 4 mg Q4HPRN PRN IV 05/06/24 11:00 05/06/24 15:41 4 MG Meropenem 50 ml @ 17 mls/hr Q12HR IV 05/06/24 22:00 05/09/24 10:58 17 MLS/HR Diagnostic Test (Pha) 1 strip Q6HR 05/06/24 12:00 05/09/24 05:41 1 STRIP Insulin Human Regular Q6HR SC 05/06/24 12:00 05/09/24 05:50 2 UNITS Dextrose 50 ml UD PRN IV 05/06/24 11:15 Norepinephrine Bitartrate 32 mg/ Sodium Chloride 250 ml @ 0.938 mls/ hr Q24H IV 05/06/24 13:00 05/06/24 23:08 0.938 MLS/HR Linezolid 300 ml @ 300 mls/hr Q12H IV 05/06/24 17:00 05/09/24 04:32 300 MLS/HR Methylprednisolone Sodium Succinate 40 mg BID IV 05/06/24 22:00 05/09/24 10:58 40 MG Morphine Sulfate 2 mg Q4HPRN PRN IV 05/08/24 09:30 05/08/24 22:13 2 MG Mupirocin 1 applic BID EACHNOSTRI 05/09/24 22:00 05/14/24 21:59 Laboratory Results Laboratory Tests 05/09/24 04:51 Chemistry Test 05/09/24 04:51 Albumin 2.9 g/dL (3.2-4.8) L Calcium Level 8.5 mg/dL (8.7-10.4) L Magnesium Level 2.8 mg/dL (1.6-2.6) H Total Protein 6.5 g/dL (5.7-8.2) Coagulation Test 05/09/24 04:51 Prothrombin Time 15.6 sec (9.3-11.8) H Prothrombin Time INR 1.54 (0.9-1.15) H LFT Test 05/09/24 04:51 Alanine Aminotransferase (ALT) 47 U/L (7-40) H Alkaline Phosphatase 547 U/L (46-116) H Aspartate Amino Transferase (AST) 283 U/L (13-40) H Total Bilirubin 6.5 mg/dL (0.2-1.0) H Urinalysis Test 05/07/24 00:00 Urine Color Red (Yellow) Urine Clarity Ex.turbid (Clear) Urine pH 6.5 (5.0-9.0) Urine Specific [place] 1.018 (1.001-1.035) Urine Protein 3+ (Negative) H Urine Ketones Negative (Negative) Urine Blood 3+ /uL (Negative) H Urine Nitrite Negative (Negative) Urine Bilirubin 1+ (Negative) Urine Urobilinogen Normal mg/dL (Negative) Urine Leukocyte Esterase Trace /uL (Negative) Urine RBC 4356 /hpf (0 - 3) Urine Microscopic WBC 197 /HPF (0-3) H Urine Squamous Epithelial Cells None seen /hpf (<5) Urine Bacteria None seen /hpf (None Seen) Urine Glucose Trace mg/dL (Normal) Microbiology Microbiology Date/Time Source Procedure Growth Status 05/07/24 00:00 Voided Urine Urine Culture - Preliminary Presumptive Nia albicans Resulted 05/06/24 14:10 Blood Blood Culture - Preliminary NO GROWTH AFTER 48 HOURS OF INCUBATION. Resulted 05/06/24 12:03 Nose MRSA Screen - Final Methicillin Resistant S.aureus Complete Assessment/Plan Assessment/Plan Severe sepsis with septic shock Bradycardia Possible GI bleed Acute on chronic kidney disease Acute heart failure, possibly systolic Pulmonary edema Hyperkalemia Anemia, macrocytic History of chronic kidney disease stage 3 Elevated liver function tests with a total bilirubin of 5.3 Lactic acidosis NSTEMI Urinary retention History of heart failure and cardiomyopathy History of CVA Atrial fibrillation on Xarelto Mixed hyperlipidemia Type 2 diabetes BPH Recent sepsis and respiratory failure History of gout GERD Plan Admit to ICU Dopamine drip Oxygen as needed Calcium gluconate Lokelma Keep NPO now Nephrology consult Cardiology consult Echocardiogram Urology consult because a Brown catheter could not be inserted Possible urinary retention Broad-spectrum antibiotics meropenem and Zyvox 05/07/24: Hyperkalemia: Protocol Worsening CKD: HD per nephrology Dialysis catheter planned Transfuse FFP Vit K IV antibiotics: Meropenem & Zyvox IV steroids Vasopressors prn EF 25-30% Hematuria Urinary retention Coagulopathy due to sepsis? 05/08/2024: Give morphine p.r.n. for the pain Vitamin K 5 mg IV x1 Hemodialysis scheduled for today Levophed drip as needed Bumex drip IV antibiotics with meropenem and linezolid Infectious Disease consultation Nephrology is on case and following Anemia: Monitor hemoglobin and transfuse as needed 05/09/2024: Coagulopathy: Transfuse 1 unit FFP End-stage renal disease: Hemodialysis again today Sepsis: Continue IV antibiotics with meropenem and Zyvox Septic shock: Continue Levophed drip Hematuria: Urology Service is on case MRSA in nares: Start mupirocin Plan discussed with: Patient My Orders Orders - RONALD SUÁREZ MD Procedure Category Date Status Time Mupirocin 2% Oint PHA 05/09/24 In Process Mrsa Nares (Bactroban 22:00 Date of Service: May 09, 2024 Billing Provider: RONALD SUÁREZ MD Common Visit Codes: NOT BILLABLE RONALD SUÁREZ MD May 09, 2024 12:09
--- NOTE | 2024-05-09 14:02 | DVHPN2 ---
Progress Note Date Seen: May 09, 2024 Resident Creating Document: BEL LANCE RESIDENT Medical Necessity Reason Pt with a Central, PICC or Fol: Yes The following are medically ne: Central Line, Starkey Catheter Reason for satrkey catheter: Strict I&O Subjective Review of Systems 68-year-old male who came from [facility] for low blood pressure and bradycardia and bleeding. The patient has been there since about 2 weeks after what it appears he was discharged from another facility after he had sepsis and respiratory failure and was treated for atrial fibrillation. He is on Xarelto. It is reported that he has a nosebleed and rectal bleeding.The patient says he feels his abdomen is tight. Patient required urology to insert a complex catheter due to prostatic enlargement. Currently patient was seen in [facility]. Patient was on a dopamine drip and he was given treatment for hyperkalemia. Dr. Allen inserted a complex catheter because of urinary retention. Patient is having bleeding from the rectum on presentation but none today. Patient however is bleeding from an ear lobe prick and also from his nose and mouth and appears to have generalized coagulopathy. Patient is a poor historian but he does recall having had a colonoscopy a few years back which he states was negative. Seen examined at bedside, complaining of abdominal pain. Patient is bleeding from nose and IG. 1 unit of FFP will be transferred. Objective vital signs Vital Sign Date Time Temp Pulse Resp B/P (MAP) Pulse Ox O2 Delivery O2 Flow Rate FiO2 05/09/24 13:17 85 15 95/49 05/09/24 12:30 98.6 92 209.5 05/09/24 12:00 Oxymizer 3 N/A Total Intake and Output 05/08/24 05/08/24 05/09/24 15:00 23:00 07:00 Intake Total 117.004 ml 493.690 ml 443.813 ml Output Total 250 ml 25 ml Balance 117.004 ml 243.690 ml 418.813 ml medications Current Medications Medications Dose Ordered Sig/Eloy Route Start Time Stop Time Status Last Admin Dose Admin Nitroglycerin 0.4 mg Q5MINP PRN SL 05/06/24 10:45 Morphine Sulfate 2 mg Q30M PRN IV 05/06/24 10:45 05/09/24 03:25 2 MG Pantoprazole Sodium 40 mg BID IV 05/06/24 22:00 05/09/24 10:58 40 MG Ondansetron HCl 4 mg Q4HPRN PRN IV 05/06/24 11:00 05/06/24 15:41 4 MG Meropenem 50 ml @ 17 mls/hr Q12HR IV 05/06/24 22:00 05/09/24 10:58 17 MLS/HR Diagnostic Test (Pha) 1 strip Q6HR 05/06/24 12:00 05/09/24 12:00 1 STRIP Insulin Human Regular Q6HR SC 05/06/24 12:00 05/09/24 13:15 3 UNITS Dextrose 50 ml UD PRN IV 05/06/24 11:15 Norepinephrine Bitartrate 32 mg/ Sodium Chloride 250 ml @ 0.938 mls/ hr Q24H IV 05/06/24 13:00 05/06/24 23:08 0.938 MLS/HR Linezolid 300 ml @ 300 mls/hr Q12H IV 05/06/24 17:00 05/09/24 04:32 300 MLS/HR Methylprednisolone Sodium Succinate 40 mg BID IV 05/06/24 22:00 05/09/24 10:58 40 MG Morphine Sulfate 2 mg Q4HPRN PRN IV 05/08/24 09:30 05/09/24 13:17 2 MG Mupirocin 1 applic BID EACHNOSTRI 05/09/24 22:00 05/14/24 21:59 Examination General Appearance: Alert, Oriented X2, awake and arousable Patient is bleeding from the site of his face near the earlobe Respiratory: Decreased breath sounds at the bases, occasional rhonchi Cardiovascular: Other (Bradycardic heart rate is 50) Abdominal: Normal bowel sounds;soft NT Extremities: 2+ pedal edema, 1+ UE edema laboratory and microbiology Laboratory Tests 05/09/24 04:51 Test 05/09/24 04:51 Range/Units Serum Glucose 140 H 74-106 mg/dL Microbiology Date/Time Source Procedure Growth Status 05/07/24 00:00 Voided Urine Urine Culture - Preliminary Presumptive Nia albicans Resulted 05/06/24 14:10 Blood Blood Culture - Preliminary NO GROWTH AFTER 48 HOURS OF INCUBATION. Resulted 05/06/24 12:03 Nose MRSA Screen - Final Methicillin Resistant S.aureus Complete Problem List/Assessment/Plan Problem List/Assessment/Plan (1) GI bleed (2) Volume overload (3) CHF exacerbation (4) Elevated troponin (5) Hypotension (6) Pulmonary edema (7) Bradycardia (8) Generalized weakness (9) Acute renal failure (10) Hyperkalemia (11) Lactic acidosis (12) Elevated liver enzymes (13) Nose bleeding (14) likely drug-induced liver injury due to atorvastatin and amiodarone Patient has developed coagulopathy related to Xarelto and aspirin use Continue to monitor labs, Plan to transfuse 1 unit FFP today If hemoglobin drops below seven we will transfuse PRBC, Today Hb is 8.0 Continue to monitor labs and supportive care Protonix 40 mg IV q.12 hours Elevated liver enzymes likely related to liver congestion due to cardiac issues and fluid overload Hepatitis panel is Negative, right upper quadrant ultrasound Supportive care Patient is currently not stable for an endoscopy and we will continue to monitor labs Ice chips clear liquid diet advance as tolerated Ordered YARA indirect Ordered ferritin D/C atorvastatin, Liver ultrasound ordered Thank you so much for the opportunity to consult on your patient. GI team will follow the patient. In case of any questions or concerns please feel free to reach out. Case discussed with Dr. Consuelo Duran. The patient and caregiver team agreed to the plan. Plan discussed with: Patient Dietary Evaluation Review Comments: 1) Ensure clear 8floz TID 2) Advance diet as medically feasible 3) Consider [id number] + renal standard diet as goal diet 4) Continue current plan of care Expected Outcomes/Goals: Pt will meet 75% estimated needs Fu 2-3 days BEL LANCE RESIDENT May 09, 2024 14:02
[2024-05-09 14:06] LABS: Anti-Centromere B Antibody <0.2 AI (0.0-0.9); Anti-Jo-1 Antibody <0.2 AI (0.0-0.9); Anti-dsDNA Antibody 1 IU/mL (0-9); Antichromatin Antibody <0.2 AI (0.0-0.9); Antiscleroderma-70 Antibody <0.2 AI (0.0-0.9); RNP Antibody 0.2 AI (0.0-0.9); Sjogren's Anti-SS-A Antibody <0.2 AI (0.0-0.9); Sjogren's Anti-SS-B Antibody <0.2 AI (0.0-0.9); Smith Antibody <0.2 AI (0.0-0.9)
[2024-05-09] MEDS: ALBUMIN 25% 100 ML IV ONE (17:07)
--- NOTE | 2024-05-09 21:13 | DVHPN2 ---
Progress Note - Dictate Date Seen: May 09, 2024 Medical Necessity Reason Pt with a Central, PICC or Fol: Yes The following are medically ne: Central Line, Starkey Catheter Reason for starkey catheter: Strict I&O Subjective Patient seen and examined at bedside. Remains on supplemental oxygen Overnight events reviewed. vital signs Vital Sign Date Time Temp Pulse Resp B/P (MAP) Pulse Ox O2 Delivery O2 Flow Rate FiO2 05/09/24 20:20 97.3 81 10 110/67 97.3 05/09/24 20:00 99 Nasal Cannula* 3 32 Total Intake and Output 05/08/24 05/08/24 05/09/24 15:00 23:00 07:00 Intake Total 117.004 ml 493.690 ml 443.813 ml Output Total 250 ml 25 ml Balance 117.004 ml 243.690 ml 418.813 ml medications Current Medications Medications Dose Ordered Sig/Eloy Route Start Time Stop Time Status Last Admin Dose Admin Nitroglycerin 0.4 mg Q5MINP PRN SL 05/06/24 10:45 Morphine Sulfate 2 mg Q30M PRN IV 05/06/24 10:45 05/09/24 03:25 2 MG Pantoprazole Sodium 40 mg BID IV 05/06/24 22:00 05/09/24 10:58 40 MG Ondansetron HCl 4 mg Q4HPRN PRN IV 05/06/24 11:00 05/06/24 15:41 4 MG Meropenem 50 ml @ 17 mls/hr Q12HR IV 05/06/24 22:00 05/09/24 10:58 17 MLS/HR Diagnostic Test (Pha) 1 strip Q6HR 05/06/24 12:00 05/09/24 18:00 1 STRIP Insulin Human Regular Q6HR SC 05/06/24 12:00 05/09/24 18:00 2 UNITS Dextrose 50 ml UD PRN IV 05/06/24 11:15 Norepinephrine Bitartrate 32 mg/ Sodium Chloride 250 ml @ 0.938 mls/ hr Q24H IV 05/06/24 13:00 05/09/24 18:32 5.625 MLS/HR Linezolid 300 ml @ 300 mls/hr Q12H IV 05/06/24 17:00 05/09/24 18:32 300 MLS/HR Methylprednisolone Sodium Succinate 40 mg BID IV 05/06/24 22:00 05/09/24 10:58 40 MG Morphine Sulfate 2 mg Q4HPRN PRN IV 05/08/24 09:30 05/09/24 13:17 2 MG Mupirocin 1 applic BID EACHNOSTRI 05/09/24 22:00 05/14/24 21:59 objective Gen.: Patient lying in bed in no apparent distress. On supplemental oxygen. Head: Normocephalic, atraumatic. Eyes: EOMI/PERRLA. Ears: Normal hearing. Normal anatomy. Neck/trachea: Trachea midline, supple. Nose: Normal external anatomy. Mouth: Moist mucous membranes. Chest: Decreased air entry bilaterally. No wheezing or rhonchi. Cardiovascular: Positive S1, positive S2. Regular rate and rhythm. Abdomen: Positive bowel sounds in all 4 quadrants. Soft, non-tender, non- distended. : Deferred. Rectal: Deferred. Skin: Warm, dry. Intact. Extremities: 2+ radial pulses bilaterally. No lower extremity edema. Neuro: Awake, alert, oriented x3. No gross motor or sensory deficits. Cranial nerves II through XII intact. Gait not assessed. laboratory and microbiology Laboratory Tests 05/09/24 04:51 Test 05/09/24 04:51 Range/Units Serum Glucose 140 H 74-106 mg/dL Assessment/Plan Impression: Acute hypoxic respiratory failure Dependence on supplemental oxygen Acute COPD exacerbation CHF exacerbation Metabolic acidosis Obesity BMI 39.4 Events: Remains on supplemental oxygen, 4-->3 LPM Oxymizer Taper O2 as tolerated Monitor dressing as hemorrhage from femoral Richi/central line sites. On pressors for hemodynamic support Levophed 4 mcg/min Titrate to keep MAP above 65 mmHg/SBP above 90 mmHg. Continue steroids Continue antibiotics Incentive spirometry Pain control Avoid oversedation HD per Nephrology Monitor renal function Monitor electrolytes. Supplement as necessary. Monitor ins and outs. Nephrology recs appreciated. Monitor hemoglobin closely - 8.0 g/dL Monitor PT/INR. Labs and imaging reviewed. Rest of plan as noted below. Plan: Continue supplemental oxygen Titrate to keep O2 sats above 92%. S/p right femoral Richi cath for HD + central line for administration of pressors On pressors for hemodynamic support Titrate to keep MAP above 65 mmHg/SBP above 90 mmHg. Continue antibiotics Continue steroids - Solu-Medrol IV 40 mg q.12 hours Incentive spirometry Monitor renal function. Monitor electrolytes. Supplement as necessary. Monitor ins and outs. Nephrology recs appreciated. DVT prophylaxis. Prognosis: Poor given patient's multiple co-morbidities. Condition: Critical Rest of plan per hospitalist and other consultants. A total of 35 minutes of critical care time was spent reviewing the patient record, examining the patient, making a diagnostic and therapeutic plan, discussing this plan with the medical personnel, following up on diagnostic studies and following the patient for clinical stability excluding any and all procedures. At least 50% of this time was spent in direct, [id number] contact. Thank you, Dr. Camarena, for allowing me to participate in this patient's care. Further recommendations will depend on the patient's clinical course. Please do not hesitate to contact me if you have any questions or concerns. This medical document was created using an electronic medical record system with [employer] dictation system. Although these documentations are being carefully reviewed, there may still be some phonetic and typographical changes. The errors are purely typographical, due to imperfection on the software program, and do not reflect any compromise in the patient's medical care. Dietary Evaluation Review Comments: 1) Ensure clear 8floz TID 2) Advance diet as medically feasible 3) Consider [id number] + renal standard diet as goal diet 4) Continue current plan of care Expected Outcomes/Goals: Pt will meet 75% estimated needs Fu 2-3 days Plan discussed with: Other (KIM Draper) Critical Care Time(min): 35 WENCESLAO ESCOBAR MD May 09, 2024 21:13
[2024-05-09] MEDS: EPOETIN ALFA-EPBX 10,000 UNIT/1ML VIAL SC ONE (21:16)
--- NOTE | 2024-05-09 21:22 | DVHPN2 ---
Progress Note - Dictate Date Seen: May 09, 2024 Medical Necessity Reason Pt with a Central, PICC or Fol: Yes The following are medically ne: Central Line, Starkey Catheter Reason for starkey catheter: Strict I&O Subjective Patient reports abdominal pain. He is bleeding from the right groin Richi catheter and still has hematuria. S/P first hemodialysis session yesterday and scheduled for second session today. vital signs Vital Sign Date Time Temp Pulse Resp B/P (MAP) Pulse Ox O2 Delivery O2 Flow Rate FiO2 05/09/24 20:20 97.3 81 10 110/67 97.3 05/09/24 20:00 99 Nasal Cannula* 3 32 Total Intake and Output 05/08/24 05/08/24 05/09/24 15:00 23:00 07:00 Intake Total 117.004 ml 493.690 ml 443.813 ml Output Total 250 ml 25 ml Balance 117.004 ml 243.690 ml 418.813 ml medications Current Medications Medications Dose Ordered Sig/Eloy Route Start Time Stop Time Status Last Admin Dose Admin Nitroglycerin 0.4 mg Q5MINP PRN SL 05/06/24 10:45 Morphine Sulfate 2 mg Q30M PRN IV 05/06/24 10:45 05/09/24 03:25 2 MG Pantoprazole Sodium 40 mg BID IV 05/06/24 22:00 05/09/24 10:58 40 MG Ondansetron HCl 4 mg Q4HPRN PRN IV 05/06/24 11:00 05/06/24 15:41 4 MG Meropenem 50 ml @ 17 mls/hr Q12HR IV 05/06/24 22:00 05/09/24 10:58 17 MLS/HR Diagnostic Test (Pha) 1 strip Q6HR 05/06/24 12:00 05/09/24 18:00 1 STRIP Insulin Human Regular Q6HR SC 05/06/24 12:00 05/09/24 18:00 2 UNITS Dextrose 50 ml UD PRN IV 05/06/24 11:15 Norepinephrine Bitartrate 32 mg/ Sodium Chloride 250 ml @ 0.938 mls/ hr Q24H IV 05/06/24 13:00 05/09/24 18:32 5.625 MLS/HR Linezolid 300 ml @ 300 mls/hr Q12H IV 05/06/24 17:00 05/09/24 18:32 300 MLS/HR Methylprednisolone Sodium Succinate 40 mg BID IV 05/06/24 22:00 05/09/24 10:58 40 MG Morphine Sulfate 2 mg Q4HPRN PRN IV 05/08/24 09:30 05/09/24 13:17 2 MG Mupirocin 1 applic BID EACHNOSTRI 05/09/24 22:00 05/14/24 21:59 objective General: Patient is alert, opened his eyes, however did not communicate much, seems like has generalized weakness. HEENT: Normocephalic, atraumatic, Sclera anicteric, conjunctiva clear, No nasal discharge or congestion. Mucous membranes moist, no tonsillar erythema or exudates. Neck: No cervical lymphadenopathy or masses. No neck stiffness. Respiratory: Other (Bilateral rhonchi) Cardiovascular: Other (Bradycardic heart rate is 50) Abdomen: Soft, non-tender, non-distended. Bowel sounds present in all quadrants. No hepatosplenomegaly or masses. Skin: No rash, petechiae, or ecchymosis. Genitourinary: Patient has a folic catheter with bleeding. He has a Richi catheter in place, also has some bleeding with the pressure bandage on. Extremities: Other (+edema in the upper and lower extremities and 3+ edema in the left arm) Neurologic: Patient is alert. Unable to assess. laboratory and microbiology Laboratory Tests 05/09/24 04:51 Test 05/09/24 04:51 Range/Units Serum Glucose 140 H 74-106 mg/dL Assessment/Plan Patient is a 68-year-old male presents to the hospital with: Shock possibly secondary to septic Metabolic acidosis Severe acute kidney injury Hematuria Bladder outlet obstruction, S/P Starkey catheter Elevated INR Pulmonary edema, MSRA Recommendations: Patient has newly started on dialysis, plan to repeat dialysis today Monitor fluid balance. Patient is currently on broad-spectrum antibiotics, Meropenem IV, Linezolid continue for now. Chest x-ray shows Pulmonary congestion, pneumonia cannot be ruled out. Personally reviewed. Consider adding Vancomycin Urology is on board GI consulted for GI bleed Antibiotic status: Meropenem IV [Started on 05/06 - Ongoing] 05/06, Blood cultures showed no growth 05/06, MRSA came back positive Nephrology is on board. 05/07, Urine culture showed 10,000 CFU/mL Yeast Identification to follow. Prognosis guarded Poor critical time spent 35 minutes soon, then counter-plan discussed with the nurse. Thank you for consult. Dietary Evaluation Review Comments: 1) Ensure clear 8floz TID 2) Advance diet as medically feasible 3) Consider [id number] + renal standard diet as goal diet 4) Continue current plan of care Expected Outcomes/Goals: Pt will meet 75% estimated needs Fu 2-3 days Plan discussed with: Other SOLEDAD BENNETT MD May 09, 2024 21:22
[2024-05-09] MEDS: MUPIROCIN 2% OINT 15gm or 22gm FOR MRSA NARES EACHNOSTRI SCH (21:35)
[2024-05-10] VITALS (96 sets, daily range): BP systolic 82–118; BP diastolic 43–76; PULSE 77–88; RESP 8–18; TEMP 97.9–98.8; O2SAT 4–100
[2024-05-10 05:21] LABS: Basophils # (auto) 0 10 ^3/uL (0-0.2); Eosinophils # (auto) 0 10 ^3/uL (0-0.8); Lymphocytes # (auto) 0.2 10 ^3/uL (0.4-5.4); Monocytes # (auto) 0.5 10 ^3/uL (0-1.3); Red Blood Cells 2.64 10^6/uL (4.5-5.90)
[2024-05-10 05:28] LABS: Basophils % (auto) 0.2 % (0.0-2.0); Hematocrit 26.1 % (41.0-53.0); Hemoglobin 8.3 g/dL (13.5-17.5); Mean Corpuscular Hemoglobin 31.4 pg (28.0-32.0); Mean Corpuscular Hgb Conc. 31.7 g/dL (32.0-36.0); Neutrophils # (auto) 15.3 10 ^3/uL (1.6-8.6); Neutrophils % (auto) 95.8 % (37.0-80.0); Nucleated Red Blood Cells % 0.3 %; Platelet Count (auto) 208 10^3/uL (140-450); Red Cell Distribution Width 19.5 % (11.8-14.3)
[2024-05-10 05:37] LABS: INR 1.52 (0.9-1.15); Partial Thromboplastin Time 28.3 SEC (24.5-34.5); Prothrombin Time 15.5 sec (9.3-11.8)
[2024-05-10 05:48] LABS: Albumin 3.4 g/dL (3.2-4.8); Anion Gap 20 (5-15); BUN/Creatinine Ratio 18.9 (10.0-20.0); Calcium 8.8 mg/dL (8.7-10.4); Carbon Dioxide 21 mmol/L (20-31); Glucose 104 mg/dL (74-106); Potassium 4.7 mmol/L (3.5-5.1); Sodium 138 mmol/L (136-145); Total Protein 6.8 g/dL (5.7-8.2)
[2024-05-10 06:07] LABS: Albumin 2.2 g/dL (2.9-4.4); Alpha-1-Globulin 0.4 g/dL (0.0-0.4); Alpha-2-Globulin 0.7 g/dL (0.4-1.0); Protein Total Serum 6.2 g/dL (6.0-8.5)
[2024-05-10 06:17] LABS: Alanine Aminotransferase 53 U/L (7-40); Alkaline Phosphatase 502 U/L (46-116); Aspartate Aminotransferase 332 U/L (13-40); Bilirubin, Total 7.4 mg/dL (0.2-1.0); Chloride 97 mmol/L (98-107); Magnesium 2.7 mg/dL (1.6-2.6)
[2024-05-10 06:18] LABS: Blood Urea Nitrogen 86 mg/dL (9-23)
[2024-05-10 07:07] LABS: Kappa Lite Chain Free Serum 200.1 mg/L (3.3-19.4)
--- NOTE | 2024-05-10 09:42 | DVHPN2 ---
Progress Note - Dictate Date Seen: May 10, 2024 Medical Necessity Reason Pt with a Central, PICC or Fol: Yes The following are medically ne: Central Line, Starkey Catheter Reason for starkey catheter: Strict I&O Subjective Patient is still having some oozing from the right groin Richi catheter. He is still has a hematuria in the Starkey Still on Levophed drip. vital signs Vital Sign Date Time Temp Pulse Resp B/P (MAP) Pulse Ox O2 Delivery O2 Flow Rate FiO2 05/10/24 07:15 98.1 80 8 91/60 (70) 98 208.6 05/10/24 06:00 Nasal Cannula* 3 32 Total Intake and Output 05/09/24 05/09/24 05/10/24 15:00 23:00 07:00 Intake Total 72.564 ml 1022.375 ml 365.314 ml Output Total 10 ml 10 ml Balance 72.564 ml 1012.375 ml 355.314 ml medications Current Medications Medications Dose Ordered Sig/Eloy Route Start Time Stop Time Status Last Admin Dose Admin Nitroglycerin 0.4 mg Q5MINP PRN SL 05/06/24 10:45 Morphine Sulfate 2 mg Q30M PRN IV 05/06/24 10:45 05/09/24 03:25 2 MG Pantoprazole Sodium 40 mg BID IV 05/06/24 22:00 05/09/24 21:34 40 MG Ondansetron HCl 4 mg Q4HPRN PRN IV 05/06/24 11:00 05/06/24 15:41 4 MG Meropenem 50 ml @ 17 mls/hr Q12HR IV 05/06/24 22:00 05/09/24 21:33 17 MLS/HR Diagnostic Test (Pha) 1 strip Q6HR 05/06/24 12:00 05/10/24 05:36 1 STRIP Insulin Human Regular Q6HR SC 05/06/24 12:00 05/09/24 23:49 2 UNITS Dextrose 50 ml UD PRN IV 05/06/24 11:15 Norepinephrine Bitartrate 32 mg/ Sodium Chloride 250 ml @ 0.938 mls/ hr Q24H IV 05/06/24 13:00 05/09/24 18:32 5.625 MLS/HR Linezolid 300 ml @ 300 mls/hr Q12H IV 05/06/24 17:00 05/10/24 04:54 300 MLS/HR Methylprednisolone Sodium Succinate 40 mg BID IV 05/06/24 22:00 05/09/24 21:34 40 MG Morphine Sulfate 2 mg Q4HPRN PRN IV 05/08/24 09:30 05/09/24 21:29 2 MG Mupirocin 1 applic BID EACHNOSTRI 05/09/24 22:00 05/14/24 21:59 05/09/24 21:35 1 APPLIC objective General: Patient is alert, opened his eyes, however did not communicate much, seems like has generalized weakness. HEENT: Normocephalic, atraumatic, Sclera anicteric, conjunctiva clear, No nasal discharge or congestion. Mucous membranes moist, no tonsillar erythema or exudates. Neck: No cervical lymphadenopathy or masses. No neck stiffness. Respiratory: Other (Bilateral rhonchi) Cardiovascular: Other (Bradycardic heart rate is 50) Abdomen: Soft, non-tender, non-distended. Bowel sounds present in all quadrants. No hepatosplenomegaly or masses. Skin: No rash, petechiae, or ecchymosis. Genitourinary: Patient has a folic catheter with bleeding. He has a Richi catheter in place, also has some bleeding with the pressure bandage on. Extremities: Other (+edema in the upper and lower extremities and 3+ edema in the left arm) Neurologic: Patient is alert. Unable to assess. laboratory and microbiology Laboratory Tests 05/10/24 04:47 Test 05/10/24 04:47 Range/Units Serum Glucose 104 74-106 mg/dL Assessment/Plan Patient is a 68-year-old male presents to the hospital with: Shock possibly secondary to septic Metabolic acidosis Severe acute kidney injury Hematuria Bladder outlet obstruction, S/P Starkey catheter Elevated INR Pulmonary edema, MSRA Recommendations: S/P first hemodialysis session on 05/08 and scheduled for second session yesterday. Monitor fluid balance. Patient is currently on broad-spectrum antibiotics, Meropenem IV, Norepinephrine, continue for now. Chest x-ray shows Pulmonary congestion, pneumonia cannot be ruled out. Personally reviewed. Consider adding Vancomycin Urology is on board GI consulted for GI bleed Antibiotic status: Meropenem IV [Started on 05/06 - Ongoing] 05/06, Blood cultures showed no growth 05/06, MRSA came back positive Nephrology is on board. 05/07, Urine culture showed 10,000 CFU/mL Yeast Identification to follow. Prognosis guarded Poor critical time spent 35 minutes soon, then counter-plan discussed with the nurse. Thank you for consult. Dietary Evaluation Review Comments: 1) Ensure clear 8floz TID 2) Advance diet as medically feasible 3) Consider [id number] + renal standard diet as goal diet 4) Continue current plan of care Expected Outcomes/Goals: Pt will meet 75% estimated needs Fu 2-3 days Plan discussed with: Other SOLEDAD BENNETT MD May 10, 2024 09:42
--- NOTE | 2024-05-10 10:51 | DVHPN2 ---
Progress Note Date Seen: May 10, 2024 Medical Necessity Reason Pt with a Central, PICC or Fol: Yes The following are medically ne: Central Line, Starkey Catheter Reason for starkey catheter: Strict I&O Subjective Review of Systems: RESPIRATORY:Abnormal Other Systems: Patient seen and examined by myself today in follow-up Objective vital signs Vital Sign Date Time Temp Pulse Resp B/P (MAP) Pulse Ox O2 Delivery O2 Flow Rate FiO2 05/10/24 09:45 98.1 84 15 94/51 (65) 96 208.6 05/10/24 08:00 Nasal Cannula* 3 32 Total Intake and Output 05/09/24 05/09/24 05/10/24 15:00 23:00 07:00 Intake Total 72.564 ml 1022.375 ml 365.314 ml Output Total 10 ml 10 ml Balance 72.564 ml 1012.375 ml 355.314 ml medications Current Medications Medications Dose Ordered Sig/Eloy Route Start Time Stop Time Status Last Admin Dose Admin Nitroglycerin 0.4 mg Q5MINP PRN SL 05/06/24 10:45 Morphine Sulfate 2 mg Q30M PRN IV 05/06/24 10:45 05/09/24 03:25 2 MG Pantoprazole Sodium 40 mg BID IV 05/06/24 22:00 05/09/24 21:34 40 MG Ondansetron HCl 4 mg Q4HPRN PRN IV 05/06/24 11:00 05/06/24 15:41 4 MG Meropenem 50 ml @ 17 mls/hr Q12HR IV 05/06/24 22:00 05/09/24 21:33 17 MLS/HR Diagnostic Test (Pha) 1 strip Q6HR 05/06/24 12:00 05/10/24 05:36 1 STRIP Insulin Human Regular Q6HR SC 05/06/24 12:00 05/09/24 23:49 2 UNITS Dextrose 50 ml UD PRN IV 05/06/24 11:15 Norepinephrine Bitartrate 32 mg/ Sodium Chloride 250 ml @ 0.938 mls/ hr Q24H IV 05/06/24 13:00 05/09/24 18:32 5.625 MLS/HR Linezolid 300 ml @ 300 mls/hr Q12H IV 05/06/24 17:00 05/10/24 04:54 300 MLS/HR Methylprednisolone Sodium Succinate 40 mg BID IV 05/06/24 22:00 05/09/24 21:34 40 MG Morphine Sulfate 2 mg Q4HPRN PRN IV 05/08/24 09:30 05/09/24 21:29 2 MG Mupirocin 1 applic BID EACHNOSTRI 05/09/24 22:00 05/14/24 21:59 05/09/24 21:35 1 APPLIC Examination: LUNGS:Normal, CVS:Normal, MSK:Normal laboratory and microbiology Laboratory Tests 05/10/24 04:47 Test 05/10/24 04:47 Range/Units Serum Glucose 104 74-106 mg/dL Microbiology Date/Time Source Procedure Growth Status 05/07/24 00:00 Voided Urine Urine Culture - Final Presumptive Nia albicans Complete 05/06/24 14:10 Blood Blood Culture - Preliminary NO GROWTH AFTER 72 HOURS OF INCUBATION. Resulted 05/06/24 12:03 Nose MRSA Screen - Final Methicillin Resistant S.aureus Complete Problem List/Assessment/Plan Problem List/Assessment/Plan Acute kidney injury superimposed Chronic Kidney Disease requiring hemodialysis Hyperkalemia Diabetes mellitus type 2 Metabolic acidosis Congestive heart failure, ejection fraction 20% Anasarca Jaundice Transaminitis Proteinuria Gross hematuria after Starkey Anemia of chronic kidney disease REC: Hemodialysis tomorrow Epogen 65029 subQ with hemodialysis Albumin 25% p.r.n. for blood pressure support with hemodialysis IV Levophed for blood pressure support Discontinue diuresis Fluid restrictions Renal diet GI consult Cardiology consult We will continue to follow up Plan discussed with: Patient My Orders My Orders Orders - KERMIT HARKINS MD Procedure Category Date Status Time Hemodialysis Orders ORDERS 05/09/24 Transmitted 11:05 Dialysis Nursing CAT 05/09/24 In Process Message 11:05 Document Fluid Input CAT 05/09/24 In Process And Outpu 11:05 Dietary Evaluation Review Comments: 1) Ensure clear 8floz TID 2) Advance diet as medically feasible 3) Consider [id number] + renal standard diet as goal diet 4) Continue current plan of care Expected Outcomes/Goals: Pt will meet 75% estimated needs Fu 2-3 days KERMIT HARKINS MD May 10, 2024 10:51
[2024-05-10] MEDS: SEVELAMER 800 MG TAB PO SCH (12:00)
--- NOTE | 2024-05-10 13:24 | DVHPN2 ---
Progress Note Date Seen: May 10, 2024 Resident Creating Document: BEL LANCE RESIDENT Medical Necessity Reason Pt with a Central, PICC or Fol: Yes The following are medically ne: Central Line, Starkey Catheter Reason for starkey catheter: Strict I&O Subjective Review of Systems 68-year-old male who came from [facility] for low blood pressure and bradycardia and bleeding. The patient has been there since about 2 weeks after what it appears he was discharged from another facility after he had sepsis and respiratory failure and was treated for atrial fibrillation. He is on Xarelto. It is reported that he has a nosebleed and rectal bleeding.The patient says he feels his abdomen is tight. Patient required urology to insert a complex catheter due to prostatic enlargement. Currently patient was seen in [facility]. Patient was on a dopamine drip and he was given treatment for hyperkalemia. Dr. Allen inserted a complex catheter because of urinary retention. Patient is having bleeding from the rectum on presentation but none today. Patient however is bleeding from an ear lobe prick and also from his nose and mouth and appears to have generalized coagulopathy. Patient is a poor historian but he does recall having had a colonoscopy a few years back which he states was negative. Seen examined at bedside, Patient reports abdominal pain. Objective vital signs Vital Sign Date Time Temp Pulse Resp B/P (MAP) Pulse Ox O2 Delivery O2 Flow Rate FiO2 05/10/24 11:45 98.1 84 14 92/50 (64) 90 208.6 05/10/24 10:00 Nasal Cannula 3.0 05/10/24 10:00 32 Total Intake and Output 05/09/24 05/09/24 05/10/24 15:00 23:00 07:00 Intake Total 72.564 ml 1022.375 ml 365.314 ml Output Total 10 ml 10 ml Balance 72.564 ml 1012.375 ml 355.314 ml medications Current Medications Medications Dose Ordered Sig/Eloy Route Start Time Stop Time Status Last Admin Dose Admin Nitroglycerin 0.4 mg Q5MINP PRN SL 05/06/24 10:45 Morphine Sulfate 2 mg Q30M PRN IV 05/06/24 10:45 05/09/24 03:25 2 MG Pantoprazole Sodium 40 mg BID IV 05/06/24 22:00 05/10/24 10:45 40 MG Ondansetron HCl 4 mg Q4HPRN PRN IV 05/06/24 11:00 05/06/24 15:41 4 MG Meropenem 50 ml @ 17 mls/hr Q12HR IV 05/06/24 22:00 05/10/24 10:45 17 MLS/HR Diagnostic Test (Pha) 1 strip Q6HR 05/06/24 12:00 05/10/24 12:00 1 STRIP Insulin Human Regular Q6HR SC 05/06/24 12:00 05/10/24 12:40 2 UNITS Dextrose 50 ml UD PRN IV 05/06/24 11:15 Norepinephrine Bitartrate 32 mg/ Sodium Chloride 250 ml @ 0.938 mls/ hr Q24H IV 05/06/24 13:00 05/09/24 18:32 5.625 MLS/HR Linezolid 300 ml @ 300 mls/hr Q12H IV 05/06/24 17:00 05/10/24 04:54 300 MLS/HR Methylprednisolone Sodium Succinate 40 mg BID IV 05/06/24 22:00 05/10/24 10:45 40 MG Morphine Sulfate 2 mg Q4HPRN PRN IV 05/08/24 09:30 05/09/24 21:29 2 MG Mupirocin 1 applic BID EACHNOSTRI 05/09/24 22:00 05/14/24 21:59 05/10/24 10:00 1 APPLIC Sevelamer HCl 2,400 mg TIDWM PO 05/10/24 12:00 Examination General Appearance: Alert, Oriented X2, awake and arousable Patient is bleeding from the site of his face near the earlobe Respiratory: Decreased breath sounds at the bases, occasional rhonchi Cardiovascular: Heart sound S1-S2, Abdominal: Normal bowel sounds;soft NT Extremities: 2+ pedal edema, 1+ UE edema laboratory and microbiology Laboratory Tests 05/10/24 04:47 Test 05/10/24 04:47 Range/Units Serum Glucose 104 74-106 mg/dL Microbiology Date/Time Source Procedure Growth Status 05/07/24 00:00 Voided Urine Urine Culture - Final Presumptive Nia albicans Complete 05/06/24 14:10 Blood Blood Culture - Preliminary NO GROWTH AFTER 72 HOURS OF INCUBATION. Resulted 05/06/24 12:03 Nose MRSA Screen - Final Methicillin Resistant S.aureus Complete Problem List/Assessment/Plan Problem List/Assessment/Plan (1) GI bleed (2) Volume overload (3) CHF exacerbation (4) Elevated troponin (5) Hypotension (6) Pulmonary edema (7) Bradycardia (8) Generalized weakness (9) Acute renal failure (10) Hyperkalemia (11) Lactic acidosis (12) Elevated liver enzymes (13) Nose bleeding (14) likely drug-induced liver injury due to atorvastatin and amiodarone Patient has developed coagulopathy related to Xarelto and aspirin use Continue to monitor labs, Patient got 1 unit FFP restarted If hemoglobin drops below seven we will transfuse PRBC, Today Hb is 8.3 Continue to monitor labs and supportive care Protonix 40 mg IV q.12 hours Elevated liver enzymes likely related to liver congestion due to cardiac issues and fluid overload Hepatitis panel is Negative, right upper quadrant ultrasound Supportive care Patient is currently not stable for an endoscopy and we will continue to monitor labs Ice chips clear liquid diet advance as tolerated Ordered YARA indirect Ordered ferritin D/C atorvastatin, Liver ultrasound ordered Recommend Heme-Onc follow up to rule out multiple myeloma Thank you so much for the opportunity to consult on your patient. GI team will follow the patient. In case of any questions or concerns please feel free to reach out. Case discussed with Dr. Consuelo Duran. The patient and caregiver team agreed to the plan. Plan discussed with: Patient Dietary Evaluation Review Comments: 1) Ensure clear 8floz TID 2) Advance diet as medically feasible 3) Consider [id number] + renal standard diet as goal diet 4) Continue current plan of care Expected Outcomes/Goals: Pt will meet 75% estimated needs Fu 2-3 days BEL LANCE RESIDENT May 10, 2024 13:24
--- NOTE | 2024-05-10 14:22 | DVHPN2 ---
Subjective He is still having some oozing from the right groin Richi catheter He is still has a hematuria in the Brown He is still on Levophed drip Changes from previous H/P or p: Changes Gastrointestinal: Abdominal Pain Objective Vitals Vital Signs Date Time Temp Pulse Resp B/P (MAP) Pulse Ox O2 Delivery O2 Flow Rate FiO2 05/10/24 11:45 98.1 84 14 92/50 (64) 90 208.6 05/10/24 10:00 Nasal Cannula 3.0 05/10/24 10:00 32 Intake/Output Intake and Output 05/10/24 07:00 Intake Total 1460.253 ml Output Total 20 ml Balance 1440.253 ml Intake Oral 240 ml IV Total 902.253 ml Blood Product 318 ml Output Urine Total 20 ml General Appearance: Alert Lungs: Other (B Rhonchi) Extremities: Other (2+ edema diffuse) Medications Current Medications Medications Dose Ordered Sig/Eloy Route Start Time Stop Time Status Last Admin Dose Admin Nitroglycerin 0.4 mg Q5MINP PRN SL 05/06/24 10:45 Morphine Sulfate 2 mg Q30M PRN IV 05/06/24 10:45 05/09/24 03:25 2 MG Pantoprazole Sodium 40 mg BID IV 05/06/24 22:00 05/10/24 10:45 40 MG Ondansetron HCl 4 mg Q4HPRN PRN IV 05/06/24 11:00 05/06/24 15:41 4 MG Meropenem 50 ml @ 17 mls/hr Q12HR IV 05/06/24 22:00 05/10/24 10:45 17 MLS/HR Dextrose 50 ml UD PRN IV 05/06/24 11:15 Norepinephrine Bitartrate 32 mg/ Sodium Chloride 250 ml @ 0.938 mls/ hr Q24H IV 05/06/24 13:00 05/09/24 18:32 5.625 MLS/HR Linezolid 300 ml @ 300 mls/hr Q12H IV 05/06/24 17:00 05/10/24 04:54 300 MLS/HR Methylprednisolone Sodium Succinate 40 mg BID IV 05/06/24 22:00 05/10/24 10:45 40 MG Morphine Sulfate 2 mg Q4HPRN PRN IV 05/08/24 09:30 05/09/24 21:29 2 MG Mupirocin 1 applic BID EACHNOSTRI 05/09/24 22:00 05/14/24 21:59 05/10/24 10:00 1 APPLIC Sevelamer HCl 2,400 mg TIDWM PO 05/10/24 12:00 Laboratory Results Laboratory Tests 05/10/24 04:47 Chemistry Test 05/10/24 04:47 Albumin 3.4 g/dL (3.2-4.8) Calcium Level 8.8 mg/dL (8.7-10.4) Magnesium Level 2.7 mg/dL (1.6-2.6) H Total Protein 6.8 g/dL (5.7-8.2) Coagulation Test 05/10/24 04:47 Prothrombin Time 15.5 sec (9.3-11.8) H Prothrombin Time INR 1.52 (0.9-1.15) H Activated Partial Thromboplast Time 28.3 SEC (24.5-34.5) LFT Test 05/10/24 04:47 Alanine Aminotransferase (ALT) 53 U/L (7-40) H Alkaline Phosphatase 502 U/L (46-116) H Aspartate Amino Transferase (AST) 332 U/L (13-40) H Total Bilirubin 7.4 mg/dL (0.2-1.0) H Urinalysis Test 05/07/24 00:00 Urine Color Red (Yellow) Urine Clarity Ex.turbid (Clear) Urine pH 6.5 (5.0-9.0) Urine Specific [place] 1.018 (1.001-1.035) Urine Protein 3+ (Negative) H Urine Ketones Negative (Negative) Urine Blood 3+ /uL (Negative) H Urine Nitrite Negative (Negative) Urine Bilirubin 1+ (Negative) Urine Urobilinogen Normal mg/dL (Negative) Urine Leukocyte Esterase Trace /uL (Negative) Urine RBC 4356 /hpf (0 - 3) Urine Microscopic WBC 197 /HPF (0-3) H Urine Squamous Epithelial Cells None seen /hpf (<5) Urine Bacteria None seen /hpf (None Seen) Urine Glucose Trace mg/dL (Normal) Microbiology Microbiology Date/Time Source Procedure Growth Status 05/07/24 00:00 Voided Urine Urine Culture - Final Presumptive Nia albicans Complete 05/06/24 14:10 Blood Blood Culture - Preliminary NO GROWTH AFTER 72 HOURS OF INCUBATION. Resulted 05/06/24 12:03 Nose MRSA Screen - Final Methicillin Resistant S.aureus Complete Assessment/Plan Assessment/Plan Severe sepsis with septic shock Bradycardia Possible GI bleed Acute on chronic kidney disease Acute heart failure, possibly systolic Pulmonary edema Hyperkalemia Anemia, macrocytic History of chronic kidney disease stage 3 Elevated liver function tests with a total bilirubin of 5.3 Lactic acidosis NSTEMI Urinary retention History of heart failure and cardiomyopathy History of CVA Atrial fibrillation on Xarelto Mixed hyperlipidemia Type 2 diabetes BPH Recent sepsis and respiratory failure History of gout GERD Plan Admit to ICU Dopamine drip Oxygen as needed Calcium gluconate Lokelma Keep NPO now Nephrology consult Cardiology consult Echocardiogram Urology consult because a Brown catheter could not be inserted Possible urinary retention Broad-spectrum antibiotics meropenem and Zyvox 05/07/24: Hyperkalemia: Protocol Worsening CKD: HD per nephrology Dialysis catheter planned Transfuse FFP Vit K IV antibiotics: Meropenem & Zyvox IV steroids Vasopressors prn EF 25-30% Hematuria Urinary retention Coagulopathy due to sepsis? 05/08/2024: Give morphine p.r.n. for the pain Vitamin K 5 mg IV x1 Hemodialysis scheduled for today Levophed drip as needed Bumex drip IV antibiotics with meropenem and linezolid Infectious Disease consultation Nephrology is on case and following Anemia: Monitor hemoglobin and transfuse as needed 05/09/2024: Coagulopathy: Transfuse 1 unit FFP End-stage renal disease: Hemodialysis again today Sepsis: Continue IV antibiotics with meropenem and Zyvox Septic shock: Continue Levophed drip Hematuria: Urology Service is on case MRSA in nares: Start mupirocin 05/10/2024: Give vitamin K 10 mg subQ Do a swallow eval Advance diet as tolerated Hemodialysis per nephrology IV antibiotics Zyvox and meropenem IV steroids Monitor closely Plan discussed with: Patient My Orders Orders - RONALD SUÁREZ MD Procedure Category Date Status Time Phytonadione (Vitamin PHA 05/10/24 Logged K) 14:30 Date of Service: May 10, 2024 Billing Provider: RONALD SUÁREZ MD Common Visit Codes: NOT BILLABLE RONALD SUÁREZ MD May 10, 2024 14:22
[2024-05-10] MEDS ORDERED: DEXTROSE (50%) 50ML SYRG IV PRN (14:30)
[2024-05-10] MEDS: PHYTONADIONE (VIT K)10 MG/ML 1ML VIAL SUBCUT ONE (14:43)
[2024-05-10] MEDS: InsuLIN REG 1unit/0.01ml Soln (100units/ml) SC SCH (17:00)
[2024-05-10] MEDS: ACCU-CHEK COMFORT CURVE STRIP VI SCH (17:00)
[2024-05-10] MEDS ORDERED: CLINIMIX PER PHARMACY 0 ML IV SCH (19:45)
--- NOTE | 2024-05-10 20:07 | DVHPN2 ---
Progress Note - Dictate Date Seen: May 10, 2024 Medical Necessity Reason Pt with a Central, PICC or Fol: Yes The following are medically ne: Central Line, Starkey Catheter Reason for starkey catheter: Strict I&O Subjective Patient seen and examined at bedside. Remains on supplemental oxygen Overnight events reviewed. vital signs Vital Sign Date Time Temp Pulse Resp B/P (MAP) Pulse Ox O2 Delivery O2 Flow Rate FiO2 05/10/24 19:30 98.2 85 15 99/54 (69) 92 208.8 05/10/24 18:00 Nasal Cannula* 1 24 Total Intake and Output 05/09/24 05/09/24 05/10/24 15:00 23:00 07:00 Intake Total 72.564 ml 1022.375 ml 365.314 ml Output Total 10 ml 10 ml Balance 72.564 ml 1012.375 ml 355.314 ml medications Current Medications Medications Dose Ordered Sig/Eloy Route Start Time Stop Time Status Last Admin Dose Admin Nitroglycerin 0.4 mg Q5MINP PRN SL 05/06/24 10:45 Morphine Sulfate 2 mg Q30M PRN IV 05/06/24 10:45 05/09/24 03:25 2 MG Pantoprazole Sodium 40 mg BID IV 05/06/24 22:00 05/10/24 10:45 40 MG Ondansetron HCl 4 mg Q4HPRN PRN IV 05/06/24 11:00 05/06/24 15:41 4 MG Meropenem 50 ml @ 17 mls/hr Q12HR IV 05/06/24 22:00 05/10/24 10:45 17 MLS/HR Norepinephrine Bitartrate 32 mg/ Sodium Chloride 250 ml @ 0.938 mls/ hr Q24H IV 05/06/24 13:00 05/09/24 18:32 5.625 MLS/HR Linezolid 300 ml @ 300 mls/hr Q12H IV 05/06/24 17:00 05/10/24 17:35 300 MLS/HR Methylprednisolone Sodium Succinate 40 mg BID IV 05/06/24 22:00 05/10/24 10:45 40 MG Morphine Sulfate 2 mg Q4HPRN PRN IV 05/08/24 09:30 05/09/24 21:29 2 MG Mupirocin 1 applic BID EACHNOSTRI 05/09/24 22:00 05/14/24 21:59 05/10/24 10:00 1 APPLIC Sevelamer HCl 2,400 mg TIDWM PO 05/10/24 12:00 Diagnostic Test (Pha) 1 strip ACHS 05/10/24 17:00 05/10/24 17:00 1 STRIP Insulin Human Regular ACHS SC 05/10/24 17:00 Dextrose 50 ml UD PRN IV 05/10/24 14:30 Enteral Nutritional Formula 240 ml QID PO 05/10/24 22:00 Amino Acids 0 ml @ 0 mls/hr PER PHARMACY IV 05/10/24 19:45 UNV Amino Acids/ Electrolytes/ Dextrose 2,000 ml @ 41 mls/hr DAILY@2200 IV 05/10/24 22:00 05/11/24 21:59 objective Gen.: Patient lying in bed in no apparent distress. On supplemental oxygen. Head: Normocephalic, atraumatic. Eyes: EOMI/PERRLA. Ears: Normal hearing. Normal anatomy. Neck/trachea: Trachea midline, supple. Nose: Normal external anatomy. Mouth: Moist mucous membranes. Chest: Decreased air entry bilaterally. No wheezing or rhonchi. Cardiovascular: Positive S1, positive S2. Regular rate and rhythm. Abdomen: Positive bowel sounds in all 4 quadrants. Soft, non-tender, non- distended. : Deferred. Rectal: Deferred. Skin: Warm, dry. Intact. Extremities: 2+ radial pulses bilaterally. No lower extremity edema. Neuro: Awake, alert, oriented x3. No gross motor or sensory deficits. Cranial nerves II through XII intact. Gait not assessed. laboratory and microbiology Laboratory Tests 05/10/24 04:47 Test 05/10/24 04:47 Range/Units Serum Glucose 104 74-106 mg/dL Assessment/Plan Impression: Acute hypoxic respiratory failure Dependence on supplemental oxygen Acute COPD exacerbation CHF exacerbation Metabolic acidosis Obesity BMI 39.4 Events: Remains on supplemental oxygen 3 LPM Oxymizer -->2 LPM NC Improved O2 requirements Continue to taper O2 as tolerated S/p hemodialysis yesterday. Albumin given during HD. 1 unit FFP transfusion d/t epistaxis Hematuria noted via Starkey Bleeding/oozing from right femoral Richi/central line sites. On pressors for hemodynamic support Levophed 6 mcg/min Titrate to keep MAP above 65 mmHg/SBP above 90 mmHg. Continue steroids Continue antibiotics Incentive spirometry Poor PO intake. HD per Nephrology Monitor renal function Monitor electrolytes. Supplement as necessary. Monitor ins and outs. Nephrology recs appreciated. Monitor hemoglobin closely - 8.0 g/dL Monitor PT/INR. Labs and imaging reviewed. Rest of plan as noted below. Plan: Continue supplemental oxygen Titrate to keep O2 sats above 92%. S/p right femoral Richi cath for HD + central line for administration of pressors On pressors for hemodynamic support Titrate to keep MAP above 65 mmHg/SBP above 90 mmHg. Continue antibiotics Continue steroids - Solu-Medrol IV 40 mg q.12 hours Incentive spirometry Monitor renal function. Monitor electrolytes. Supplement as necessary. Monitor ins and outs. Nephrology recs appreciated. DVT prophylaxis. Prognosis: Poor given patient's multiple co-morbidities. Condition: Critical Rest of plan per hospitalist and other consultants. A total of 35 minutes of critical care time was spent reviewing the patient record, examining the patient, making a diagnostic and therapeutic plan, discussing this plan with the medical personnel, following up on diagnostic studies and following the patient for clinical stability excluding any and all procedures. At least 50% of this time was spent in direct, [id number] contact. Thank you, Dr. Camarena, for allowing me to participate in this patient's care. Further recommendations will depend on the patient's clinical course. Please do not hesitate to contact me if you have any questions or concerns. This medical document was created using an electronic medical record system with [employer] computerized dictation system. Although these documentations are being carefully reviewed, there may still be some phonetic and typographical changes. The errors are purely typographical, due to imperfection on the software program, and do not reflect any compromise in the patient's medical care. Dietary Evaluation Review Comments: 1) Ensure clear 8floz TID 2) Advance diet as medically feasible 3) Consider [id number] + renal standard diet as goal diet 4) Continue current plan of care Expected Outcomes/Goals: Pt will meet 75% estimated needs Fu 2-3 days Plan discussed with: Other (KIM Draper) Critical Care Time(min): 35 WENCESLAO ESCOBAR MD May 10, 2024 20:07
[2024-05-10] MEDS: AMINO ACID INFUSION IN D10W 2,000 ML IV SCH (21:45)
[2024-05-10] MEDS: Nepro With Carbsteady Vanilla 8oz Carton PO SCH (21:49)
[2024-05-11] VITALS (78 sets, daily range): BP systolic 82–113; BP diastolic 48–70; PULSE 76–94; RESP 9–22; TEMP 97.5–99.3; O2SAT 90–98
[2024-05-11 05:36] LABS: Hematocrit 26.3 % (41.0-53.0); Hemoglobin 8.3 g/dL (13.5-17.5); Mean Corpuscular Hemoglobin 31.5 pg (28.0-32.0); Mean Corpuscular Hgb Conc. 31.5 g/dL (32.0-36.0); Platelet Count (auto) 175 10^3/uL (140-450); Red Blood Cells 2.62 10^6/uL (4.5-5.90); White Blood Cell 16.9 10^3/uL (4.4-10.8)
[2024-05-11 05:37] LABS: Red Cell Distribution Width 20.3 % (11.8-14.3)
[2024-05-11 05:39] LABS: Band Neutrophils % (manual) 0; Basophils % (manual) 0 (0.0-2.0); Blast Cells 0; Eosinophils % (manual) 0 (0-7); Metamyelocytes % 0; Myelocytes % 0; Promyelocytes % 0; Reactive Lymphocytes 0
[2024-05-11 05:49] LABS: Anion Gap 22 (5-15); BUN/Creatinine Ratio 21.3 (10.0-20.0); Total Protein 6.4 g/dL (5.7-8.2)
[2024-05-11 06:02] LABS: Alanine Aminotransferase 71 U/L (7-40); Alkaline Phosphatase 465 U/L (46-116); Aspartate Aminotransferase 421 U/L (13-40); Calcium 7.5 mg/dL (8.7-10.4); Carbon Dioxide 17 mmol/L (20-31); Chloride 96 mmol/L (98-107); Glucose 185 mg/dL (74-106); Magnesium 2.8 mg/dL (1.6-2.6); Potassium 5.3 mmol/L (3.5-5.1); Sodium 135 mmol/L (136-145)
[2024-05-11 06:07] LABS: Albumin 3.1 g/dL (3.2-4.8); Bilirubin, Total 7.7 mg/dL (0.2-1.0); Blood Urea Nitrogen 113 mg/dL (9-23); Phosphorus 11.8 mg/dL (2.4-5.1)
[2024-05-11 06:39] LABS: Lymphocytes % (manual) 1 (10.0-50.0); Monocytes % (manual) 2 (0-12)
[2024-05-11 06:40] LABS: Platelet Estimate Adequate
[2024-05-11] MEDS: SODIUM CHL 0.9% 1000 ML BAG XX ONE (07:00)
[2024-05-11] MEDS: ALBUMIN 25% 100 ML IV ONE (08:30)
--- NOTE | 2024-05-11 10:39 | DVHPN2 ---
Progress Note Date Seen: May 11, 2024 Medical Necessity Reason Pt with a Central, PICC or Fol: Yes The following are medically ne: Central Line, Starkey Catheter Reason for starkey catheter: Strict I&O Subjective Review of Systems: RESPIRATORY:Abnormal Other Systems: Patient seen and examined by myself today in follow-up Patient examined hemodialysis, blood pressure stable Objective vital signs Vital Sign Date Time Temp Pulse Resp B/P (MAP) Pulse Ox O2 Delivery O2 Flow Rate FiO2 05/11/24 10:00 12 92 Nasal Cannula* 3 32 05/11/24 10:00 85 05/11/24 07:30 97.7 101/67 (78) 207.9 Total Intake and Output 05/10/24 05/10/24 05/11/24 14:59 22:59 06:59 Intake Total 222.876 ml 443.126 ml 695.00 ml Output Total 15 ml 11 ml Balance 222.876 ml 428.126 ml 684.00 ml medications Current Medications Medications Dose Ordered Sig/Eloy Route Start Time Stop Time Status Last Admin Dose Admin Nitroglycerin 0.4 mg Q5MINP PRN SL 05/06/24 10:45 Morphine Sulfate 2 mg Q30M PRN IV 05/06/24 10:45 05/09/24 03:25 2 MG Pantoprazole Sodium 40 mg BID IV 05/06/24 22:00 05/10/24 21:47 40 MG Ondansetron HCl 4 mg Q4HPRN PRN IV 05/06/24 11:00 05/06/24 15:41 4 MG Meropenem 50 ml @ 17 mls/hr Q12HR IV 05/06/24 22:00 05/10/24 21:46 17 MLS/HR Norepinephrine Bitartrate 32 mg/ Sodium Chloride 250 ml @ 0.938 mls/ hr Q24H IV 05/06/24 13:00 05/09/24 18:32 5.625 MLS/HR Linezolid 300 ml @ 300 mls/hr Q12H IV 05/06/24 17:00 05/11/24 04:37 300 MLS/HR Methylprednisolone Sodium Succinate 40 mg BID IV 05/06/24 22:00 05/10/24 21:47 40 MG Morphine Sulfate 2 mg Q4HPRN PRN IV 05/08/24 09:30 05/09/24 21:29 2 MG Mupirocin 1 applic BID EACHNOSTRI 05/09/24 22:00 05/14/24 21:59 05/10/24 22:04 1 APPLIC Sevelamer HCl 2,400 mg TIDWM PO 05/10/24 12:00 Diagnostic Test (Pha) 1 strip ACHS 05/10/24 17:00 05/11/24 06:50 1 STRIP Insulin Human Regular ACHS SC 05/10/24 17:00 05/11/24 06:51 4 UNITS Dextrose 50 ml UD PRN IV 05/10/24 14:30 Enteral Nutritional Formula 240 ml QID PO 05/10/24 22:00 Amino Acids 0 ml @ 0 mls/hr PER PHARMACY IV 05/10/24 19:45 UNV Amino Acids/ Electrolytes/ Dextrose 2,000 ml @ 40 mls/hr DAILY@2200 IV 05/10/24 22:00 05/10/24 21:45 40 MLS/HR laboratory and microbiology Laboratory Tests 05/11/24 04:50 Test 05/11/24 04:50 Range/Units Serum Glucose 185 H 74-106 mg/dL Microbiology Date/Time Source Procedure Growth Status 05/07/24 00:00 Voided Urine Urine Culture - Final Presumptive Nia albicans Complete 05/06/24 14:10 Blood Blood Culture - Preliminary NO GROWTH AFTER 72 HOURS OF INCUBATION. Resulted 05/06/24 12:03 Nose MRSA Screen - Final Methicillin Resistant S.aureus Complete Problem List/Assessment/Plan Problem List/Assessment/Plan Acute kidney injury superimposed Chronic Kidney Disease requiring hemodialysis Hyperkalemia Diabetes mellitus type 2 Metabolic acidosis Congestive heart failure, ejection fraction 20% Anasarca Jaundice Transaminitis Proteinuria Gross hematuria after Starkey Anemia of chronic kidney disease REC: Continue with UF 1-3 L as tolerated Epogen 30355 subQ with hemodialysis Albumin 25% p.r.n. for blood pressure support with hemodialysis IV Levophed for blood pressure support Discontinue diuresis Fluid restrictions Renal diet GI consult Cardiology consult We will continue to follow up Plan discussed with: Patient My Orders My Orders Orders - KERMIT HARKINS MD Procedure Category Date Status Time Hemodialysis Orders ORDERS 05/11/24 Transmitted 07:00 Dialysis Nursing CAT 05/11/24 In Process Message 07:00 Document Fluid Input CAT 05/11/24 In Process And Outpu 07:00 Epoetin Aravind-Epbx PHA 05/11/24 In Process (Retacrit) 21:00 Sevelamer (Renagel) PHA 05/10/24 In Process 12:00 Dietary Evaluation Review Comments: 1) Ensure clear 8floz TID 2) Advance diet as medically feasible 3) Consider SDSH82ml + renal standard diet as goal diet 4) Continue current plan of care Expected Outcomes/Goals: Pt will meet 75% estimated needs Fu 2-3 days KERMIT HARKINS MD May 11, 2024 10:39
--- NOTE | 2024-05-11 11:57 | DVHPN2 ---
Progress Note - Dictate Date Seen: May 11, 2024 Medical Necessity Reason Pt with a Central, PICC or Fol: Yes The following are medically ne: Central Line, Starkey Catheter Reason for starkey catheter: Strict I&O Subjective Patient still has significant edema. Still on Levophed drip. Pending swallow evaluation vital signs Vital Sign Date Time Temp Pulse Resp B/P (MAP) Pulse Ox O2 Delivery O2 Flow Rate FiO2 05/11/24 10:30 97.9 87 10 104/63 (77) 93 208.2 05/11/24 10:00 Nasal Cannula* 3 32 Total Intake and Output 05/10/24 05/10/24 05/11/24 15:00 23:00 07:00 Intake Total 82.876 ml 500.126 ml 678.00 ml Output Total 15 ml 11 ml Balance 82.876 ml 485.126 ml 667.00 ml medications Current Medications Medications Dose Ordered Sig/Eloy Route Start Time Stop Time Status Last Admin Dose Admin Nitroglycerin 0.4 mg Q5MINP PRN SL 05/06/24 10:45 Morphine Sulfate 2 mg Q30M PRN IV 05/06/24 10:45 05/09/24 03:25 2 MG Pantoprazole Sodium 40 mg BID IV 05/06/24 22:00 05/10/24 21:47 40 MG Ondansetron HCl 4 mg Q4HPRN PRN IV 05/06/24 11:00 05/06/24 15:41 4 MG Meropenem 50 ml @ 17 mls/hr Q12HR IV 05/06/24 22:00 05/10/24 21:46 17 MLS/HR Norepinephrine Bitartrate 32 mg/ Sodium Chloride 250 ml @ 0.938 mls/ hr Q24H IV 05/06/24 13:00 05/09/24 18:32 5.625 MLS/HR Linezolid 300 ml @ 300 mls/hr Q12H IV 05/06/24 17:00 05/11/24 04:37 300 MLS/HR Methylprednisolone Sodium Succinate 40 mg BID IV 05/06/24 22:00 05/10/24 21:47 40 MG Morphine Sulfate 2 mg Q4HPRN PRN IV 05/08/24 09:30 05/09/24 21:29 2 MG Mupirocin 1 applic BID EACHNOSTRI 05/09/24 22:00 05/14/24 21:59 05/10/24 22:04 1 APPLIC Sevelamer HCl 2,400 mg TIDWM PO 05/10/24 12:00 Enteral Nutritional Formula 240 ml QID PO 05/10/24 22:00 Amino Acids 0 ml @ 0 mls/hr PER PHARMACY IV 05/10/24 19:45 Amino Acids/ Electrolytes/ Dextrose 2,000 ml @ 40 mls/hr DAILY@2200 IV 05/10/24 22:00 05/10/24 21:45 40 MLS/HR Diagnostic Test (Pha) 1 strip Q6HR 05/11/24 12:00 Insulin Human Regular FOLLOW SLIDING SCALE Q6HR SC 05/11/24 12:00 Dextrose 50 ml UD IV 05/11/24 12:00 objective General: Patient is alert, opened his eyes, however did not communicate much, seems like has generalized weakness. HEENT: Normocephalic, atraumatic, Sclera anicteric, conjunctiva clear, No nasal discharge or congestion. Mucous membranes moist, no tonsillar erythema or exudates. Neck: No cervical lymphadenopathy or masses. No neck stiffness. Respiratory: Other (Bilateral rhonchi) Cardiovascular: Other (Bradycardic heart rate is 50) Abdomen: Soft, non-tender, non-distended. Bowel sounds present in all quadrants. No hepatosplenomegaly or masses. Skin: No rash, petechiae, or ecchymosis. Genitourinary: Patient has a folic catheter with bleeding. He has a Richi catheter in place, also has some bleeding with the pressure bandage on. Extremities: Other (+edema in the upper and lower extremities and 3+ edema in the left arm) Neurologic: Patient is alert. Unable to assess. laboratory and microbiology Laboratory Tests 05/11/24 04:50 Test 05/11/24 04:50 Range/Units Serum Glucose 185 H 74-106 mg/dL Assessment/Plan Patient is a 68-year-old male presents to the hospital with: Shock possibly secondary to septic Metabolic acidosis Severe acute kidney injury Hematuria Bladder outlet obstruction, S/P Starkey catheter Elevated INR Pulmonary edema, MSRA Recommendations: S/P first hemodialysis session on 05/08 and scheduled for second session. Monitor fluid balance. Patient is currently on broad-spectrum antibiotics, Meropenem IV, Norepinephrine, continue for now. Chest x-ray shows Pulmonary congestion, pneumonia cannot be ruled out. Personally reviewed. Consider adding Vancomycin Urology is on board GI consulted for GI bleed Antibiotic status: Meropenem IV [Started on 05/06 - Ongoing] 05/06, Blood cultures showed no growth 05/06, MRSA came back positive Nephrology is on board. 05/07, Urine culture showed 10,000 CFU/mL Yeast Identification to follow. Prognosis guarded Poor critical time spent 35 minutes soon, then counter-plan discussed with the nurse. Thank you for consult. Dietary Evaluation Review Comments: 1) Ensure clear 8floz TID 2) Advance diet as medically feasible 3) Consider [id number] + renal standard diet as goal diet 4) Continue current plan of care Expected Outcomes/Goals: Pt will meet 75% estimated needs Fu 2-3 days Plan discussed with: Other SOLEDAD BENNETT MD May 11, 2024 11:57
[2024-05-11] MEDS: InsuLIN REG 1unit/0.01ml Soln (100units/ml) SC SCH (12:00)
[2024-05-11] MEDS ORDERED: DEXTROSE (50%) 50ML SYRG IV SCH (12:00)
--- NOTE | 2024-05-11 12:14 | DVHPN2 ---
Progress Note Date Seen: May 11, 2024 Resident Creating Document: BEL LANCE RESIDENT Medical Necessity Reason Pt with a Central, PICC or Fol: Yes The following are medically ne: Central Line, Starkey Catheter Reason for starkey catheter: Strict I&O Subjective Review of Systems 68-year-old male who came from [facility] for low blood pressure and bradycardia and bleeding. The patient has been there since about 2 weeks after what it appears he was discharged from another facility after he had sepsis and respiratory failure and was treated for atrial fibrillation. He is on Xarelto. It is reported that he has a nosebleed and rectal bleeding.The patient says he feels his abdomen is tight. Patient required urology to insert a complex catheter due to prostatic enlargement. Currently patient was seen in [facility]. Patient was on a dopamine drip and he was given treatment for hyperkalemia. Dr. Allen inserted a complex catheter because of urinary retention. Patient is having bleeding from the rectum on presentation but none today. Patient however is bleeding from an ear lobe prick and also from his nose and mouth and appears to have generalized coagulopathy. Patient is a poor historian but he does recall having had a colonoscopy a few years back which he states was negative. Objective vital signs Vital Sign Date Time Temp Pulse Resp B/P (MAP) Pulse Ox O2 Delivery O2 Flow Rate FiO2 05/11/24 10:30 97.9 87 10 104/63 (77) 93 208.2 05/11/24 10:00 Nasal Cannula* 3 32 Total Intake and Output 05/10/24 05/10/24 05/11/24 15:00 23:00 07:00 Intake Total 82.876 ml 500.126 ml 678.00 ml Output Total 15 ml 11 ml Balance 82.876 ml 485.126 ml 667.00 ml medications Current Medications Medications Dose Ordered Sig/Eloy Route Start Time Stop Time Status Last Admin Dose Admin Nitroglycerin 0.4 mg Q5MINP PRN SL 05/06/24 10:45 Morphine Sulfate 2 mg Q30M PRN IV 05/06/24 10:45 05/09/24 03:25 2 MG Pantoprazole Sodium 40 mg BID IV 05/06/24 22:00 05/10/24 21:47 40 MG Ondansetron HCl 4 mg Q4HPRN PRN IV 05/06/24 11:00 05/06/24 15:41 4 MG Meropenem 50 ml @ 17 mls/hr Q12HR IV 05/06/24 22:00 05/10/24 21:46 17 MLS/HR Norepinephrine Bitartrate 32 mg/ Sodium Chloride 250 ml @ 0.938 mls/ hr Q24H IV 05/06/24 13:00 05/09/24 18:32 5.625 MLS/HR Linezolid 300 ml @ 300 mls/hr Q12H IV 05/06/24 17:00 05/11/24 04:37 300 MLS/HR Methylprednisolone Sodium Succinate 40 mg BID IV 05/06/24 22:00 05/10/24 21:47 40 MG Morphine Sulfate 2 mg Q4HPRN PRN IV 05/08/24 09:30 05/09/24 21:29 2 MG Mupirocin 1 applic BID EACHNOSTRI 05/09/24 22:00 05/14/24 21:59 05/10/24 22:04 1 APPLIC Sevelamer HCl 2,400 mg TIDWM PO 05/10/24 12:00 Enteral Nutritional Formula 240 ml QID PO 05/10/24 22:00 Amino Acids 0 ml @ 0 mls/hr PER PHARMACY IV 05/10/24 19:45 Amino Acids/ Electrolytes/ Dextrose 2,000 ml @ 40 mls/hr DAILY@2200 IV 05/10/24 22:00 05/10/24 21:45 40 MLS/HR Diagnostic Test (Pha) 1 strip Q6HR 05/11/24 12:00 Insulin Human Regular FOLLOW SLIDING SCALE Q6HR SC 05/11/24 12:00 Dextrose 50 ml UD IV 05/11/24 12:00 Examination Seen examined at bedside, Patient reports abdominal pain. General Appearance: Alert, Oriented X2, awake and arousable Patient is bleeding from the site of his face near the earlobe Respiratory: Decreased breath sounds at the bases, occasional rhonchi Cardiovascular: Heart sound S1-S2, Abdominal: Normal bowel sounds;soft NT Extremities: 2+ pedal edema, 1+ UE edema laboratory and microbiology Laboratory Tests 05/11/24 04:50 Test 05/11/24 04:50 Range/Units Serum Glucose 185 H 74-106 mg/dL Microbiology Date/Time Source Procedure Growth Status 05/07/24 00:00 Voided Urine Urine Culture - Final Presumptive Nia albicans Complete 05/06/24 14:10 Blood Blood Culture - Preliminary NO GROWTH AFTER 72 HOURS OF INCUBATION. Resulted 05/06/24 12:03 Nose MRSA Screen - Final Methicillin Resistant S.aureus Complete Problem List/Assessment/Plan Problem List/Assessment/Plan (1) GI bleed (2) Volume overload (3) CHF exacerbation (4) Elevated troponin (5) Hypotension (6) Pulmonary edema (7) Bradycardia (8) Generalized weakness (9) Acute renal failure (10) Hyperkalemia (11) Lactic acidosis (12) Elevated liver enzymes (13) Nose bleeding (14) likely drug-induced liver injury due to atorvastatin and amiodarone Patient has developed coagulopathy related to Xarelto and aspirin use Continue to monitor labs, Patient got FFP. If hemoglobin drops below seven we will transfuse PRBC, Today Hb is 8.3 Continue to monitor labs and supportive care Protonix 40 mg IV q.12 hours Elevated liver enzymes likely related to liver congestion due to cardiac issues and fluid overload Hepatitis panel is Negative, right upper quadrant ultrasound Supportive care Patient is currently not stable for an endoscopy and we will continue to monitor labs Ice chips clear liquid diet advance as tolerated Ordered YARA indirect Ordered ferritin D/C atorvastatin, Liver ultrasound ordered Recommend Heme-Onc follow up to rule out multiple myeloma Ordered one dose of vitamin K Thank you so much for the opportunity to consult on your patient. GI team will follow the patient. In case of any questions or concerns please feel free to reach out. Case discussed with Dr. Consuelo Duran. The patient and caregiver team agreed to the plan. Plan discussed with: Patient Dietary Evaluation Review Comments: 1) Ensure clear 8floz TID 2) Advance diet as medically feasible 3) Consider [id number] + renal standard diet as goal diet 4) Continue current plan of care Expected Outcomes/Goals: Pt will meet 75% estimated needs Fu 2-3 days BEL LANCE RESIDENT May 11, 2024 12:14
[2024-05-11] MEDS: phytonadione 10 MG in SODIUM CHL 0.9% 50 ML IV ONE (12:30)
[2024-05-11] MEDS: ACCU-CHEK COMFORT CURVE STRIP VI SCH (12:34)
[2024-05-11] MEDS: CALCIUM GLUC 1,000mg/50ml-NS 50 ML IV ONE (12:34)
--- NOTE | 2024-05-11 13:16 | DVHPN2 ---
Subjective Still on vasopressors Still has significant edema Changes from previous H/P or p: Changes Gastrointestinal: Abdominal Pain Objective Vitals Vital Signs Date Time Temp Pulse Resp B/P (MAP) Pulse Ox O2 Delivery O2 Flow Rate FiO2 05/11/24 12:45 99.1 91 14 98/60 (73) 93 210.4 05/11/24 12:00 Nasal Cannula* 4 36 Intake/Output Intake and Output 05/11/24 07:00 Intake Total 1261.002 ml Output Total 26 ml Balance 1235.002 ml Intake Oral 100 ml IV Total 1161.002 ml Output Urine Total 25 ml Stool Total 1 ml General Appearance: Alert Lungs: Other (B Rhonchi) Extremities: Other (2+ edema diffuse) Medications Current Medications Medications Dose Ordered Sig/Eloy Route Start Time Stop Time Status Last Admin Dose Admin Nitroglycerin 0.4 mg Q5MINP PRN SL 05/06/24 10:45 Morphine Sulfate 2 mg Q30M PRN IV 05/06/24 10:45 05/09/24 03:25 2 MG Pantoprazole Sodium 40 mg BID IV 05/06/24 22:00 05/11/24 12:30 40 MG Ondansetron HCl 4 mg Q4HPRN PRN IV 05/06/24 11:00 05/06/24 15:41 4 MG Meropenem 50 ml @ 17 mls/hr Q12HR IV 05/06/24 22:00 05/11/24 10:00 17 MLS/HR Norepinephrine Bitartrate 32 mg/ Sodium Chloride 250 ml @ 0.938 mls/ hr Q24H IV 05/06/24 13:00 05/09/24 18:32 5.625 MLS/HR Linezolid 300 ml @ 300 mls/hr Q12H IV 05/06/24 17:00 05/11/24 04:37 300 MLS/HR Methylprednisolone Sodium Succinate 40 mg BID IV 05/06/24 22:00 05/11/24 12:30 40 MG Morphine Sulfate 2 mg Q4HPRN PRN IV 05/08/24 09:30 05/09/24 21:29 2 MG Mupirocin 1 applic BID EACHNOSTRI 05/09/24 22:00 05/14/24 21:59 05/11/24 10:00 1 APPLIC Sevelamer HCl 2,400 mg TIDWM PO 05/10/24 12:00 Enteral Nutritional Formula 240 ml QID PO 05/10/24 22:00 Amino Acids 0 ml @ 0 mls/hr PER PHARMACY IV 05/10/24 19:45 Amino Acids/ Electrolytes/ Dextrose 2,000 ml @ 40 mls/hr DAILY@2200 IV 05/10/24 22:00 05/10/24 21:45 40 MLS/HR Diagnostic Test (Pha) 1 strip Q6HR 05/11/24 12:00 05/11/24 12:34 1 STRIP Insulin Human Regular FOLLOW SLIDING SCALE Q6HR SC 05/11/24 12:00 Dextrose 50 ml UD IV 05/11/24 12:00 Laboratory Results Laboratory Tests 05/11/24 04:50 Chemistry Test 05/11/24 04:50 Albumin 3.1 g/dL (3.2-4.8) L Calcium Level 7.5 mg/dL (8.7-10.4) L Magnesium Level 2.8 mg/dL (1.6-2.6) H Phosphorus Level 11.8 mg/dL (2.4-5.1) H Total Protein 6.4 g/dL (5.7-8.2) LFT Test 05/11/24 04:50 Alanine Aminotransferase (ALT) 71 U/L (7-40) H Alkaline Phosphatase 465 U/L (46-116) H Aspartate Amino Transferase (AST) 421 U/L (13-40) H Total Bilirubin 7.7 mg/dL (0.2-1.0) H Urinalysis Test 05/07/24 00:00 Urine Color Red (Yellow) Urine Clarity Ex.turbid (Clear) Urine pH 6.5 (5.0-9.0) Urine Specific [place] 1.018 (1.001-1.035) Urine Protein 3+ (Negative) H Urine Ketones Negative (Negative) Urine Blood 3+ /uL (Negative) H Urine Nitrite Negative (Negative) Urine Bilirubin 1+ (Negative) Urine Urobilinogen Normal mg/dL (Negative) Urine Leukocyte Esterase Trace /uL (Negative) Urine RBC 4356 /hpf (0 - 3) Urine Microscopic WBC 197 /HPF (0-3) H Urine Squamous Epithelial Cells None seen /hpf (<5) Urine Bacteria None seen /hpf (None Seen) Urine Glucose Trace mg/dL (Normal) Microbiology Microbiology Date/Time Source Procedure Growth Status 05/07/24 00:00 Voided Urine Urine Culture - Final Presumptive Nia albicans Complete 05/06/24 14:10 Blood Blood Culture - Preliminary NO GROWTH AFTER 72 HOURS OF INCUBATION. Resulted 05/06/24 12:03 Nose MRSA Screen - Final Methicillin Resistant S.aureus Complete Assessment/Plan Assessment/Plan Severe sepsis with septic shock Bradycardia Possible GI bleed Acute on chronic kidney disease Acute heart failure, possibly systolic Pulmonary edema Hyperkalemia Anemia, macrocytic History of chronic kidney disease stage 3 Elevated liver function tests with a total bilirubin of 5.3 Lactic acidosis NSTEMI Urinary retention History of heart failure and cardiomyopathy History of CVA Atrial fibrillation on Xarelto Mixed hyperlipidemia Type 2 diabetes BPH Recent sepsis and respiratory failure History of gout GERD Plan Admit to ICU Dopamine drip Oxygen as needed Calcium gluconate Lokelma Keep NPO now Nephrology consult Cardiology consult Echocardiogram Urology consult because a Brown catheter could not be inserted Possible urinary retention Broad-spectrum antibiotics meropenem and Zyvox 05/07/24: Hyperkalemia: Protocol Worsening CKD: HD per nephrology Dialysis catheter planned Transfuse FFP Vit K IV antibiotics: Meropenem & Zyvox IV steroids Vasopressors prn EF 25-30% Hematuria Urinary retention Coagulopathy due to sepsis? 05/08/2024: Give morphine p.r.n. for the pain Vitamin K 5 mg IV x1 Hemodialysis scheduled for today Levophed drip as needed Bumex drip IV antibiotics with meropenem and linezolid Infectious Disease consultation Nephrology is on case and following Anemia: Monitor hemoglobin and transfuse as needed 05/09/2024: Coagulopathy: Transfuse 1 unit FFP End-stage renal disease: Hemodialysis again today Sepsis: Continue IV antibiotics with meropenem and Zyvox Septic shock: Continue Levophed drip Hematuria: Urology Service is on case MRSA in nares: Start mupirocin 05/10/2024: Give vitamin K 10 mg subQ Do a swallow eval Advance diet as tolerated Hemodialysis per nephrology IV antibiotics Zyvox and meropenem IV steroids Monitor closely 05/11/2024: Vitamin K Swallow eval is pending Clinimix Hemodialysis per nephrology Monitor closely Plan discussed with: Patient, Other My Orders Orders - RONALD SUÁREZ MD Procedure Category Date Status Time * Swallow Request ST 05/10/24 Transmitted 14:18 Modified Resuscitive CODE 05/10/24 Transmitted Measures Clinimix Per Pharmacy CAT 05/10/24 In Process 15:25 Nutritional PHA 05/10/24 In Process Supplements (Nepro 22:00 Clinimix Per Pharmacy PHA 05/10/24 In Process 19:45 Amino Acid Infusion PHA 05/10/24 In Process In D10w (Cl[facility]imix 4. 22:00 [facility]im[facility] Per Pharmacy CAT 05/10/24 In Process 22:00 Glucose Blood PHA 05/11/24 In Process (Accu-Chek Comfort 12:00 Insulin R (Human) PHA 05/11/24 In Process (Insulin R) 12:00 Dextrose 50% Syringe PHA 05/11/24 In Process 12:00 Comprehensive LAB 05/12/24 Verified Metabolic Panel 04:00 Magnesium LAB 05/12/24 Verified 04:00 Phosphorus LAB 05/12/24 Verified 04:00 Clinim[facility] Per Pharmacy CAT 05/11/24 In Process 22:00 Npo (Nothing By DIET 05/11/24 Transmitted Mouth) Diet Lunch Date of Service: May 11, 2024 Billing Provider: RONALD SUÁREZ MD Common Visit Codes: NOT BILLABLE RONALD SUÁREZ MD May 11, 2024 13:16
--- NOTE | 2024-05-11 15:09 | DVH ---
EXAM: US LIVER CLINICAL HISTORY: Persistent elevated liver enzymes TECHNIQUE: Grayscale and limited color flow doppler ultrasound of the right upper quadrant is perfor med. COMPARISON: None Findings: Liver measures 17.4 cm in length with increased echotexture and contour. No evidence of intra- or ex trahepatic ductal dilatation. 2.6 x 2.5 x 2.5 cm echogenic lesion in the left lobe. 1.0 x 0.8 x 0.7 c m echogenic lesion in the right lobe. Common bile duct measures 0.2 cm in diameter. Normal hepatopedal flow noted within the portal vein. M ild perihepatic free fluid is noted. Gallbladder wall thickness measuring 0.7 cm. None shadowing echogenic calculus. Mild pericholecystic free fluid and biliary sludge. Negative sonographic Pulido's sign. Pancreas only partially visualized due to overlying bowel gas but is otherwise unremarkable. Right kidney measures 10.0 cm with normal contours, increased echotexture and normal cortical thickne ss. No evidence of hydronephrosis, calculi, cystic or solid renal lesions. Partially visualized inferior vena cava unremarkable. Impression: 1. No evidence of acute right upper quadrant abnormalities. 2. Hepatomegaly with hepatic steatosis. 3. Mild perihepatic free fluid and right pleural effusion. 4. Hepatic echogenic lesions in both lobes may reflect hemangiomas versus focal fatty infiltration, w ith other etiologies not excluded. Attention on follow-up. 5. Cholelithiasis with gallbladder wall thickening and pericholecystic free fluid, but with a negativ e sonographic pulido's sign. Findings are suspicious for but not diagnostic of acute cholecystitis. C onsider nuclear medicine hepatobiliary scan for further evaluation. 6. Increased echogenicity of the right kidney. Correlate for medical renal disease.
[2024-05-11] MEDS ORDERED: HYDROMORPHONE HCL 1 MG/ML INJ IV ONE (16:00)
--- NOTE | 2024-05-11 20:27 | RESUS ---
CODE BLUE ASSESSSMENT History of Events History of Events: Pt's heart rate began to slow and then went asystole. DAWSON IZQUIERDO called. Pt was made a modified code with only vasopressors and BiPAP, no ACLS, no chest compressions as of 05/10/24. Pt admitted to ICU on 05/06/24 for sepsis and bradycardia. Initial Information Date: May 11, 2024 Time: 19:38 Location of Arrest: ICU (Central) Arrest Witnessed: Yes CPR started by whom: NO CPR Pre-Hospital Care: Pre-Code Care (inpatient) Type of arrest: Cardiac, Adult, Witnessed Spontaneous Respirations: Yes Pulse Present: No Monitoring: ECG, Pulse Oximetry, Telemetry Comment: Pt modified code with no chest compressions Airway Ventilation Breathing at Onset: Agonal Comments: Pt modified code with no intubation Circulation Circulation #1: Time: 19:38 Pulse Rate (adult): 0 Blood Pressure Systolic: 90 Blood Pressure Diastolic: 52 Temperature (Fahrenheit): 98.2 Circulation #2: Time: 19:42 Pulse Rate (adult): 0 Blood Pressure Systolic: 0 Blood Pressure Diastolic: 0 Circulation Comment: TOD Procedure - IV Procedure - IV #1: IV Side: Right IV Location: Upper Arm Anterior IV Catheter Type: Saline Lock IV Placed: In Hospital IV Gauge: 22 Comment Placed prior to code Procedure - IV #2: IV Side: Right IV Location: Forarm Posterior IV Catheter Type: Saline Lock IV Placed: In Hospital IV Gauge: 20 Comment Placed prior to code Procedure - IV #3: IV Side: Right IV Location: Forearm Anterior IV Catheter Type: Saline Lock IV Placed: In Hospital IV Gauge: 20 Comment Placed prior to code Procedure - Central Venous Cat Central venous catheter site: Rt Femoral Comment: Placed prior to code Procedure - Brown Catheter Urinary Catheter Type/Location: Uretheral (Brown) Urine Appearance: Cloudy Urine Color: Straw Brown Catheter Secured: Yes Comment: Placed prior to code Nurses Notes Fielding Coma Scale Eye Opening: None (1) Fielding Coma Scale Verbal: None (1) Fielding Coma Scale Motor: None (1) Glascow Total: 3 Pupil Reaction: Non Reactive Time Code Ended Time Code Ended: 19:42 Post Arrest Status: Outcome of code: Unsuccessful Patient pronounced by: Resident Pete Time patient pronounced: 19:42 Family notified: Yes Attending called: Yes Code Team Present: Resident Sharmila; Dr. Rhodes, Hospitalist; Evelyn Garcia, RN - ICU Charge; Jenni Davis, RN - Log Handling Equipment Operator; Earl Durbin RN - AM Primary RN; Charissa Garcia RN - NOC Primary RN; Cassia Antoine, RN; LETHA Duarte Ashley Mar 13, 2025 20:27
[2024-05-11] MEDS: EPOETIN ALFA-EPBX 10,000 UNIT/1ML VIAL SC ONE (21:03)
--- NOTE | 2024-05-11 23:06 | DVHPN2 ---
Progress Note - Dictate Date Seen: May 11, 2024 Medical Necessity Reason Pt with a Central, PICC or Fol: Yes The following are medically ne: Central Line, Starkey Catheter Reason for starkey catheter: Strict I&O Subjective Patient seen and examined at bedside. Remains on supplemental oxygen Overnight events reviewed. vital signs Vital Sign Date Time Temp Pulse Resp B/P (MAP) Pulse Ox O2 Delivery O2 Flow Rate FiO2 05/11/24 20:27 0 05/11/24 19:15 11 89/53 (65) 95 05/11/24 18:00 Nasal Cannula* 4 36 Total Intake and Output 05/10/24 05/10/24 05/11/24 14:59 22:59 06:59 Intake Total 222.876 ml 443.126 ml 695.00 ml Output Total 15 ml 11 ml Balance 222.876 ml 428.126 ml 684.00 ml medications Current Medications Medications Dose Ordered Sig/Eloy Route Start Time Stop Time Status Last Admin Dose Admin Nitroglycerin 0.4 mg Q5MINP PRN SL 05/06/24 10:45 Morphine Sulfate 2 mg Q30M PRN IV 05/06/24 10:45 05/09/24 03:25 2 MG Pantoprazole Sodium 40 mg BID IV 05/06/24 22:00 05/11/24 12:30 40 MG Ondansetron HCl 4 mg Q4HPRN PRN IV 05/06/24 11:00 05/06/24 15:41 4 MG Meropenem 50 ml @ 17 mls/hr Q12HR IV 05/06/24 22:00 05/11/24 10:00 17 MLS/HR Norepinephrine Bitartrate 32 mg/ Sodium Chloride 250 ml @ 0.938 mls/ hr Q24H IV 05/06/24 13:00 05/11/24 13:00 3.75 MLS/HR Linezolid 300 ml @ 300 mls/hr Q12H IV 05/06/24 17:00 05/11/24 17:00 300 MLS/HR Methylprednisolone Sodium Succinate 40 mg BID IV 05/06/24 22:00 05/11/24 12:30 40 MG Morphine Sulfate 2 mg Q4HPRN PRN IV 05/08/24 09:30 05/09/24 21:29 2 MG Mupirocin 1 applic BID EACHNOSTRI 05/09/24 22:00 05/14/24 21:59 05/11/24 10:00 1 APPLIC Sevelamer HCl 2,400 mg TIDWM PO 05/10/24 12:00 Enteral Nutritional Formula 240 ml QID PO 05/10/24 22:00 Amino Acids 0 ml @ 0 mls/hr PER PHARMACY IV 05/10/24 19:45 Amino Acids/ Electrolytes/ Dextrose 2,000 ml @ 40 mls/hr DAILY@2200 IV 05/10/24 22:00 05/10/24 21:45 40 MLS/HR Diagnostic Test (Pha) 1 strip Q6HR 05/11/24 12:00 05/11/24 18:00 1 STRIP Insulin Human Regular FOLLOW SLIDING SCALE Q6HR SC 05/11/24 12:00 05/11/24 18:00 4 UNITS Dextrose 50 ml UD IV 05/11/24 12:00 objective Gen.: Patient lying in bed in no apparent distress. On supplemental oxygen. Head: Normocephalic, atraumatic. Eyes: EOMI/PERRLA. Ears: Normal hearing. Normal anatomy. Neck/trachea: Trachea midline, supple. Nose: Normal external anatomy. Mouth: Moist mucous membranes. Chest: Decreased air entry bilaterally. No wheezing or rhonchi. Cardiovascular: Positive S1, positive S2. Regular rate and rhythm. Abdomen: Positive bowel sounds in all 4 quadrants. Soft, non-tender, non- distended. : Deferred. Rectal: Deferred. Skin: Warm, dry. Intact. Extremities: 2+ radial pulses bilaterally. No lower extremity edema. Neuro: Awake, alert, oriented x3. No gross motor or sensory deficits. Cranial nerves II through XII intact. Gait not assessed. laboratory and microbiology Laboratory Tests 05/11/24 04:50 Test 05/11/24 04:50 Range/Units Serum Glucose 185 H 74-106 mg/dL Assessment/Plan Impression: Acute hypoxic respiratory failure Dependence on supplemental oxygen Acute COPD exacerbation CHF exacerbation Metabolic acidosis Obesity BMI 39.4 Events: Remains on supplemental oxygen On 3 LPM NC Continue to taper O2 as tolerated S/p hemodialysis - removed 1.4 liters. On pressors for hemodynamic support Levophed 12 mcg/min Titrate to keep MAP above 65 mmHg/SBP above 90 mmHg. Increased pressor requirements during hemodialysis 1 unit FFP transfusion yesterday d/t epistaxis Hematuria noted via Starkey Bleeding/oozing from right femoral Richi/central line sites. Continue steroids Continue antibiotics Incentive spirometry Poor PO intake. Clinimix for nutritional support HD per Nephrology Monitor renal function Monitor electrolytes. Supplement as necessary. Monitor ins and outs. Nephrology recs appreciated. Monitor hemoglobin closely - 8.3 g/dL Monitor PT/INR. Labs and imaging reviewed. Rest of plan as noted below. Plan: Continue supplemental oxygen Titrate to keep O2 sats above 92%. S/p right femoral Richi cath for HD + central line for administration of pressors On pressors for hemodynamic support Titrate to keep MAP above 65 mmHg/SBP above 90 mmHg. Continue antibiotics Continue steroids - Solu-Medrol IV 40 mg q.12 hours Incentive spirometry Monitor renal function. Monitor electrolytes. Supplement as necessary. Monitor ins and outs. Nephrology recs appreciated. DVT prophylaxis. Prognosis: Poor given patient's multiple co-morbidities. Condition: Critical Rest of plan per hospitalist and other consultants. A total of 35 minutes of critical care time was spent reviewing the patient record, examining the patient, making a diagnostic and therapeutic plan, discussing this plan with the medical personnel, following up on diagnostic studies and following the patient for clinical stability excluding any and all procedures. At least 50% of this time was spent in direct, [id number] contact. Thank you, Dr. Camarena, for allowing me to participate in this patient's care. Further recommendations will depend on the patient's clinical course. Please do not hesitate to contact me if you have any questions or concerns. This medical document was created using an electronic medical record system with [employer] dictation system. Although these documentations are being carefully reviewed, there may still be some phonetic and typographical changes. The errors are purely typographical, due to imperfection on the software program, and do not reflect any compromise in the patient's medical care. Dietary Evaluation Review Comments: 1) Ensure clear 8floz TID 2) Advance diet as medically feasible 3) Consider [id number] + renal standard diet as goal diet 4) Continue current plan of care Expected Outcomes/Goals: Pt will meet 75% estimated needs Fu 2-3 days Plan discussed with: Other (RN Ty) Critical Care Time(min): 35 WENCESLAO ESCOBAR MD May 11, 2024 23:05
--- NOTE | 2024-05-12 22:48 | DVHDS2 ---
Discharge Summary Date of Admission May 06, 2024 at 10:41 Date of Discharge: May 11, 2024 Labs/Diagnostic Data: Laboratory Results Test 05/11/24 18:33 05/11/24 04:50 05/11/24 03:40 05/10/24 04:47 POC Glucose 173 mg/dl (70-106) White Blood Count 16.9 10^3/uL (4.4-10.8) Red Blood Count 2.62 10^6/uL (4.5-5.90) Hemoglobin 8.3 g/dL (13.5-17.5) Hematocrit 26.3 % (41.0-53.0) Mean Corpuscular Volume 100.0 fL (80.0-100.0) Mean Corpuscular Hemoglobin 31.5 pg (28.0-32.0) Mean Corpuscular Hemoglobin Concent 31.5 g/dL (32.0-36.0) Red Cell Distribution Width 20.3 % (11.8-14.3) Platelet Count 175 10^3/uL (140-450) Mean Platelet Volume 10.4 fL (6.9-10.8) Neutrophils (%) (Auto) % (37.0-80.0) Lymphocytes (%) (Auto) % (10.0-50.0) Monocytes (%) (Auto) % (0.0-12.0) Basophils (%) (Auto) % (0.0-2.0) Neutrophils # (Auto) 10 ^3/uL (1.6-8.6) Lymphocytes # (Auto) 10 ^3/uL (0.4-5.4) Monocytes # (Auto) 10 ^3/uL (0-1.3) Differential Total Cells Counted 100.0 (100) Neutrophils % (Manual) 97 (37.0-80.0) Band Neutrophils % (Manual) 0 Lymphocytes % (Manual) 1 (10.0-50.0) Monocytes % (Manual) 2 (0-12) Eosinophils % (Manual) 0 (0-7) Basophils % (Manual) 0 (0.0-2.0) Metamyelocytes % (manual) 0 Myelocytes % (Manual) 0 Promyelocytes % (Manual) 0 Blast Cells % (Manual) 0 Reactive Lymphocytes 0 Platelet Estimate Adequate Sodium Level 135 mmol/L (136-145) Potassium Level 5.3 mmol/L (3.5-5.1) Chloride Level 96 mmol/L (98-107) Carbon Dioxide Level 17 mmol/L (20-31) Anion Gap 22 (5-15) Blood Urea Nitrogen 113 mg/dL (9-23) Creatinine 5.30 mg/dL (0.700-1.30) Glomerular Filtration Rate Calc 11 mL/min (>90) BUN/Creatinine Ratio 21.3 (10.0-20.0) Serum Glucose 185 mg/dL (74-106) Calcium Level 7.5 mg/dL (8.7-10.4) Phosphorus Level 11.8 mg/dL (2.4-5.1) Magnesium Level 2.8 mg/dL (1.6-2.6) Total Bilirubin 7.7 mg/dL (0.2-1.0) Aspartate Amino Transferase (AST) 421 U/L (13-40) Alanine Aminotransferase (ALT) 71 U/L (7-40) Alkaline Phosphatase 465 U/L (46-116) Total Protein 6.4 g/dL (5.7-8.2) Albumin 3.1 g/dL (3.2-4.8) Stool Occult Blood Positive (Negative) Stool Occult Blood Sample #3 (Negative) Eosinophils (%) (Auto) 0.0 % (0.0-7.0) Eosinophils # (Auto) 0 10 ^3/uL (0-0.8) Basophils # (Auto) 0 10 ^3/uL (0-0.2) Nucleated Red Blood Cells 0.3 % Prothrombin Time 15.5 sec (9.3-11.8) Prothrombin Time INR 1.52 (0.9-1.15) Activated Partial Thromboplast Time 28.3 SEC (24.5-34.5) Ferritin 277.4 ng/mL (22-322) Anti-Nuclear Antibody Screen Negative (Negative) Test 05/08/24 05:18 05/07/24 00:00 05/06/24 19:34 05/06/24 17:07 Serum Immunoglobulin G 1730 mg/dL (603-1613) Iron Level 34 ug/dL (65-175) Total Iron Binding Capacity 236 ug/dL (250-425) Percent Iron Saturation 14.4 % (20-55) Globulin (PEP) 4.0 g/dL (2.2-3.9) Albumin/Globulin Ratio 0.6 (0.7-1.7) Cveet-3-Fywdwvjfd 0.4 g/dL (0.0-0.4) Jhakg-8-Vongjcwea 0.7 g/dL (0.4-1.0) Beta Globulins 0.9 g/dL (0.7-1.3) Gamma Globulins 2.0 g/dL (0.4-1.8) Protein Electrophoresis M-Deniz Not observed g/dL (Not Protein Electrophoresis Note Comment (.) Parathyroid Hormone (Intact) 801.6 pg/mL (18.4-80.1) Immunoglobulin A 728 mg/dL (61-437) Immunoglobulin M 161 mg/dL (20-172) Serum Immunofixation Comment (.) Anti-Nuclear Antibody Comment Comment (.) LOPEZ-1 Antibody <0.2 AI (0.0-0.9) SS-A/Ro Antibody <0.2 AI (0.0-0.9) SS-B/La Antibody <0.2 AI (0.0-0.9) Sm Antibody <0.2 AI (0.0-0.9) BEHAVIOR MANAGEMENT SPECIALIST Antibody 0.2 AI (0.0-0.9) Scl-70 (Scleroderma) Antibody <0.2 AI (0.0-0.9) Anti-Double Strand DNA Antibody 1 IU/mL (0-9) Chromatin Antibody <0.2 AI (0.0-0.9) Centromere B Antibody <0.2 AI (0.0-0.9) Complement C3 78 mg/dL (82-167) Complement C4 5 mg/dL (12-38) Free [place] Light Chains, Quant 200.1 mg/L (3.3-19.4) Free [place]/Lambda Light Chain Ratio 1.56 (0.26-1.65) Hepatitis A IgM Antibody Negative Hepatitis B Surface Antigen Negative (Negative) Hepatitis B Core IgM Antibody Negative (Negative) Hepatitis C Antibody Negative (Negative) HIV (1&2) Antibody Negative (Negative) Urine Color Red (Yellow) Urine Clarity Ex.turbid (Clear) Urine pH 6.5 (5.0-9.0) Urine Specific Chloride 1.018 (1.001-1.035) Urine Protein 3+ (Negative) Urine Ketones Negative (Negative) Urine Blood 3+ /uL (Negative) Urine Nitrite Negative (Negative) Urine Bilirubin 1+ (Negative) Urine Urobilinogen Normal mg/dL (Negative) Urine Leukocyte Esterase Trace /uL (Negative) Urine RBC 4356 /hpf (0 - 3) Urine Microscopic WBC 197 /HPF (0-3) Urine Squamous Epithelial Cells None seen /hpf (<5) Urine Bacteria None seen /hpf (None Seen) Urine Glucose Trace mg/dL (Normal) Troponin I High Sensitivity 671 ng/L (</=54) Blood Gas Specimen Type Arterial Blood Gas Sample Site Left radial Blood Gas Patient Temperature 37.0 Arterial Blood Date Drawn [id number] Arterial Blood pH 7.374 (7.350-7.450) Arterial Blood Partial Pressure CO2 28.0 mmHg (35.0-48.0) Arterial Blood Partial Pressure O2 68.1 mmHg (83.0-108.0) Arterial Blood HCO3 16.0 mmol/L (21.0-28.0) Arterial Blood Oxygen Saturation 90.0 % (94.0-98.0) Arterial Blood Base Excess -8.1 mmol/L (-2.0-3.0) Arterial Blood Oxyhemoglobin 89.2 % (94.0-98.0) Arterial Blood Carboxyhemoglobin 0.6 % (0.5-1.5) Arterial Blood Methemoglobin 0.3 % (0.0-1.5) Manuel Test Modified Blood Gas Total Hemoglobin 9.60 g/dL (13.5-17.5) Blood Gas Liter Flow 50.00 Blood Gas Modality High flow FiO2 % 55.0 Test 05/06/24 12:08 05/06/24 10:38 05/06/24 08:40 Blood Gas Critical Value Read Back Yes Blood Gas Notified Whom Dr. orellana Blood Gas Notified Time [id number] Blood Gas Notified By Kobi phan rrt Lactic Acid Level 4.5 mmol/L (0.4-2.0) Hemoglobin A1c 5.7 % A1C (<5.7) B-Type Natriuretic Peptide 981.10 pg/mL (0-100) Triglycerides Level 94 mg/dL (< 150) Cholesterol Level 88 mg/dL (< 200) LDL Cholesterol 46 mg/dL (< 100) HDL Cholesterol 13 mg/dL (40-59) Thyroid Stimulating Hormone (TSH) 8.04 uIU/mL (0.55-4.78) Other Laboratory Tests 05/11/24 04:50 Brief Hx & Hospital Course: Final Diagnoses: Severe sepsis with septic shock Bradycardia Possible GI bleed Acute on chronic kidney disease Acute heart failure, possibly systolic Pulmonary edema Hyperkalemia Anemia, macrocytic History of chronic kidney disease stage 3 Elevated liver function tests with a total bilirubin of 5.3 Lactic acidosis NSTEMI Urinary retention History of heart failure and cardiomyopathy History of CVA Atrial fibrillation on Xarelto Mixed hyperlipidemia Type 2 diabetes BPH Recent sepsis and respiratory failure History of gout GERD He was admitted for sepsis on Vasopressors ALCIDES did not improve with aggressive treatments He had urinary obstruction requiring urology consult to insert a Brown He had hematuria and oozing from lines due to coagulopathy due to sepsis IV antibiotics were given He was given FFP and Vit K He also had fluid overload, EF at 25-30% Kidney function worsened and he needed dialysis Hemodialysis was started He remained very sick, hypotensive, with hematuria and coagulopathy did not improve with aggressive treatments On 05/11/24 in the evening he became with more agonal breathing, hypoxic, code blue called, he was modified DNR/DNI, he was pronounced . Time of 19:42 Condition at Discharge: Poor Final Diagnosis/Problems List Severe sepsis with septic shock Bradycardia Possible GI bleed Acute on chronic kidney disease Acute heart failure, possibly systolic Pulmonary edema Hyperkalemia Anemia, macrocytic History of chronic kidney disease stage 3 Elevated liver function tests with a total bilirubin of 5.3 Lactic acidosis NSTEMI Urinary retention History of heart failure and cardiomyopathy History of CVA Atrial fibrillation on Xarelto Mixed hyperlipidemia Type 2 diabetes BPH Recent sepsis and respiratory failure History of gout GERD Discharge Disposition: at Hospital SNF Discharge Will this Physician continue t: No Discharge Statement: "Patient was advised to return to the ER or call 911 if any headaches, dizziness, shortness of breath, chest pain, abdominal pain, bleeding, fevers, or worsening of medical condition. Patient was counseled about treatment plan, medications, possible side effects, patientverbalized understanding. All questions were answered to the best of my ability. This discharge took greater then 30 minutes in planning, reviewing documentation, counseling the patient, and discussing with other team members." ASSESSMENT ASSESSMENT Assessment same Date of Service: May 11, 2024 Billing Provider: RONALD ORELLANA MD Common Visit Codes: 98474-AKV/OBS DISCH DAY >30min RONALD ORELLANA MD May 12, 2024 22:48
== END 2024-05-11 23:23 | DRG 871 ==
LOC: EDBD 08:10 → ER 08:10 → EEVIPCON 10:41 → OVERFLOW 10:41 → ICU CENTRL 11:50
PROVIDERS: ADMIT Internal Medicine Geriatric Medicine; ATTEND Internal Medicine Geriatric Medicine
PROC: 5A0935A Assistance with Respiratory Ventilation, Less than 24 Consecutive Hours, High Flow/Velocity Cannula (ICD-10-PCS; 2024-05-06)
PROC: 0T9B70Z Drainage of Bladder with Drainage Device, Via Natural or Artificial Opening (ICD-10-PCS; 2024-05-06)
PROC: 06HY33Z Insertion of Infusion Device into Lower Vein, Percutaneous Approach (ICD-10-PCS; principal; 2024-05-07)
PROC: B54BZZA Ultrasonography of Right Lower Extremity Veins, Guidance (ICD-10-PCS; 2024-05-07)
PROC: 30233K1 Transfusion of Nonautologous Frozen Plasma into Peripheral Vein, Percutaneous Approach (ICD-10-PCS; 2024-05-07)
PROC: 5A1D70Z Performance of Urinary Filtration, Intermittent, Less than 6 Hours Per Day (ICD-10-PCS; 2024-05-08)
PROC: 5A1D70Z Performance of Urinary Filtration, Intermittent, Less than 6 Hours Per Day (ICD-10-PCS; 2024-05-09)
PROC: 5A1D70Z Performance of Urinary Filtration, Intermittent, Less than 6 Hours Per Day (ICD-10-PCS; 2024-05-11)
DX: A41.9 Sepsis, unspecified organism (principal); I21.4 Non-ST elevation (NSTEMI) myocardial infarction; J96.01 Acute respiratory failure with hypoxia; I50.23 Acute on chronic systolic (congestive) heart failure; R65.21 Severe sepsis with septic shock; E87.20 Acidosis, unspecified; I13.0 Hypertensive heart and chronic kidney disease with heart failure and stage 1 through stage 4 chronic kidney disease, or unspecified chronic kidney disease; J44.1 Chronic obstructive pulmonary disease with (acute) exacerbation; K92.2 Gastrointestinal hemorrhage, unspecified; N17.9 Acute kidney failure, unspecified; N13.8 Other obstructive and reflux uropathy; D68.8 Other specified coagulation defects; T83.83XA Hemorrhage due to genitourinary prosthetic devices, implants and grafts, initial encounter; N30.01 Acute cystitis with hematuria; E11.22 Type 2 diabetes mellitus with diabetic chronic kidney disease; D53.9 Nutritional anemia, unspecified; E66.9 Obesity, unspecified; E78.2 Mixed hyperlipidemia; E87.5 Hyperkalemia; I07.1 Rheumatic tricuspid insufficiency; I37.1 Nonrheumatic pulmonary valve insufficiency; I48.0 Paroxysmal atrial fibrillation; K21.9 Gastro-esophageal reflux disease without esophagitis; N18.30 Chronic kidney disease, stage 3 unspecified; I46.9 Cardiac arrest, cause unspecified; Z66 Do not resuscitate; R33.8 Other retention of urine; Z68.39 Body mass index [BMI] 39.0-39.9, adult; N32.0 Bladder-neck obstruction; N40.1 Benign prostatic hyperplasia with lower urinary tract symptoms; E83.39 Other disorders of phosphorus metabolism; M10.9 Gout, unspecified; R74.01 Elevation of levels of liver transaminase levels; D63.1 Anemia in chronic kidney disease; R04.0 Epistaxis; Z86.73 Personal history of transient ischemic attack (TIA), and cerebral infarction without residual deficits; Z88.0 Allergy status to penicillin; Z88.6 Allergy status to analgesic agent; Z86.718 Personal history of other venous thrombosis and embolism; Z79.01 Long term (current) use of anticoagulants; Z99.2 Dependence on renal dialysis; Z99.81 Dependence on supplemental oxygen; Z79.82 Long term (current) use of aspirin; Z79.84 Long term (current) use of oral hypoglycemic drugs; Z79.4 Long term (current) use of insulin; R31.0 Gross hematuria
CPT/HCPCS: 36415; 36430; 36556; 36600; 71045; 74176; 76705; 76775; 76937; 80048; 80053; 80061; 80074; 81001; 82270; 82728; 82784; 82805; 82962; 83036; 83516; 83521; 83540; 83550; 83605; 83735; 83880; 83970; 84100; 84155; 84165; 84443; 84484; 85007; 85014; 85018; 85025; 85027; 85610; 85730; 86038; 86160; 86225; 86235; 86334; 86703; 86850; 86900; 86901; 87040; 87081; 87086; 87088; 90935; 92610; 93005; 93306; 93971; 94640; 96365; 96366; 96367; 96375; 99291; 99292; G0378; J1642; J1815; J2185; J2405; J2470; J3430; P9047